=== PATIENT | male | born 1950 | race Caucasian/White ===

== ENCOUNTER 2024-06-08 10:36 | Outpatient (AMB) | payer MEDICARE, SELFPAY ==
[2024-06-08 10:38] VITALS: BP 116/83; PULSE 84; BMI 25.8
--- NOTE | 2024-06-08 10:38 | A.OFFVIS_ITS ---
Vital Signs 3 06/08/24 10:38 Height 5 ft 10 in Weight 179 lb 14.355 oz BMI 25.8 BP 116/83 Blood Pressure Location Rt brachial Position Sitting Pulse 84 Intake Visit Reasons: [place] screening, trouble swallowing Intake Note: New patient in office today for colonoscopy screening and trouble swllowing. . CC: Lexus c/o trouble swallowing for about two years. He reports that he feels like a bruise when he touches the left side of his throat/neck. Per patient sometimes he feels the food stays stuck and he has to stop eating to go and try take the food out. Environmental Services Coordinator Required: No Accompanied by: Self / Same As Patient Allergies No Known Allergies Allergy (Verified 06/08/24 10:50) HPI HPI [place] screening, trouble swallowing: Details: (with Carline) Patient is a 73-year-old male who comes in today for dysphasia. Referred by PCP. He reports onset couple years ago with recent exacerbation in symptoms States the sensations is at the throat area. Shares symptoms primarily occur with solids, rice is the main culprit. Endorses trouble with cold liquids but rare-can tolerate shakes/smoothies without difficulty. States symptoms occur with approximately 30% of his meals. When asked about appetite changes he a decreased appetite with an approximate 5lb weight loss in the past month. Associated symptoms: Left side of throat tenderness to touch X 8-10 months, decreased in appetite X one month, hoarseness but rare Aggravating factors: As above Alleviating attempts: hydration, induced evacuation of food, slow chewing Patient denies: systemic symptoms, n/v or melena/hematochezia Chronic GERD, relieved with occasional OTC TUMS. Previously on PPI, off for years Cochlea implant placement one week ago. Prescribed opioids for pain, now with constipation. Otherwise with normal stools without bleeding. Reports tolerating anesthesia well known hemorrhoids. Stable Recent sleep study indicating severe sleep apnea , follow up pending to review CPAP needs. Off rosuvastatin X 6 months, secondary to muscles weakness to legs. Reports recent labs with stable results, including TSH and lipids. Did have benign thyroid biopsy decade ago Last colonoscopy 2016 at [facility]. EGD at the same time. He does not recall any concerning findings. Prefers that Dr. Tavarez completes endoscopy/colonoscopy Social hx: 1 drink approx 6x/year denies recreational drug use Non-smoker Denies personal CA hx Denies family hx of CA Per patient presented labs via PCP portal collected 06/01/24: Normal CMP, CBC, iron studies and ferritin TSH last collected 10/2023 and in normal range [facility] Medical History (Updated 06/08/24 @ 15:47 by BIENVENIDO Merino) External hemorrhoids Insomnia Hypothyroid Hearing loss in right ear DMITRI (obstructive sleep apnea) Dysphagia Surgical History History of esophagogastroduodenoscopy (EGD) H/O colonoscopy S/P ureteral reimplantation H/O shoulder surgery S/P trigger finger release H/O lymph node excision History of lumbar surgery S/P endoscopic carpal tunnel release Previous back surgery Family History Brother Coronary artery disease Heart disease Mother Heart disease Father Stroke Social History Alcohol intake: current Alcohol intake frequency: holidays/special occasions only Patient Tobacco Use Status: Never used Tobacco Review of Systems Const All systems reviewed & are unremarkable except as noted in HPI and below Physical Exam Vital Signs: Last Vital Signs Pulse 84 06/08/24 10:38 BP 116/83 06/08/24 10:38 BMI result Body Mass Index 25.8 Const General: healthy appearing, no acute distress and well developed Nutritional Appearance: well nourished Orientation/consciousness: patient oriented x3 HEENT Head: Yes normal to inspection, Yes normocephalic and Yes atraumatic Ears: hearing grossly impaired on the right Face and sinus: Yes normal facial exam Face images: 2 1. Marked tenderness with palpation Mouth: Normal oral and palatal mucosa present Throat: Yes posterior oropharynx normal, Yes uvula midline and Yes tonsils absent Eyes General: appearance normal, both eyes and all related structures Neck Neck: Yes normal visual inspection Thyroid: Thyroid normal Resp Effort & Inspection: normal respiratory effort, able to speak in complete sentences, no tracheal deviation and symmetric chest movement Auscultation: clear to auscultation bilaterally Cardio Jugular venous distension: no JVD Rate: regular rate Rhythm: regular rhythm Heart sounds: S1 normal heart sound present, S2 normal heart sound present, no gallops and no murmurs GI Inspection: Yes normal to inspection and No distended Palpation (GI): Soft to palpation, not firm, nontender and No hepatosplenomegaly present Auscultation: normal bowel sounds Skin General skin exam: elasticity normal and turgor normal Neuro General: patient oriented x3 Gait exam (Neuro): Normal gait present Psych Appearance: grossly normal Mental Status: mental status grossly normal Speech and movement: Normal speech and movement present Affect: normal affect Attitude: cooperative Thought process: Normal thought process present Thought content: Normal thought content present Insight: Good insight present (Psych) Judgement: Good judgement present (Psych) Assessment & Plan Assessment & Plan (1) Pre-op examination: Code(s): Z01.818 - Encounter for other preprocedural examination Category: Medical (2) Dysphagia: Code(s): R13.10 - Dysphagia, unspecified Category: Medical Plan: EGD 2016 without abnormal findings. Although, indications unclear. DDX reviewed:Inflammatory process VS vocal cord dysfunction VS esophageal narrowing/obstruction VS thyroid involvement. Advised barium swallow for further evaluation. We will also scheduled for endoscopy. Avoid triggers. He is agreeable to plan. Follow-up 8 weeks or sooner as needed. (3) DMITRI (obstructive sleep apnea): Code(s): G47.33 - Obstructive sleep apnea (adult) (pediatric) Category: Medical Plan: Follow up with ordering provider pending. (4) Hearing loss in right ear: Code(s): H91.91 - Unspecified hearing loss, right ear Category: Medical Plan: S/P initial cochlear implant placement. Plan (with Carline) Patient is a 73-year-old male who comes in today for dysphasia. Referred by PCP. He reports onset couple years ago with recent exacerbation in symptoms States the sensations is at the throat area. Shares symptoms primarily occur with solids, rice is the main culprit. Endorses trouble with cold liquids but rare-can tolerate shakes/smoothies without difficulty. States symptoms occur with approximately 30% of his meals. When asked about appetite changes he a decreased appetite with an approximate 5lb weight loss in the past month. Associated symptoms: Left side of throat tenderness to touch X 8-10 months, decreased in appetite X one month, hoarseness but rare Aggravating factors: As above Alleviating attempts: hydration, induced evacuation of food, slow chewing Patient denies: systemic symptoms, n/v or melena/hematochezia Chronic GERD, relieved with occasional OTC TUMS. Previously on PPI, off for years Cochlea implant placement one week ago. Prescribed opioids for pain, now with constipation. Otherwise with normal stools without bleeding. Reports tolerating anesthesia well known hemorrhoids. Stable Recent sleep study indicating severe sleep apnea , follow up pending to review CPAP needs. Off rosuvastatin X 6 months, secondary to muscles weakness to legs. Reports recent labs with stable results, including TSH and lipids. Did have benign thyroid biopsy decade ago Last colonoscopy 2016 at [facility]. EGD at the same time. He does not recall any concerning findings. Prefers that Dr. Tavarez completes endoscopy/colonoscopy Social hx: 1 drink approx 6x/year denies recreational drug use Non-smoker Denies personal CA hx Denies family hx of CA Per patient presented labs via PCP portal collected 06/01/24: Normal CMP, CBC, iron studies and ferritin TSH last collected 10/2023 and in normal range Time: I spent a total of 30 minutes on the date of encounter which includes: Preparing to see the patient (reviewed previous documentation, test results and medical history) Performing a medically appropriate exam and/or evaluation Ordering medications, tests, and procedures Documenting clinical information in the health record Orders: Orders 2 FL barium swallow Today R13.10 - Dysphagia, unspecified EGD - GI Use Only Today TSH reflex Free T4 Today R13.10 - Dysphagia, unspecified Colonoscopy - GI Use Only Today Medications: New 2 bisacodyl pre colonoscopy prep 5 mg PO ONCE 4 tabs 0RF simethicone (Gas Relief (simethicone)) per colonoscopy prep instructions 125 mg PO ONCE 4 caps 0RF abdominal distention peg 3350-electrolytes 236-22.74-6.74 -5.86 gram until fecal effluent is clear 240 mL PO Q10M 4,000 mL 0RF Coding Level of Care Code New Pt New Pt Level 3 (59324) Patient Type New Diagnoses Pre-op examination Z01.818 Dysphagia R13.10 DMITRI (obstructive sleep apnea) G47.33 Hearing loss in right ear H91.91
--- OUTSIDE RECORDS SUMMARY | 2024-06-08 11:45 | XMS_ITS | Encounter Summary ---
Author Organization [facility] Address [address] [place] [address] Care Team Providers Care [employer]cel [employer] Delivery Name Role Phone Cruzito Cannon Primary Care Provider [phone] Reason for Visit * Reason Onset Date Comments PAC- Edgardo-telehealth appt 06/23/2022 Encounter Details Date Type Department Care Team (Late st Contact Info) Description 06/23/2022 Telephone [facility] [address] [place] [id number] Telephone Intake, Staff PAC- Edgardo-telehealth appt Social History Tobacco Use Types Packs/Day Years Used Date Smoking Tobacco: Never Smokeless Tobacco: Never Alcohol Use Standard Drinks/Week Comments Never 0 (1 standard drink = 0.6 oz pur e alcohol) Sex and Gender Information Value Date Recorded Sex Assigned at Not on file Legal Sex Male 5:04 AM EDT Gender Identity Not on file Sexual Orientation Not on file documented as of this encounter Miscellaneous Notes * Telephone Encounter - Carmencita Mike - 06/23/2022 4:41 PM EDT Pt has appt scheduled with Dr boudreaux for tomorrow 06/24 @ 345 for a MRI follow up and he would like to know if this can be changed to a telehealth appt if possible. Please reach out to patient [phone] documented in this encounter Plan of Treatment Not on file documented as of this encounter Visit Diagnoses Not on filedocumented in this encounter Care Teams [employer] Delivery Relationship Specialty Start Date End Date Cruzito Cannon [facility] [address] [place] [address] PCP - General Internal Medicine 04/06/22 documented as of this encounter
--- OUTSIDE RECORDS SUMMARY | 2024-06-08 11:45 | XMS_ITS | Data Portability ---
Author Organization [place] - [facility], Allergy Address [address] [address] Care Team Providers Care Career Services Director Name Role Phone CELESTE MORENO Primary Care Provider Assessment Encounter Date Assessment Date Assessment LastModified by Organization Details LastModified Time 01/31/2024 01/31/2024 Patient's recent history of left-sided ear blockage appears to be transient eustachian tube dysfunction brought on by airplane flight which has since resolved. Audiometric testing shows near normal hearing on the left, and continued profound sensorineural hearing loss on the right. No additional workup or treatment is required for the left ear. With regards to the single-sided deafness, the patient would be a good candidate to consider the Osia bone-conduction implant. We discussed how this device is a significant improvement on his old Baha Attract technology which he never really got good benefits from. I gave him an Osia brochure to read at home, and I will set him up an appointment with Sophie in audiology who can proceed with bone-conduction demo and show him the latest Osia technology. If the patient wants to proceed with surgery, we can consider a telehealth visit to discuss surgical details in more depth. Not available 01/31/2024 18:57:47 03/30/2024 03/30/2024 His symptoms are c/w neuropathic pain, no blisters to suggest shingles, will try a short course of steroids, follow up neurologist/ neurosurgeon. He will reschedule his CI evaluation. [email or web address] Not available 04/03/2024 10:46:05 Plan of Treatment Reminders Order Date Submit Date Provider Last Modified By Organization Details Last Modified Time Details Appointments Post Op 2024 01:15P M RENEE GARCIA PA-C Not available Not available Not available Lab None recorded. Referral None recorded. Procedures None recorded. Surgeries implantat ion of electroma gnetic bone conductio n hearing device in temporal bone (SURG) 2024 025 [email or web address] Not available 05/05/2024 15:01:18 Imaging None recorded. Medication Orders prednison e 20 mg tablet 2024 025 [id number], [address] [place], [address], 03/30/2024 11:49:40 Patient TargetsNo targets recorded. Patient InstructionsNo instructions recorded. Reason for Referral None Reported. Results Created Date Observation Date Name Description Value Unit Range Abnormal Flag Note LastModifiedBy Organization Detail LastModifiedTime 02/02/20 24 audio gram No observ ation record ed. BARCODE Not Available 2023 11:08:55 Result Notes None recorded. Problems Name Problem SNOMED Code Status Onset Date Resolution Date Notes Provider Name and Address Organization Details Recorded Time Active cochleove stibular M? ? ?ni? ? 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; Note: Date Diagnosed : 02/09/2018 3:38 PM (388.72) Not Available [facility] 4 02:18:00 Allergic rhinitis 42990002 Active 2014 Allergic rhinitis: Due to other allergen; Note: Date Diagnosed : 05/16/2014 12:01 PM (477.8) Not Available [facility] 4 02:17:30 Tinnitus of left ear 87563081247 06 Active 2016 Tinnitus, left ear; Note: Date Diagnosed : 04/30/2016 12:53 PM (H93.12) Not Available [facility] 4 02:17:46 Subjectiv e tinnitus 03725853 Active 2014 Subjectiv e tinnitus; Note: Date Diagnosed : 03/27/2014 8:42 AM (388.31) Not Available [facility] 4 02:17:03 Vertigo of central origin NOS Active 2015 Vertigo of central origin, unspecifi ed ear; Note: Changed from H81.41 to H81.49 ( 7 1:24 PM) , Date Diagnosed : 06/11/2015 9:19 AM (H81.41) [mapped from ICD9 code: 386.2] Not Available [facility] 4 02:17:30 Dizziness and giddiness 746196287 Active 2015 Dizziness ; Note: Date Diagnosed : 03/27/2014 8:42 AM (780.4) ; Start Date : 5 Dizzine ss and giddiness ; Note: Date Diagnosed : 06/11/2015 9:19 AM (R42) [mapped from ICD9 code: 780.4] Not Available [facility] 4 02:17:05 Neck pain 21537458 Active 2019 Cervicalg ia; Note: Date Diagnosed : 04/06/2019 11:43 AM (M54.2) Not Available [facility] 4 02:17:54 Sudden idiopathi c hearing loss 042873129 Active 2020 Sudden idiopathi c hearing loss, left ear; Note: Date Diagnosed : 10/22/2020 5:03 PM (H91.22) Not Available [facility] 4 02:16:55 M? ? ?ni? ? ?re's disease 26850627 Active 2016 Meniere's disease, right ear; Note: Date Diagnosed : 06/11/2015 9:19 AM (H81.01) [mapped from ICD9 code: 386.01] ; Start Date : 6 Meniere 's disease, bilateral ; Note: Date Diagnosed : 09/03/2016 1:23 PM (H81.03) Not Available [facility] 4 02:17:05 Seasonal allergic rhinitis 611603338 Active 2015 Other seasonal allergic rhinitis; Note: Date Diagnosed : 06/11/2015 9:19 AM (J30.2) [mapped from ICD9 code: 477.8] Not Available [facility] 4 02:17:26 Sensorine ural hearing loss 77391626 Active 2015 Sensorine ural hearing loss, unilatera l, right ear, with unrestric jesu hearing on the contralat eral side; Note: Date Diagnosed : 10/21/2015 1:13 PM (H90.41) Not Available [facility] 4 02:17:31 Otalgia of right ear 5380560239 Active 2017 Otalgia, right ear; Note: Date Diagnosed : 07/30/2017 9:16 AM (H92.01) Not Available [facility] 4 02:17:17 Otalgia of left ear 8927998343 Active 2017 Otalgia, left ear; Note: Date Diagnosed : 02/09/2018 3:58 PM (H92.02) Not Available [facility] 4 02:17:05 Bilateral tinnitus 61231715320 02 Active 2021 Tinnitus, bilateral ; Note: Date Diagnosed : 06/10/2021 2:28 PM (H93.13) Not Available [facility] 4 02:16:58 Migraine variants 916714980 Active 2014 Migraine variant; Note: Date Diagnosed : 03/27/2014 8:42 AM (346.20) Not Available [facility] 4 02:17:53 Sensorine ural hearing loss of bilateral ears 942147256 Active 2016 Sensorine ural hearing loss, bilateral ; Note: Date Diagnosed : 08/28/2016 12:20 PM (H90.3) Sensori neural hearing loss, bilateral ; Note: Date Diagnosed : 07/02/2015 1:52 PM (H90.3) ; Start Date : 6 Not Available [facility] 4 02:17:11 Tinnitus of right ear 94301544780 08 Active 2015 Tinnitus, right ear; Note: Date Diagnosed : 06/11/2015 9:19 AM (H93.11) [mapped from ICD9 code: 388.31] Not Available [facility] 4 02:17:00 Impacted cerumen in left ear 00522150976 88906 Active 2017 Impacted cerumen, left ear; Note: Date Diagnosed : 02/09/2018 3:38 PM (H61.22) Not Available [facility] 4 02:17:31 Abnormal auditory perceptio n 30459398 Active 2017 Other abnormal auditory perceptio ns, left ear; Note: Date Diagnosed : 02/09/2018 3:58 PM (H93.292) Not Available [facility] 4 02:17:42 Follow-up visit Active 2019 Encounter for follow-up examinati on after completed treatment for condition s other than malignant neoplasm; Note: Date Diagnosed : 05/12/2019 3:39 PM (Z09) Medical surveilla nce following completed treatment ; Note: Date Diagnosed : 12/13/2015 12:59 PM (Z09) ; Start Date : 6 Not Available [facility] 4 02:16:53 Vertigo of central origin 35134587 Active 2021 Vertigo of central origin; Note: Date Diagnosed : 03/27/2014 8:42 AM (386.2) ; Start Date : 5 Vertigo of central origin; Note: Date Diagnosed : 06/10/2021 2:24 PM (H81.4) Not Available [facility] 4 02:16:58 Migraine 24399052 Active 2015 Other migraine, not intractab le, without status migrainos us; Note: Date Diagnosed : 06/11/2015 9:19 AM (G43.809) [mapped from ICD9 code: 346.20] Not Available [facility] 4 02:17:35 Dysfuncti on of eustachia n tube 34326025 Active 2023 SHARLENE WEBSTER MD [address] [facility] [address], [place], [address] , [place] - [facility] 4 16:36:49 Atypical facial pain 03884142 Active 2024 MIAN CHRISTENSEN MD [address] [facility],[place] [address], [place], [address] , [place] - [facility] 5 11:48:35 Notes:Ulcer of nose (septum) (478.19) CMS Risk: low risk CMS Treatment: established problem (to examiner): stable or improved Note: Date Diagnosed: 12/26/2013 12:30 PM (478.19) CMS Risk: low risk CMS Treatment: established problem (to examiner): stable or improved CMS Risk: low risk CMS Treatment: established problem (to examiner): stable or improved CMS Risk: low risk CMS Treatment: established problem (to examiner): stable or improved Note: Date Diagnosed: 12/26/2013 12:30 PM (478.19) Problem Notes None recorded. Procedures Surgical History Date Name Laterality Status Provider Name and Address Organization Details Recorded Time 06/03/19 25 IMPLANTATION OF ELECTROMAGNETIC BONE CONDUCTION HEARING DEVICE IN TEMPORAL BONE (SURG) completed Emmett Samson [place] - [facility] 06/06/2024 15:25:26 05/05/19 25 Telehealth completed SHARLENE WEBSTER MD [address] [facility],[place] [address], [place], [address], [place] - [facility] 05/05/2024 14:53:58 01/31/20 24 Comp Audio with Tymps (71944 & 54722) completed JOVAN NIETO [address] [facility],[place] [address], [place], [address], [place] - [facility] 01/31/2024 15:46:41 Imaging Results Imaging Date Name Status LastModified by Organiz ation Details LastModified Time 02/02/2024 audiogram completed BARCODE Information no t available 02/02/2024 11:08:55 Procedure Notes None recorded. Medical Equipment Implant [employer] Issuing Agency Serial Number Lot Number Status Provider Name and Address Organization Details Recorded Time Osia implant [facility] [id number], [id number] Y SHARLENE WEBSTER MD [address] [place] [address], [phone], [place] - [facility] 06/02/2024 14:01:29 Allergies Allergen ID Allergen Name Allergen Category Reaction Reaction Severity Criticality Documentation Date Start Date Code Code System Note Provider Name and Address Organization Details Recorded Time 56163 Bactrim medicatio n other Not available Not available 07/20/2023 60202 9 RxNorm React ion: unkno wn, unspe cifie d;; Not Available [facility] 00:51:30 Medications Name Sig Start Date Stop Date Status Note LastModified by Organization Details LastModified Time prednison e 10 mg tablet by mouth 06/10 completed Medicati on ID: [id number] D uration Value: 14 Prescri bed By Name: Sharlene Webster M.D. Bra nd Name: predniso ne Send Method: E-Prescr ibed Sub s Allowed: subs OK Speci al Instruct ion: Take 6 tabs once a day for 9 days, then take 5 tabs on day 10, 4 tabs on day 11, 3 tabs on day 12, 2 tabs on day 13, and 1 tab on day 14 Medic ationGen ericName : predniso ne Not Available Not Available Not Available sulfameth oxazole 400 mg-trimet hoprim 80 mg tablet TAKE 1 TABLET BY MOUTH TWICE A DAY FOR 7 DAYS 01/30 completed Not Available Not Available Not Available prednison e 20 mg tablet Take 2 tablet by mouth every morning for 3 days, then 1 tab by mouth for 3 days active Not Available Not Available No t Available Levoxyl 75 mcg tablet TAKE 1 TABLET BY MOUTH EVERY MORNING active Not Available Not Available No t Available omeprazol e 40 mg capsule,d elayed release 01/30 completed Medicati on ID: [id number] B rand Name: omeprazo le Send Method: E-Prescr ibed Sub s Allowed: subs OK Medic ationGen ericName : omeprazo le Not Available Not Available Not Available Zofran 8 mg tablet 1 tablet by mouth 12/15 completed Medicati on ID: [id number] Pr escribed By Name: Lacho Monzon nd Name: Zofran (as hydrochl oride) S end Method: E-Prescr ibed Sub s Allowed: subs OK Medic ationGen ericName : Zofran (as hydrochl oride) Not Available Not Available Not Available lorazepam 0.5 mg tablet 06/10 completed Medicati on ID: [id number] Dur ation Value: 30 Brand Name: lorazepa m Send Method: E-Prescr ibed Sub s Allowed: subs OK Medic ationGen ericName : lorazepa m Not Available Not Available Not Available tamsulosi n 0.4 mg capsule 02/05 completed Medicati on ID: [id number] D uration Value: 30 Brand Name: tamsulos in Send Method: E-Prescr ibed Sub s Allowed: subs OK Medic ationGen ericName : tamsulos in Not Available Not Available Not Available meclizine 25 mg tablet 1 tablet by mouth 12/15 completed Medicati on ID: [id number] Pr escribed By Name: Lacho Monzon nd Name: meclizin e Send Method: E-Prescr ibed Sub s Allowed: subs OK Medic ationGen ericName : meclizin e Not Available Not Available Not Available nortripty line 10 mg capsule 1 capsule by mouth 07/30 completed Medicati on ID: [id number] P rescribe d By Name: Lacho Monzon nd Name: nortript yline Se nd Method: E-Prescr ibed Sub s Allowed: subs OK Medic ationGen ericName : nortript yline Not Available Not Available Not Available omeprazol e 20 mg capsule,d elayed release TAKE 1 CAPSULE BY MOUTH EVERY DAY 03/30 completed Not Available Not Available Not Available gabapenti n 100 mg capsule 06/10 completed Medicati on ID: [id number] D uration Value: 30 Brand Name: gabapent in Send Method: E-Prescr ibed Sub s Allowed: subs OK Medic ationGen ericName : gabapent in Not Available Not Available Not Available lorazepam 1 mg tablet TAKE 1/2 TO 1 TABLET BY MOUTH AT BEDTIME NEEDED active Not Available Not Available No t Available Dyazide 37.5 mg-25 mg capsule Take 1 capsule by mouth once a day as directed 12/15 completed Medicati on ID: [id number] R lissette: () Brand Name: Dyazide Send Method: E-Prescr ibed Sub s Allowed: subs OK Medic ationGen ericName : Dyazide Not Available Not Available Not Available albuterol sulfate HFA 90 mcg/actua tion aerosol inhaler 03/30 completed Medicati on ID: [id number] B rand Name: albutero l sulfate Send Method: E-Prescr ibed Sub s Allowed: subs OK Medic ationGen ericName : albutero l sulfate Not Available Not Available Not Available Clements 5 mg-325 mg tablet 1-2 tablet by mouth 01/30 completed Medicati on ID: [id number] D uration Value: 7 Prescri bed By Name: Lacho Monzon nd Name: Clements Se nd Method: E-Prescr ibed Sub s Allowed: subs OK Medic ationGen ericName : Clements Not Available Not Available Not Available fluticaso ne propionat e 50 mcg/actua tion nasal spray,aicha pension 03/30 completed Medicati on ID: [id number] B rand Name: fluticas one propiona te Send Method: E-Prescr ibed Sub s Allowed: subs OK Medic ationGen ericName : fluticas one propiona te Not Available Not Available Not Available oxycodone 5 mg tablet Take 1 tablet every 4-6 hours by oral route as needed for 3 days, for pain. 2024 active Not Available Not Available Not Avai lable rosuvasta tin 5 mg tablet TAKE 1 TABLET BY MOUTH ONCE DAILY active Not Available Not Available No t Available bupropion HCl XL 150 mg 24 hr tablet, extended release TAKE 1 TABLET BY MOUTH EVERY DAY 03/30 completed Not Available Not Available Not Available alfuzosin ER 10 mg tablet,ex tended release 24 hr 02/05 completed Medicati on ID: [id number] B rand Name: jose whitten Send Method: E-Prescr ibed Sub s Allowed: subs OK Medic sonalionGen ericName : jose n Not Available Not Available Not Available oxycodone 10 mg tablet PLEASE SEE ATTACHED FOR DETAILED DIRECTIO NS active Not Available Not Available No t Available Paxlovid 300 mg (150 mg x 2)-100 mg tablets in a dose pack 01/30 completed Medicati on ID: [id number] B rand Name: Paxlovid (EUA) Se nd Method: E-Prescr ibed Sub s Allowed: subs OK Medic ationGen ericName : Paxlovid (EUA) Not Available Not Available Not Available Vitals Date Recorded Body height Body mass index (BMI) Body weight Provider Name and Address Organization Details Last Updated DateTime 03/30/2024 177.8 cm 25.1 kg/m2 09058.66 g Ameena Woodson [place] - [facility] 03/30/2024 11:03:50 Social History None recorded. Functional Status None recorded. Mental Status None recorded. Family History Nothing Reported. Medical History Condition Response Headaches Y Thyroid Problems Y High Cholesterol Y GERD/Reflux Y Past Encounters Encounter ID Performer Location Encounter Start Date Encounter Closed Date Diagnosis/Indication Diagnosis SNOMED-CT Code Diagnosis ICD10 Code Diagnosis Note [id number] JOVAN NIETO [facility] on [address] [place] [id number] 01/31/2024 15:46:23 01/31/2024 17:32:38 Sensorineural hearing loss of bilateral ears 643103199 H90.3 Audiologic al evaluation results: 01/31/2024 Right ear:DNT known profound loss Left ear:{{Norm al* Normal through 2 kHz Mild M oderate Mo derately-s evere Shyanne re Profoun d}} {{hearing hearing. s loping to a mild slopi ng to a moderate s loping to moderately severe slo ping to severe* sl oping to profound f lat high frequency low frequency mid frequency cookie bite roca curve}} {{with sen sorineural hearing loss with* cond uctive hearing loss with mixed hearing loss with}} {{excellen t* good fa ir poor no measurable }} word recognitio n. Tympanomet ry: Left Ear:{{Type A* Type As Type Ad Type C Type C, shallow & rounded Ty pe B Type B with large volume Cou ld not maintain a hermetic seal}} [id number] SHARLENE WEBSTER MD [facility] on [address] [place] [phone] 01/31/2024 16:32:41 01/31/2024 16:42:50 Sensorineural hearing loss of bilateral ears 218846557 H90.3 Audiologic al evaluation results: 01/31/2024 Right ear:DNT known profound loss Left ear:{{Norm al* Normal through 2 kHz Mild M oderate Mo derately-s evere Shyanne re Profoun d}} {{hearing hearing. s loping to a mild slopi ng to a moderate s loping to moderately severe slo ping to severe* sl oping to profound f lat high frequency low frequency mid frequency cookie bite roca curve}} {{with sen sorineural hearing loss with* cond uctive hearing loss with mixed hearing loss with}} {{excellen t* good fa ir poor no measurable }} word recognitio n. Tympanomet ry: Left Ear:{{Type A* Type As Type Ad Type C Type C, shallow & rounded Ty pe B Type B with large volume Cou ld not maintain a hermetic seal}} Dysfunctio n of eustachian tube 13484964 H68.102 Migraine variants 635656 005 G43.809 I strongly recommend that the patient seek consultati on with a neurologis t who is well versed in treatment of migraine phenomena, particular ly in light of the fact that there are multiple new pharmacolo gic options for treatment of chronic migraine that have not been available in the past. He will speak with his primary care physician about this. [id number] MIAN CHRISTENSEN MD [facility] on [address] [place] [id number] 03/30/2024 10:59:12 03/30/2024 12:49:42 Atypical facial pain 03381574 G50.1 [id number] JOVAN WONG [facility] [address] [place] [address],[place] [address] [place] [phone] 04/25/2024 10:50:25 04/26/2024 07:54:13 Sensorineural hearing loss of bilateral ears 175496697 H90.3 [id number] SHARLENE WEBSTER MD [facility] [address] [facility] [id number] 05/05/2024 08:17:46 05/08/2024 07:31:58 Sensorineural hearing loss 59920507 H90.41 Patient with right single-mayte ed deafness with essentiall y normal hearing in the left ear. The patient has been found to meet the audiologic and anatomic candidacy criteria for placement of {{right* l eft}} Osia bone conduction implant. Risks and benefits of Osia implantati on discussed with patient, including but not limited to cosmetic deformity, bleeding, loss of hair, numbness of ear and scalp, wound infection, skin necrosis, Implant failure with or without the need for replacemen t, CSF leak, meningitis , and intracrani al injury. Appropriat e expectatio ns reviewed. Patient voiced understand ing and wishes to proceed with surgery. I have provided patient with the contact informatio n for my operations scheduler. We will begin the scheduling process and see the patient back at the time of surgery. Patient {{will carmen l not*}} require medical clearance from their primary care provider preoperati vely. Health Concerns Section Related Observation LastModified by Organization Detai ls LastModified Time None Recorded Concern Status LastModified by Organization Details LastModified Time None Recorded Advance Directives Directive None Recorded Payers Encounter Date Sequence Insurance Name Policy Number Policy Manrique Covered Member ID Manrique Member ID Guarantor Name 01/31/2024 2 BCBS-ID:[employer] [facility] [employer] F (MEDICARE SUPPLEMENT) [id number] Ron Klein [id number] Ron Klein 01/31/2024 1 [place] [employer] Ron Klein [id number] Ron Klein 01/31/2024 2 BCBS-ID:[employer] [facility] [employer] F (MEDICARE SUPPLEMENT) [id number] Ron Klein [id number] Ron Klein 01/31/2024 1 [place] NATIONAL [employer]ERNMENT SERVICES Ron Klein [id number] Ron Klein 03/30/2024 2 BCBS-ID:[facility] PLAN F (MEDICARE SUPPLEMENT) [id number] Ron Klein [id number] Ron Klein 03/30/2024 1 MEDICARE B-[place]: [facility] Ron Klein [id number] Ron Klein 04/25/2024 2 BCBS-ID:[facility] PLAN F (MEDICARE SUPPLEMENT) [id number] Ron Klein [id number] Ron Klein 04/25/2024 1 MEDICARE B-[place]: [facility] Ron Klein [id number] 2 Ron Klein 05/05/2024 2 BCBS-ID:[facility] PLAN F (MEDICARE SUPPLEMENT) [id number] Ron Klein [id number] Ron Klein 05/05/2024 1 MEDICARE B-[place]: [facility] Ron Klein [id number] 2 Ron Klein Notes Date Note Type Note Provider Name and Address Organization Details Recorded Time 01/31/2024 text/html 73-year-old male with history of progressive right sided sensorineural hearing loss resulting in profound sensorineural hearing loss on the right. He has had fluctuations of hearing loss and distortion in the left ear over the years which may be related to an underlying uncontrolled migraine phenomenon. He has history of chronic daily headaches. He has not had true vertigo, only low-grade imbalance. Patient not currently under the care of of a neurologist. Patient reports that 2 weeks ago he was on a flight and began noticing problems with the left ear. He noticed blockage sensation in the left ear as well as a sensation of fluid moving around in the ear. This sensation has improved significantly over the past 2 weeks. In addition, the patient wonders what else can be done about his right single-sided deafness. He had Baha Attract implant in the past which was not helpful for him so we removed the magnet so he could have MRI scanning for his brain that was unencumbered by magnetic artifact. SHARLENE WEBSTER MD [address] [place] [address], [phone], [facility] - [facility] 01/31/2024 18:58:38 03/30/2024 text/html 73 yo M presents for ear assessment. Getting pain extending to the left eye, radiating around the scalp. T to 100 for one night Taking ibuprofen, mostly helping but not yesterday No specific migraine history, has history of TMJ. MIAN CHRISTENSEN MD [address] [facility],[address], [address], [place] - [facility] 04/03/2024 10:46:24 04/25/2024 text/html Here today to di scuss Osia and get a demonstration of bone conduction technology. Hx: Meniere's of the right that led to a ear. Mild HF hearing loss in the left ear. No longer a CI candidate due to auditory deprivation. He previously had a BAHA attract system, but he did not wear it very often and he had the magnet removed due to needed an MRI of the head. He states that he does not need serial MRI's and the shadow of the Osia device is not a concern for him at this time. Went over the device, its accessories (minimic vs aqua+), and battery life. Bone conduction demo was completed in the medrano after fitting of BAHA6 with BCdirect on a softband. WRS through soundfield speaker with masking of good ear scores were as followed.plugged but unmasked 50dB: 100%plugged but unmasked 40dB: 73%Plugged and masked 50dB: 0%Plugged and masked 65dB: 40% Audio results:Plugged and unmasked: mild to moderateplugged and masked: moderate rising to mild sloping to profound. Discussed in detail the improvements of the Osia device and what we expect to see which includes better speech clarity and better retention of HF. Discussed in detail the difficulties he is still expected have. He is aware that this does not bring back hearing to the right ear, help with localization, or help with his tinnitus. It will help with situational awareness, the ability to have people talking on his right side, and improve his ability to hear in background noise. Decided to move forward with Osia device. He needs to schedule a telehealth visit with Dr Webster to discuess the surgery, Mary Lou will contact him. Surgical schedulers information was given along with instructions. JOVAN WONG [address], [id number], [facility] 04/25/2024 12:06:59 05/05/2024 text/html 73-year-old male with history of progressive right sided sensorineural hearing loss resulting in profound sensorineural hearing loss on the right. He had Baha Attract implant in the past which was not helpful for him so we removed the magnet so he could have MRI scanning for his brain that was unencumbered by magnetic artifact.Patient recently underwent audiologic demonstration visit with audiology for the Osia bone-conduction implant for treatment of single-sided deafness. Patient was very pleased with the auditory signal coming from this device and would like to proceed with placement of Osia implant SHARLENE WEBSTER MD [address], [id number], [facility] 05/05/2024 14:56:20
--- OUTSIDE RECORDS SUMMARY | 2024-06-08 11:45 | XMS_ITS | Referral Summary ---
Author Organization [facility] Address [address] [place] [address] Care Team Providers Care Laser Beam Machine Operator Name Role Phone [place] Primary Care Provider [phone] Allergies Active Allergy Reactions Criticality Noted Date Comments Alfuzosin Other (see comments) 01/07/2022 Nauseau, spacy and felt sick Atorvastatin Other (see comments) 05/20/2020 Stomach upset and headaches nauseau Constipated . Gabapentin Other (see comments) 12/24/2020 [place] spacey Hydrochlorothiazide Other (see comments) 2016 [place] space[place] Hydromorphone Other (see comments) 03/31/2021 Made headache worse Nortriptyline Other (see comments) 02/05/2017 [place] spacey Medications albuterol (PROAIR HFA,VENTOLIN HFA) 90 mcg inhaler 01/27/2022 Active alfuzosin (UROXATRAL) 10 mg 24 hr tablet 06/10/2021 Act kimberly amoxicillin-cla vulanate (AUGMENTIN) 875-125 mg tablet 01/27/2022 Active aspirin 81 mg EC tablet Take 81 mg by mouth daily. Active cyclobenzaprine (FLEXERIL) 10 mg tablet Take 10 mg by mouth. 07/28/2021 Active fluticasone propionate (FLONASE) 50 mcg/actuation nasal spray 06/10/2021 Active LevoxyL 75 mcg tablet 03/26/2022 Active LORazepam (ATIVAN) 1 mg tablet 03/29/2022 Active meloxicam (MOBIC) 7.5 mg tablet 03/10/2022 Active multivitamin capsule Take 1 capsule by mouth daily. Active nirmatrelvir-ri tonavir 300 mg (150 mg x 2)-100 mg tablet 02/05/2022 Active omeprazole (PriLOSEC) 40 mg capsule 02/05/2022 Active oxyCODONE IR (ROXICODONE) 5 mg tablet 04/22/2021 Active rosuvastatin (CRESTOR) 5 mg tablet 02/16/2022 Active tamsulosin (Flomax) 0.4 mg capsule Take 0.4 mg by mouth. 05/01/2021 Active Active Problems Problem Noted Date Diagnosed Date Rotator Cuff Sprain (Capsule) 02/14/2010 Social History Tobacco Use Types Packs/Day Years Used Date Smoking Tobacco: Never Smokeless Tobacco: Never Tobacco Cessation:Counseling Given: Not Answered Alcohol Use Standard Drinks/Week Comments Never 0 (1 standard drink = 0.6 oz pur e alcohol) Sex and Gender Information Value Date Recorded Sex Assigned at Not on file Legal Sex Male 5:04 AM EDT Gender Identity Not on file Sexual Orientation Not on file Last Filed Vital Signs Vital Sign Reading Time Taken Comments Blood Pressure - - Pulse - - Temperature - - Respiratory Rate - - Oxygen Saturation - - Inhaled Oxygen Concentration - - Weight 80.7 kg (178 lb) 04/08/2022 10:34 AM EST Height 179.1 cm (5' 10.5 ) 04/08/2022 10:[address] Body Mass Index 25.18 04/08/2022 10:34 AM EST Plan of Treatment Not on file Insurance [facility] MEDICARE Care Teams Laser Beam Machine Operator Relationship Specialty Start Date End Date Cruzito Cannon [facility] Internal Medicine [address] [place] [address] PCP - General Internal Medicine 04/06/22
--- OUTSIDE RECORDS SUMMARY | 2024-06-08 11:45 | XMS_ITS | Clinical Summary ---
Author Organization [facility] Address [address] [place] [address] Care Team Providers Care Data Support Specialist Name Role Phone [place] Primary Care Provider [phone] Allergies Active Allergy Reactions Criticality Noted Date Comments Alfuzosin Other (see comments) 01/07/2022 Nauseau, spacy and felt sick Atorvastatin Other (see comments) 05/20/2020 Stomach upset and headaches nauseau Constipated . Gabapentin Other (see comments) 12/24/2020 [place] spacey Hydrochlorothiazide Other (see comments) 2016 [place] spacey Hydromorphone Other (see comments) 03/31/2021 Made headache worse Nortriptyline Other (see comments) 02/05/2017 [place] spacey Medications albuterol (PROAIR HFA,VENTOLIN HFA) 90 [...] 04/08/2022 10:34 AM EST Plan of Treatment Health Maintenance Due Date Last Done Comments Cologuard 1952 Colon Cancer Screening 1950 Colonoscopy 1952 FOBT / Fit Test 1952 Hepatitis C Screening 1950 Sigmoidoscopy 1950 Medicare AWV 1953 Zoster Vaccines (1 of 2) 2002 COVID-19 Vaccine ( season) 2023 01/15/2021, 06/22/2020, 06/01/2020 Alcohol/Substance Use Screening 03/08/2024 Depression Screening and Follow-Up 03/08/2024 Health Care Proxy Review 03/08/2024 Social Drivers of Health Annual Screening 03/08/2024 Influenza Vaccine (Season Ended) 2024 12/24/2020, 12/07/2019, 03/11/2018, Additional history exists DTaP,Tdap,and Td Vaccines (2 - Td or Tdap) 12/01/2025 12/02/2015, 03/08/2002 RSV Vaccine (60+ years old and patients) (1 - 1-dose 75+ series) 06/21/2027 Pneumococcal Vaccine: 50+ Years Completed 02/20/2020, 03/11/2018 Hepatitis B Vaccines Aged Out No long er eligible based on patient's age to complete this topic Insurance [facility] MEDICARE Care Teams Data Support Specialist Relationship Specialty Start Date End Date Cruzito Cannon [facility] [place] Internal Medicine [address] [place] [address] PCP - General Internal Medicine 04/06/22
== END 2024-06-08 11:59 | disposition home or self-care (01) ==
LOC: HO.HGI 10:36
PROVIDERS: PCP Internal Medicine; Visit Provider Nurse Practitioner
DX: R13.10 Dysphagia, unspecified (principal); Z12.11 Encounter for screening for malignant neoplasm of colon; G47.33 Obstructive sleep apnea (adult) (pediatric); H91.91 Unspecified hearing loss, right ear
CPT/HCPCS: 99203

== ENCOUNTER 2024-06-08 10:36 | Outpatient (REF) | payer MEDICARE, SELFPAY ==
--- OUTSIDE RECORDS SUMMARY | 2024-06-08 13:21 | XMS_ITS | Clinical Summary ---
Author Organization [facility] Address [address] [place] [address] Care Team Providers Care Argon Tester Name Role Phone [place] Primary Care Provider [phone] Allergies Active Allergy Reactions Criticality Noted Date Comments Alfuzosin Other (see comments) 01/07/2022 Nauseau, spacy and felt sick Atorvastatin Other (see comments) 05/20/2020 Stomach upset and headaches nauseau Constipated . Gabapentin Other (see comments) 12/24/2020 [place] spacey Hydrochlorothiazide Other (see comments) 2016 [place] space[place] Hydromorphone Other (see comments) 03/31/2021 Made headache worse Nortriptyline Other (see comments) 02/05/2017 [place] spacey Medications albuterol (PROAIR HFA,VENTOLIN HFA) 90 [...] patient's age to complete this topic Insurance [facility] MEDICARE Care Teams Argon Tester Relationship Specialty Start Date End Date Cruzito Cannon Fabiola [facility] [place] Internal Medicine [address] [place] [address] PCP - General Internal Medicine 04/06/22
--- OUTSIDE RECORDS SUMMARY | 2024-06-08 13:21 | XMS_ITS | Referral Summary ---
Author Organization [facility] Address [address] [place] [address] Care Team Providers Care Wood Hacker Name Role Phone [place] Primary Care Provider [phone] Allergies Active Allergy Reactions Criticality Noted Date Comments Alfuzosin Other (see comments) 01/07/2022 Nauseau, spacy and felt sick Atorvastatin Other (see comments) 05/20/2020 Stomach upset and headaches nauseau Constipated . Gabapentin Other (see comments) 12/24/2020 [place] spacey Hydrochlorothiazide Other (see comments) 2016 [place] spacey Hydromorphone Other (see comments) 03/31/2021 Made headache worse Nortriptyline Other (see comments) 02/05/2017 [place] spacey Medications albuterol (PROAIR HFA,VENTOLIN HFA) 90 [...] Plan of Treatment Not on file Insurance [facility] MEDICARE Care Teams Wood Hacker Relationship Specialty Start Date End Date Cruzito Cannon [facility] Internal Medicine [address] [place] [address] PCP - General Internal Medicine 04/06/22
--- OUTSIDE RECORDS SUMMARY | 2024-06-08 13:21 | XMS_ITS | Encounter Summary ---
Author Organization [facility] Address [address] [place] [address] Care Team Providers Care Airframe And Power Plant Mechanic Name Role Phone Cruzito Cannon Primary Care Provider [phone] Reason for Visit * Reason Onset Date Comments PAC- Edgardo-telehealth appt 06/23/2022 Encounter Details Date Type Department Care Team (Late st Contact Info) Description 06/23/2022 Telephone [facility] [address] [place] [id number] Telephone Intake, Staff PAC- Edgardo-telehealth appt Social [...] if possible. Please reach out to patient [phone] documented in this encounter Plan of Treatment Not on file documented as of this encounter Visit Diagnoses Not on filedocumented in this encounter Care Teams Airframe And Power Plant Mechanic Relationship Specialty Start Date End Date Cruzito Cannon [facility] Internal Medicine [address] [place] [address] PCP - General Internal Medicine 04/06/22 documented as of this encounter
[2024-06-08 14:26] LABS: TSH reflex Free T4 2.14 uIU/mL (0.32-4.0)
== END 2024-06-08 10:37 | disposition home or self-care (01) ==
LOC: HO.LAB 10:36
PROVIDERS: Absent Provider Nurse Practitioner Family; PCP Internal Medicine; Visit Provider Nurse Practitioner
DX: R13.10 Dysphagia, unspecified (principal)
CPT/HCPCS: 36415; 84443; 99202

== ENCOUNTER 2024-08-24 06:45 | Day surgery (SDC) | payer MEDICARE, SELFPAY ==
[2024-08-22 15:03] VITALS: BMI 25.8
--- NOTE | 2024-08-23 10:09 | HO.ANESPROP2 ---
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) Post herpetic neuralgia (Acute) Insomnia (Acute) Generalized osteoarthritis (Acute) Restless legs syndrome (Acute) Fibrosis of urinary bladder (Acute) History of MRSA infection (Acute) Migraines (Acute) Menieres disease (Acute) Hypothyroid (Acute) High cholesterol (Acute) Hearing loss in right ear (Acute) DMITRI (obstructive sleep apnea) (Acute) Past Medical History Medical History (Updated 06/08/24 @ 15:47 by BIENVENIDO Merino) External hemorrhoids Insomnia Hypothyroid Hearing loss in right ear DMITRI (obstructive sleep apnea) Dysphagia Family History Family History Brother Coronary artery disease Heart disease Mother Heart disease Father Stroke Surgical History Surgical History History of esophagogastroduodenoscopy (EGD) H/O colonoscopy S/P ureteral reimplantation H/O shoulder surgery S/P trigger finger release H/O lymph node excision History of lumbar surgery S/P endoscopic carpal tunnel release Previous back surgery Social History Social History Alcohol intake: current Alcohol intake frequency: does not drink Patient Tobacco Use Status: Never used Tobacco Second Hand Smoke Exposure: No Use of substances other than those prescribed or required for medical reasons: No Have you been hit, kicked, punched, or otherwise hurt by someone within the past year? If so, by whom?: No Are you DNR?: No Advance Directives: No Advance Directives Information Provided: Yes Advance Directives on File: No Poor oral hygiene: No Meds Allergies Allergy/AdvReac Type Severity Reaction Status Date / Time No Known Allergies Allergy Verified 06/08/24 10:50 Home Medications ?Medication ?Instructions ?Recorded ?Confirmed ?Last Taken ?Type ibuprofen 400 mg tablet 800 mg PO .two times week 05/25/24 08/24/24 Unknown History levothyroxine 75 mcg tablet 75 mcg PO DAILY 05/25/24 08/24/24 Unknown History (Levoxyl) lorazepam 1 mg tablet 0.5 mg PO BEDTIME PRN Sleep 05/25/24 08/24/24 Unknown History multivitamin 1 tab PO DAILY 05/25/24 08/24/24 Unknown History rosuvastatin 5 mg tablet 5 mg PO DAILY 05/25/24 08/24/24 Unknown History Exam Height,Weight and Vital Signs: Height 5 ft 10 in Weight 81.647 kg Assessment and Plan Assessment Anesthesia Assessment: Chart Reviewed Documented by User: Willie Carrasquillo MD 08/24/24 07:52 [facility] Past Medical History Medical History (Updated 06/08/24 @ 15:47 by BIENVENIDO Merino) External hemorrhoids Insomnia Hypothyroid Hearing loss in right ear DMITRI (obstructive sleep apnea) Dysphagia Family History Family History Brother Coronary artery disease Heart disease Mother Heart disease Father Stroke Family history of problems with anesthesia: No Surgical History Surgical History History of esophagogastroduodenoscopy (EGD) H/O colonoscopy S/P ureteral reimplantation H/O shoulder surgery S/P trigger finger release H/O lymph node excision History of lumbar surgery S/P endoscopic carpal tunnel release Previous back surgery History of Problems with Anesthesia: No Social History Social History Alcohol intake: current Alcohol intake frequency: does not drink Patient Tobacco Use Status: Never used Tobacco Second Hand Smoke Exposure: No Use of substances other than those prescribed or required for medical reasons: No Have you been hit, kicked, punched, or otherwise hurt by someone within the past year? If so, by whom?: No Are you DNR?: No Advance Directives: No Advance Directives Information Provided: Yes Advance Directives on File: No Poor oral hygiene: No Meds Allergies Allergy/AdvReac Type Severity Reaction Status Date / Time No Known Allergies Allergy Verified 06/08/24 10:50 Home Medications ?Medication ?Instructions ?Recorded ?Confirmed ?Last Taken ?Type ibuprofen 400 mg tablet 800 mg PO .two times week 05/25/24 08/24/24 Unknown History levothyroxine 75 mcg tablet 75 mcg PO DAILY 05/25/24 08/24/24 Unknown History (Levoxyl) lorazepam 1 mg tablet 0.5 mg PO BEDTIME PRN Sleep 05/25/24 08/24/24 Unknown History multivitamin 1 tab PO DAILY 05/25/24 08/24/24 Unknown History rosuvastatin 5 mg tablet 5 mg PO DAILY 05/25/24 08/24/24 Unknown History Exam Airway Mallampati Class: II TM Dist: >3cm Neck ROM: Full Assessment and Plan Assessment Anesthesia Assessment: Anesthesia Plan Discussed Final Anesthetic Review Family History of Problems with Anesthesia: No History of Problems with Anesthesia: No NPO: Yes ASA Class: II Final Preanesthetic Review: No Changes in Pt Med Stat, Meds/Allgs Chart Reviewed, Consent Obtained/Reviewed and Anes Risks/Benef Reviewed Patient Risk: Low Procedure Risk: Low Anesthetic Plan Anesthetic Plan: TIVA Disposition: Standard PACU
[2024-08-24 07:19] VITALS: BMI 25.3
[2024-08-24 07:33] VITALS: BP 109/82; PULSE 81; RESP 16; TEMP 36.4; O2SAT 93
--- NOTE | 2024-08-24 07:41 | MHC.SHP ---
Pre-Procedural Eval Section A - 24 Hr Update-Section A only Date of Service: 08/24/24 Section B - Complete if H&P > 30 days Chief Complaint: Encounter for other preprocedural,dysphagia Relevant Family History (Specify if Yes): No Relevant Social History: None Present Medications: see Short Stay Collaborative assessment Medical History: Significant History (External hemorrhoids Insomnia Hypothyroid Hearing loss in right ear DMITRI (obstructive sleep apnea) Dysphagia) History of Previous Operations: Relevant previous surgery/procedure and date(s) (History of esophagogastroduodenoscopy (EGD) H/O colonoscopy S/P ureteral reimplantation H/O shoulder surgery S/P trigger finger release H/O lymph node excision History of lumbar surgery S/P endoscopic carpal tunnel release Previous back surgery) Allergies: Allergies Allergy/AdvReac Type Severity Reaction Status Date / Time No Known Allergies Allergy Verified 06/08/24 10:50 Review of Systems Sugical H&P ROS: Negative: Constitution, Cardiovascular, Respiratory, Neurological, Psychiatric, Hem-Onc, Allergic/Immunologic, Gastrointestinal, Genitourinary, Musculoskeletal, Integumentary, Endocrine and Eyes/Ears/Nose/Throat Exam Surgical H&P Exam: Normal: HEENT, Normal: Heart, Normal: Lungs, Normal: Extremities, Normal: Abdomen, Normal: Skin and Normal: Neurological Plan Diagnosis/Plan: Unchanged I have reviewed the history and physical and performed a pertinent physical examination on my patient. No changes have occurred unless specified. Time Spent With Patient Time: Total time managing care of this patient today ____ minutes.
[2024-08-24] MEDS: Lactated Ringers 1,000 ML 100 ML IVCONT (07:47)
--- NOTE | 2024-08-24 08:21 | P.OPN-COLO_ITS ---
Colonoscopy Operative Note Operative Note Date of Service: 08/24/24 Narrative: Operative Information Procedure Description: EGD, Colonoscopy Indication: dysphagia and screening Anesthesia: MAC FLEXIBLE TRANSORAL UPPER GASTROINTESTINAL ENDOSCOPY AND COLONOSCOPY PROCEDURE NOTE UPPER ENDOSCOPY Consent: Indications for the procedure and potential complications of bleeding, perforation, reaction to medications and missed diagnosis were discussed with the patient and informed consent was obtained. Instrument: Olympus GIF H 190 J mid size upper endoscope Monitoring: Vital signs and clinical assessment, continuous EKG monitoring, Pulse oximetry, Carbon Dioxide monitoring and blood pressure monitoring were done throughout the procedure. Procedure: The patient was placed in the left lateral decubitis position and pre-procedure medications were administered and a bite block was placed. The endoscope was inserted into the mouth and advanced under direct vision to the third part of duodenum. A careful inspection was made as the upper endoscope was withdrawn including a retroflexed examination of the proximal stomach; Findings and interventions are described below. Findings: Larynx:normal Esophagus: GE junction at 40 cm, diaphragm hiatus at 43 cm, consistent with 3 cm sliding hiatal hernia with schatzki ring noted, balloon dilation done to 20 mm at LES and UES with tear noted in LES, bx taken from distal and proximal areas Stomach: mild erythema with few erosions. Biopsies were obtained. Grade 2 flap valve on retroflexed examination of the cardia. Duodenum: mild duodenitis, bx taken Intervention: Biopsies as noted above, balloon dilation COLONOSCOPY Instrument: Olympus variable stiffness pediatric scope 190L Colonoscopy Monitoring: Vital signs and clinical assessment, continuous EKG monitoring, Pulse oximetry, Carbon Dioxide monitoring and blood pressure monitoring were done throughout the procedure. Colon withdrawal time was 8 minutes. Procedure: The patient was placed in the left lateral decubitis position and pre-procedure medications were administered. After a digital rectal examination of the ano-rectum, the video colonoscope was inserted into the rectum and advanced through the colon to the cecum/TI. The colonoscope was slowly withdrawn in a retrograde panoramic fashion and the colon mucosa was carefully examined including a retroflexed view of the rectum. Findings and interventions are described below. Procedure Difficulty:moderate Findings: Terminal Ileum-normal Cecum:normal Ascending Colon: mild diverticulosis Transverse Colon -normal Descending Colon: x 1 sessile polyp 4-6 mm removed with cold forceps Sigmoid Colon: mild diverticulosis Rectum: Retroflexion with small internal hemorrhoids, grade I Anorectum - normal Colon preparation: [place] Bowel Preparation Scale Right colon; 2 Transverse colon: 2 Left colon; 2 (0 = Unprepared colon segment with mucosa not seen due to solid stool that cannot be cleared. 1 = Portion of mucosa of the colon segment seen, but other areas of the colon segment not well seen due to staining, residual stool and/or opaque liquid. 2 = Minor amount of residual staining, small fragments of stool and/or opaque liquid, but mucosa of colon segment seen well. 3 = Entire mucosa of colon segment seen well with no residual staining, small fragments of stool or opaque liquid) Impression and Post Procedure Diagnosis: Endoscopy Findings: schatzki ring hiatal hernia erosive gastritis duodenitis Colonoscopy Findings: diverticulosis colon polyp x 1 internal hemorrhoids Plan: Await Pathology results Repeat Colonoscopy in 5 years if adenoma, 10 yrs if hyperplastic and health allows or earlier if clinically indicated High fiber diet leaflet avoid straining at stool, epsom salts and sitz bath, anusol supps or cream low dose PPI Above findings were reviewed with the patient and relevant handouts were provided if indicated.
[2024-08-24 08:45] VITALS: BP 89/65; PULSE 84; RESP 16; TEMP 36.1
[2024-08-24 09:00] VITALS: BP 113/70; PULSE 71; RESP 18; TEMP 36.1; O2SAT 95
== END 2024-08-24 09:55 | disposition home or self-care (01) ==
PROVIDERS: PCP Internal Medicine; Visit Provider Internal Medicine Gastroenterology
PROC: (CPT 45380; principal; 2024-08-24 08:20)
DX: Z12.11 Encounter for screening for malignant neoplasm of colon (principal); D12.4 Benign neoplasm of descending colon; K57.30 Diverticulosis of large intestine without perforation or abscess without bleeding; K64.0 First degree hemorrhoids; K22.2 Esophageal obstruction; K44.9 Diaphragmatic hernia without obstruction or gangrene; K29.60 Other gastritis without bleeding; K29.80 Duodenitis without bleeding; R13.10 Dysphagia, unspecified; E78.00 Pure hypercholesterolemia, unspecified; E03.9 Hypothyroidism, unspecified; G47.33 Obstructive sleep apnea (adult) (pediatric); Z86.14 Personal history of Methicillin resistant Staphylococcus aureus infection; Z79.02 Long term (current) use of antithrombotics/antiplatelets; Z79.899 Other long term (current) drug therapy
CPT/HCPCS: 45380; 43249; 43239; 88305; 88313; 88342; C1726; J2003; J2704

== ENCOUNTER → 2024-08-24 06:45 | Outpatient (BNV) | payer MEDICARE, SELFPAY | PROVIDERS: PCP Internal Medicine; Visit Provider Internal Medicine Gastroenterology | DX: K22.2 Esophageal obstruction (principal); R13.10 Dysphagia, unspecified; K44.9 Diaphragmatic hernia without obstruction or gangrene; K29.90 Gastroduodenitis, unspecified, without bleeding; Z12.11 Encounter for screening for malignant neoplasm of colon; K63.5 Polyp of colon; K57.90 Diverticulosis of intestine, part unspecified, without perforation or abscess without bleeding; K64.8 Other hemorrhoids | CPT/HCPCS: 43239; 43249; 45380 ==

== ENCOUNTER 2024-10-26 13:38 | Outpatient (AMB) | payer MEDICARE, SELFPAY ==
--- NOTE | 2024-10-26 13:46 | A.OFFVIS_ITS ---
Vital Signs 10/26/24 13:51 Height 5 ft 10 in Weight 178 lb BMI 25.5 BP 108/78 Blood Pressure Location Rt brachial Position Sitting Pulse 78 Pulse Source Pulse Oximeter Pulse Oximetry (%) 97 Oxygen Delivery Method Room Air Intake Visit Reasons: Post op f/u Intake Note: Est pt for mgmt s/p colo. CC; C.O. AM sx persistence despite current therapy. Pt states his sx present in the nature of abd discomfort and mild nausea. Pt does report that the dysphagia has improved since prior to his procedure. [employer] Supervisor Required: No Accompanied by: Self / Same As Patient Allergies No Known Allergies Allergy (Verified 06/08/24 10:50) HPI HPI Post op f/u: Details: Assessment & Plan (1) Pre-op examination: Code(s): Z01.818 - Encounter for other preprocedural examination Category: Medical (2) Dysphagia: Code(s): R13.10 - Dysphagia, unspecified Category: Medical Plan: EGD 2016 without abnormal findings. Although, indications unclear. DDX reviewed:Inflammatory process VS vocal cord dysfunction VS esophageal narrowing/obstruction VS thyroid involvement. Advised barium swallow for further evaluation. We will also scheduled for endoscopy. Avoid triggers. He is agreeable to plan. Follow-up 8 weeks or sooner as needed. (3) DMITRI (obstructive sleep apnea): Code(s): G47.33 - Obstructive sleep apnea (adult) (pediatric) Category: Medical Plan: Follow up with ordering provider pending. (4) Hearing loss in right ear: Code(s): H91.91 - Unspecified hearing loss, right ear Category: Medical Plan: S/P initial cochlear implant placement. Plan (with Carline) Patient is a 73-year-old male who comes in today for dysphasia. Referred by PCP. He reports onset couple years ago with recent exacerbation in symptoms States the sensations is at the throat area. Shares symptoms primarily occur with solids, rice is the main culprit. Endorses trouble with cold liquids but rare-can tolerate shakes/smoothies without difficulty. States symptoms occur with approximately 30% of his meals. When asked about appetite changes he a decreased appetite with an approximate 5lb weight loss in the past month. Associated symptoms: Left side of throat tenderness to touch X 8-10 months, decreased in appetite X one month, hoarseness but rare Aggravating factors: As above Alleviating attempts: hydration, induced evacuation of food, slow chewing Patient denies: systemic symptoms, n/v or melena/hematochezia Chronic GERD, relieved with occasional OTC TUMS. Previously on PPI, off for years Cochlea implant placement one week ago. Prescribed opioids for pain, now with constipation. Otherwise with normal stools without bleeding. Reports tolerating anesthesia well known hemorrhoids. Stable Recent sleep study indicating severe sleep apnea , follow up pending to review CPAP needs. Off rosuvastatin X 6 months, secondary to muscles weakness to legs. Reports recent labs with stable results, including TSH and lipids. Did have benign thyroid biopsy decade ago Last colonoscopy 2016 at [facility]. EGD at the same time. He does not recall any concerning findings. Prefers that Dr. Tavarez completes endoscopy/colonoscopy Social hx: 1 drink approx 6x/year denies recreational drug use Non-smoker Denies personal CA hx Denies family hx of CA Per patient presented labs via PCP portal collected 06/01/24: Normal CMP, CBC, iron studies and ferritin TSH last collected 10/2023 and in normal range Time: I spent a total of 30 minutes on the date of encounter which includes: Preparing to see the patient (reviewed previous documentation, test results and medical history) Performing a medically appropriate exam and/or evaluation Ordering medications, tests, and procedures Documenting clinical information in the health record Orders: Orders FL barium swallow Today R13.10 - Dysphagia, unspecified EGD - GI Use Only Today TSH reflex Free T4 Today R13.10 - Dysphagia, unspecified Colonoscopy - GI Use Only Today Medications: New bisacodyl pre colonoscopy prep 5 mg PO ONCE 4 tabs 0RF simethicone (Gas Relief (simethicone)) per colonoscopy prep instructions 125 mg PO ONCE 4 caps 0RF abdominal distention peg 3350-electrolytes 236-22.74-6.74 -5.86 gram until fecal effluent is clear 240 mL PO Q10M 4,000 mL 0RF EGD/COLONOSCOPY 08/24/24 Findings: Larynx:normal Esophagus: GE junction at 40 cm, diaphragm hiatus at 43 cm, consistent with 3 cm sliding hiatal hernia with schatzki ring noted, balloon dilation done to 20 mm at LES and UES with tear noted in LES, bx taken from distal and proximal areas Stomach: mild erythema with few erosions. Biopsies were obtained. Grade 2 flap valve on retroflexed examination of the cardia. Duodenum: mild duodenitis, bx taken Findings: Terminal Ileum-normal Cecum:normal Ascending Colon: mild diverticulosis Transverse Colon -normal Descending Colon: x 1 sessile polyp 4-6 mm removed with cold forceps Sigmoid Colon: mild diverticulosis Rectum: Retroflexion with small internal hemorrhoids, grade I Anorectum - normal Impression and Post Procedure Diagnosis: Endoscopy Findings: schatzki ring hiatal hernia erosive gastritis duodenitis Colonoscopy Findings: diverticulosis colon polyp x 1 internal hemorrhoids Plan: Await Pathology results Repeat Colonoscopy in 5 years if adenoma, 10 yrs if hyperplastic and health allows or earlier if clinically indicated High fiber diet leaflet avoid straining at stool, epsom salts and sitz bath, anusol supps or cream low dose PPI eceived: 08/24/24 Diagnosis A. Duodenum, biopsy: Duodenal mucosa with predominantly preserved villi and mild changes of chronic/non-specific duodenitis. B. Stomach, biopsy: Gastric body and antral mucosa with minimal chronic inactive gastritis; negative for H.pylori, intestinal metaplasia and dysplasia. C. Esophagus, distal, biopsy: Squamous mucosa with no specific change; no columnar mucosa present. D. Esophagus, proximal, biopsy: Squamous mucosa with no specific change; no columnar mucosa present. E. Colon, descending, polyp: Tubular adenoma, completely excised; negative for high-grade dysplasia and carcinoma [facility] Medical History (Updated 10/26/24 @ 13:58 by BIENVENIDO Merino) External hemorrhoids Insomnia Hypothyroid Hearing loss in right ear DMITRI (obstructive sleep apnea) Dysphagia Surgical History History of esophagogastroduodenoscopy (EGD) H/O colonoscopy S/P ureteral reimplantation H/O shoulder surgery S/P trigger finger release H/O lymph node excision History of lumbar surgery S/P endoscopic carpal tunnel release Previous back surgery Family History Brother Coronary artery disease Heart disease Mother Heart disease Father Stroke Social History Alcohol intake: current Alcohol intake frequency: does not drink Patient Tobacco Use Status: Never used Tobacco Second Hand Smoke Exposure: No Review of Systems Const Denies fatigue, Denies fever(s), Denies night sweats, Denies poor appetite and Denies weight loss Eyes Details: glasses Reports requires corrective lenses ENT Reports Normal hearing present, Denies dental pain, Denies dysphagia, Denies hearing loss, Denies mouth pain, Denies odynophagia, Denies throat swelling, Denies tongue swelling and Reports other (Dentition adequate) Card Reports no additional complaints Resp Reports no additional complaints GI Details: A.m. queasiness Denies abdominal pain, Denies melena, Denies bloating, Denies hematochezia, Denies constipation, Denies GI cramping, Denies dysphagia, Denies excessive flatus, Denies early satiety, Denies heartburn, Denies diarrhea, Denies nausea, Denies odynophagia, Denies vomiting and Denies hematemesis Skin/Breast Denies pruritus, Denies lesions, Denies rash and Denies jaundice Neuro Reports Normal hearing present and Denies Abnormal speech present Endo Denies fatigue Aller/Immun Denies throat swelling and Denies tongue swelling Physical Exam Vital Signs: Last Vital Signs Pulse 78 10/26/24 13:51 BP 108/78 10/26/24 13:51 Pulse Ox 97 10/26/24 13:51 Oxygen Delivery Method Room Air 10/26/24 13:51 BMI result Body Mass Index 25.5 Const General: cooperative, no acute distress, well developed and well groomed Nutritional Appearance: average body habitus and well nourished Orientation/consciousness: oriented to person, oriented to place and oriented to time Limitations: No language barrier HEENT Head: Yes normocephalic and Yes atraumatic Eyes General: appearance normal, both eyes and all related structures Pupils: Equal, round and reactive pupils present Neck Neck: Yes normal visual inspection and Yes no lymphadenopathy Thyroid: Thyroid normal Resp Effort & Inspection: normal respiratory effort and able to speak in complete sentences Auscultation: clear to auscultation bilaterally Cardio Rate: regular rate Rhythm: regular rhythm Heart sounds: Normal, physiologic split S2 sound present Peripheral pulses: radial pulses present and posterior tibial pulses present GI Inspection: No distended and No Abdominal panniculus present Palpation (GI): Soft to palpation, nontender, no guarding, not rigid and No hepatosplenomegaly present Percussion: Yes normal to percussion Auscultation: normal bowel sounds Rectal Exam - Male: Yes deferred Skin General skin exam: no rashes or lesions noted, turgor normal, skin not dry, no jaundice, No spider nevi and no striae Rashes: no rashes Nails: normal Neuro General: oriented to person, oriented to place and oriented to time Cranial nerves: Yes Equal, round and reactive pupils present and Yes Normal hearing present Speech: No Abnormal speech present Extrem General: Yes normal to inspection, No clubbing, No cyanosis and No edema Psych Appearance: grossly normal and well kempt Mental Status: mental status grossly normal Speech and movement: Normal speech and movement present Affect: normal affect Attitude: cooperative Thought process: Normal thought process present and not confabulating Thought content: Normal thought content present Insight: Good insight present (Psych) Judgement: Good judgement present (Psych) Results Reviewed Results Reviewed: EGD/COLONOSCOPY 08/24/24 Findings: Larynx:normal Esophagus: GE junction at 40 cm, diaphragm hiatus at 43 cm, consistent with 3 cm sliding hiatal hernia with schatzki ring noted, balloon dilation done to 20 mm at LES and UES with tear noted in LES, bx taken from distal and proximal areas Stomach: mild erythema with few erosions. Biopsies were obtained. Grade 2 flap valve on retroflexed examination of the cardia. Duodenum: mild duodenitis, bx taken Findings: Terminal Ileum-normal Cecum:normal Ascending Colon: mild diverticulosis Transverse Colon -normal Descending Colon: x 1 sessile polyp 4-6 mm removed with cold forceps Sigmoid Colon: mild diverticulosis Rectum: Retroflexion with small internal hemorrhoids, grade I Anorectum - normal Impression and Post Procedure Diagnosis: Endoscopy Findings: schatzki ring hiatal hernia erosive gastritis duodenitis Colonoscopy Findings: diverticulosis colon polyp x 1 internal hemorrhoids Plan: Await Pathology results Repeat Colonoscopy in 5 years if adenoma, 10 yrs if hyperplastic and health allows or earlier if clinically indicated High fiber diet leaflet avoid straining at stool, epsom salts and sitz bath, anusol supps or cream low dose PPI eceived: 08/24/24 Diagnosis A. Duodenum, biopsy: Duodenal mucosa with predominantly preserved villi and mild changes of chronic/non-specific duodenitis. B. Stomach, biopsy: Gastric body and antral mucosa with minimal chronic inactive gastritis; negative for H.pylori, intestinal metaplasia and dysplasia. C. Esophagus, distal, biopsy: Squamous mucosa with no specific change; no columnar mucosa present. D. Esophagus, proximal, biopsy: Squamous mucosa with no specific change; no columnar mucosa present. E. Colon, descending, polyp: Tubular adenoma, completely excised; negative for high-grade dysplasia and carcinoma Assessment & Plan Assessment & Plan (1) Dysphagia: Comment: improved 80% s/p dilation Code(s): R13.10 - Dysphagia, unspecified Category: Medical (2) Peptic ulcer disease: Comment: erosions in stomach on EGD 09/2024 Code(s): K27.9 - Peptic ulcer, site unspecified, unspecified as acute or chronic, without hemorrhage or perforation Category: Medical Plan - The patient is a 74-year-old male presenting with difficulty swallowing and gastric discomfort. - Post-endoscopy, his dysphagia has improved after esophageal dilation addressing the detected Schatzki's ring. - He previously experienced food impaction episodes, which have ceased following the procedure. He has a different problem with liquids causing near aspiration but notes that it tends to happen when he is trying to drink quickly. - Despite taking pantoprazole, he continues to have morning gastric queasiness, which does not improve significantly post-medication. - The queasiness abates after urination and eases roughly an hour later. - He recalls his stomach sensations similar to past peptic ulcer pain. - Following an assessment, its results indicated the presence of a sliding hiatal hernia and mild gastric erosions. - Additionally, a colonoscopy revealed a real polyp and mild diverticulosis, and internal hemorrhoids, requiring surveillant colonoscopy in five years pending health status. - Though the presence of a hiatal hernia is acknowledged, he reports no severe associated pains. - Gastric discomfort symptoms persist with a queasy feeling not significantly alleviated by pantoprazole. - Continue pantoprazole 40 mg each morning. - Add famotidine at night to alleviate morning acid discomfort. - Lifelong acid reduction therapy advised due to sliding hiatal hernia to manage symptoms and mitigate further complications. - Possible future dilation if dysphagia re-emerges. - Follow-up in 6-8 weeks to assess response to current treatments. - Plan surveillance colonoscopy in five years to monitor and prevent colon issues. The procedure was well tolerated. The results were explained and the patient is agreeable to the follow-up interval as stated. The bowel pattern has returned to normal. Education was provided to tell any 1st degree relatives about their findings to be sure that they are screened by age 45. Educated that they will be put on a recall list when it is time for their repeat scope but should they move out of state or away from the hospital they will need to remember along with their primary to repeat the procedure in a timely fashion to avoid any adverse complications. A great deal of time of was spent explaining to him the pathophysiology of losing our ability to make the mucosal layer to protect the stomach over time with age and how this can lead to ulcer disease. He also likely needs lifelong PPI therapy so as not to develop another stricture that we will need read dilation or to do develop Barretts esophagus which could lead to esophageal cancer. We episode of mild aspiration when drinking too quickly is likely related to a slow down of the neurological coordination with aging and no other severe pathology. He agrees that this only tends to happen when he is rushing and only with thin liquids. Patient was informed and verbally consented to the use of an ambient scribe for clinic note documentation during this visit. Return office visit in 8 weeks Medications: New famotidine (Pepcid) 40 mg PO BEDTIME 30 tabs 6RF Coding Level of Care Code Est Pt Level 4 (56015) Diagnoses Dysphagia R13.10 Peptic ulcer disease K27.9 Time Spent (min) 40
--- OUTSIDE RECORDS SUMMARY | 2024-10-26 13:48 | XMS_ITS | Encounter Summary ---
Author Organization [facility] Address [address] [place] [address] Care Team Providers Care Blade Grader Operator Name Role Phone GretnaCruzito Primary Care Provider [phone] Reason for Visit * Reason Onset Date Comments PAC- Edgardo-telehealth appt 06/23/2022 Encounter Details Date Type Department Care Team (Late st Contact Info) Description 06/23/2022 Telephone [facility] [address] [place] [id number] Telephone Intake, Staff PAC- Edgardo-telehealth appt Social History Tobacco Use Types Packs/Day Years Used Date Smoking Tobacco: Never Smokeless Tobacco: Never Alcohol Use Standard Drinks/Week Comments Never 0 (1 standard drink = 0.6 oz pur e alcohol) Comments Unknown Sex and Gender Information Value Date Recorded Sex Assigned at I choose not to answer 08/2024 11:35 AM EDT Legal Sex Male 5:04 AM EDT Gender Identity Not on file Sexual Orientation Not on file documented as of this encounter Miscellaneous Notes * Telephone Encounter - Carmencita Mike - 06/23/2022 4:41 PM EDT Pt has appt scheduled with Dr reynoso for tomorrow 06/24 @ 345 for a MRI follow up and he would like to know if this can be changed to a telehealth appt if possible. Please reach out to patient [phone] documented in this encounter Plan of Treatment Upcoming Encounters Date Type Department Care Team (Late st Contact Info) Description 11/20/2024 1:45 PM EDT Follow-Up [facility] [address] [place] [address] Danny Reynoso MD [address] [place] [address] documented as of this encounter Visit Diagnoses Not on filedocumented in this encounter Care Teams Blade Grader Operator Relationship Specialty Start Date End Date Cruzito Cannon [facility] Internal Medicine [address] [place] [id number] PCP - General Internal Medicine 04/06/22 documented as of this encounter
--- OUTSIDE RECORDS SUMMARY | 2024-10-26 13:49 | XMS_ITS | Encounter Summary ---
Author Organization [facility] Address [address] [place] [phone] Phone Care Team Providers Care Substation Inspector Name Role Phone Cruzito Cannon MD Primary Care Provider [phone] Juan Pablo Andres MD Unavailable Enrique Kerr MD Unavailable [phone] Albert Headley MD Unavailable Encounter Details Date Type Department Care Team (Late Contact Info) Description 12/16/2018 Procedure Pass [facility] [address] [place] [id number] Social History Tobacco Use Types Packs/Day Years Used Date Smoking Tobacco: Never Smokeless Tobacco: Never Alcohol Use Standard Drinks/Week Comments Yes 0 (1 standard drink = 0.6 oz pur e alcohol) 3 drinks a year maybe Sex and Gender Information Value Date Recorded Sex Assigned at Not on file Legal Sex Male 5:32 PM EST Gender Identity Not on file Sexual Orientation Not on file documented as of this encounter Plan of Treatment Upcoming Encounters Date Type Department Care Team (Late Contact Info) Description 11/08/2024 10:30 AM EDT Office Visit [facility] Internal Medicine [address] [place], [place] [phone] Cruzito Cannon MD [address] [place], [place] [phone] [email or web address] documented as of this encounter Visit Diagnoses Not on filedocumented in this encounter Additional Health Concerns Infection Onset Date Last Indicated Resolved Time CoV-Risk 02/15/2020 02/16/2020 02/29/2020 1:26 AM EST CoV-Risk 11/14/2020 11/14/2020 11/24/2020 1:22 AM EDT CoV-Risk Comment:Per Ambulatory Triage Form 06/16/2021 06/20/202107/01 1:22 AM EDT CoV-Presumed 01/07/2022 01/07/2022 01/28/2022 8:50 AM EST CoV-Risk 01/27/2022 01/27/2022 02/07/2022 1:21 AM EST 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 07/01/2022 06/30/2024 1:21 AM EDT Assessment Noted Time PHQ-2 Depression Total Score: 0 05/10/19 19 10:11 AM EST documented as of this encounter Care Teams Substation Inspector Relationship Specialty Start Date End Date Cruzito Cannon MD [address] [place] [phone] [email or web address] PCP - General Internal Medicine 02/05/17 Juan Pablo Andres MD [address] [place] [phone] Physical Medicine and Rehabilitation 02/06/20 Enrique Kerr MD [address] [place] [phone] Otolaryngology 02/21/20 Albert Headley MD [address] [place], [place] [address] [address] Cardiology 03/22/20 documented as of this encounter Additional Source Comments The information contained in this document represents components of the legal health record. It is not the complete legal health record.[facility]
--- OUTSIDE RECORDS SUMMARY | 2024-10-26 13:49 | XMS_ITS | Patient Health Record ---
Author Organization [facility] Address [address] [place] [phone] Care Team Providers Care Event Representative Name Role Phone Ever Mark Jr Reason For Referral No Information Plan Of Treatment No Information
[2024-10-26 13:51] VITALS: BP 108/78; PULSE 78; O2SAT 97; BMI 25.5
== END 2024-10-26 14:18 | disposition home or self-care (01) ==
LOC: HO.HGI 13:38
PROVIDERS: PCP Nurse Practitioner Family; Visit Provider Nurse Practitioner
DX: R13.10 Dysphagia, unspecified (principal); K27.9 Peptic ulcer, site unspecified, unspecified as acute or chronic, without hemorrhage or perforation
CPT/HCPCS: 99214

== ENCOUNTER → 2024-10-26 13:38 | Outpatient (BNVA) | payer MEDICARE, SELFPAY | PROVIDERS: PCP Nurse Practitioner Family; Visit Provider Nurse Practitioner | DX: R13.10 Dysphagia, unspecified (principal); Q39.4 Esophageal web; K44.9 Diaphragmatic hernia without obstruction or gangrene; K27.9 Peptic ulcer, site unspecified, unspecified as acute or chronic, without hemorrhage or perforation; K21.9 Gastro-esophageal reflux disease without esophagitis; Z79.899 Other long term (current) drug therapy; Z98.890 Other specified postprocedural states | CPT/HCPCS: 99212 ==

== ENCOUNTER 2024-11-14 08:15 | Outpatient (REF) | payer MEDICARE, SELFPAY ==
--- NOTE | ~2024-11-14 | FL_ITS ---
EXAMINATION: XR BARIUM SWALLOW CLINICAL INFORMATION: Trouble swallowing solids. Previous history of endoscopy with esophageal dilation. COMPARISON: None available. TECHNIQUE: Upright barium swallow was performed with thick barium and saltine crackers with barium paste. Thin barium was administered in prone lying position. FINDINGS: On oral administration of thick barium there is normal perfusion bolus from the oral cavity through the pharynx, esophagus into stomach without obstruction, narrowing or stricture. No laryngeal penetration and aspiration seen. No retention of barium in the valleculae or piriform sinuses. On oral administration of ran crackers with barium paste there is normal oral mastication and propagation of bolus from the oral cavity through the pharynx, esophagus into stomach without obstruction or narrowing. On oral administration of thin barium in prone lying position there is good distention of esophagus without any intraluminal filling defect, narrowing or stricture. A small sliding hiatal hernia is suspected. No reflux seen. FLUOROSCOPY TIME: 2 minutes 14 seconds DOSE AREA PRODUCT: 1056 uGy-m2 (microgray-meter squared) FL/FL barium swallow IMPRESSION: There is no esophageal narrowing or stricture seen at this time. There is a small sliding hiatal hernia without reflux. Electronically signed by: Daquan Singh MD 11/14/2024 10:03 AM EDT
--- OUTSIDE RECORDS SUMMARY | 2024-11-14 09:07 | XMS_ITS | Patient Health Record ---
Author Organization [facility] Address [address] [place] [phone] Care Team Providers Care Oracle Applications Developer Name Role Phone Ever Mark Jr Reason For Referral No Information Plan Of Treatment No Information
--- OUTSIDE RECORDS SUMMARY | 2024-11-14 09:07 | XMS_ITS | Encounter Summary ---
Author Organization [facility] Address [address] [place] [phone] Phone Care Team Providers Care Manager Statistics Name Role Phone Cruzito Cannon MD Primary Care Provider Juan Pablo Andres MD Unavailable Enrique Kerr MD Unavailable Albert Headley MD Unavailable Encounter Details Date Type Department Care Team (Latest Contact Info) Description 09/29/2024 Ancillary Orders [facility] [address] [place], [place] [phone] Lynsey Alanis, MANAGER [employer] [address] [place], [place] [phone] [email or web address] Jaw pain (Primary Dx) Social History Tobacco Use Types Packs/Day Years Used Date Smoking Tobacco: Never Smokeless Tobacco: Never Alcohol Use Standard Drinks/Week Comments Not Currently 0 (1 standard drink = 0.6 oz pur e alcohol) Education Answer Date Recorded Are you interested in more education? Not on linh e 07/02/2022 Are you concerned about learning? Not on file 07/02/2022 No 07/02/2022 No 07/02/2022 Digital Access Answer Date Recorded No 08/02/2022 No 08/02/2022 Reliable internet access at home? Not on file 08/02/2022 Device with a working camera? Not on file Intimate Partner Violence Answer Date R ecorded Denied Basic Needs Not on file 07/14/2024 In the past 12 months have y ou been in a relationship with a person who hurts, threatens, or tries to control you? No 07/14/2024 Worried food would run out Not on file 07/14 In the past 12 months have y ou been in a relationship with a person who hurts, threatens, or tries to control you? No 07/14/2024 Sex and Gender Information Value Date Recorded Sex Assigned at Not on file Legal Sex Male 5:32 PM EST Gender Identity Not on file Sexual Orientation Not on file documented as of this encounter Plan of Treatment Upcoming Encounters Date Type Department Care Team (Late st Contact Info) Description 02/16/2025 10:30 AM EST Office Visit [facility] Internal Medicine [address] [place] [address] Cruzito Cannon MD [address] [place] [address] 07/18/2025 10:00 AM EDT Office Visit [facility] Internal Medicine [address] [place] [address] Cruzito Cannon MD [address] [place] [phone] documented as of this encounter Results * XR Temporomandibular Joint (Bilateral) (09/29/2024 10:57 AM EDT) Anatomical Region Laterality Modality Face Computed Radiogr aphy 09/29/2024 1:55 PM EDT Impressions 09/29/2024 6:05 PM EDT No definite temporomandibular dislocation. Consider CT or MRI for further evaluation of TMJ pathology. Narrative 09/29/2024 6:05 PM EDT XR TEMPOROMANDIBULAR JOINT (BILATERAL) Referring clinician's provided indication for this examination in [facility]: TMJ pain or limited movement; right TMJ pain COMPARISON: None FINDINGS: No definite temporomandibular dislocation. No displaced fracture. Metallic dental hardware. Right-sided cochlear implant. Procedure Note Priscilla Gilman MD - 09/29/2024 XR TEMPOROMANDIBULAR JOINT (BILATERAL) Referring clinician's provided indication for this examination in Epic:TMJ pain or limited movement; right TMJ pain COMPARISON: None FINDINGS: No definite temporomandibular dislocation. No displaced fracture.Metallic dental hardware. Right-sided cochlear implant. IMPRESSION: No definite temporomandibular dislocation. Consider CT or MRI for furtherevaluation of TMJ pathology. Lynsey Alanis MANAGER [employer] IMG XR HEAD AND SHUNT SERIES Final Result documented in this encounter Visit Diagnoses Diagnosis Jaw pain Jaw pain- Primary documented in this encounter Additional Health Concerns Assessment Noted Time PHQ-2 Depression Total Score: 0 07/15/19 25 9:47 AM EDT documented as of this encounter Care Teams Manager Statistics Relationship Specialty Start Date End Date Cruzito Cannon MD [address] [place] [address] [email or web address] PCP - General Internal Medicine 02/05/17 Juan Pablo Andres MD [address] [place] [address] Physical Medicine and Rehabilitation 02/06/20 Enrique Kerr MD [address] [place] [address] [email or web address] 02/21/20 Albert Headley MD [address] [facility] [address] [place] [address] Cardiology 03/22/20 documented as of this encounter Additional Source Comments The information contained in this document represents components of the legal health record. It is not the complete legal health record.[facility]
--- OUTSIDE RECORDS SUMMARY | 2024-11-14 09:07 | XMS_ITS | Encounter Summary ---
Author Organization [facility] Address [address] [place] [address] Phone Care Team Providers Care Terrazzo Grinder Name Role Phone Cruzito Cannon MD Primary Care Provider Juan Pablo Andres MD Unavailable Enrique Kerr MD Unavailable Albert Headley MD Unavailable Encounter Details Date Type Department Care Team (Late st Contact Info) Description 02/05/2021 Procedure Pass [facility], Ct Scan - [address] [phone] Social History Tobacco Use Types Packs/Day Years [...] Description 02/16/2025 10:30 AM EST Office Visit [facility] Internal Medicine [address] [place], [place] [phone] Cruzito Cannon MD [address] [place], [place] [phone] [email or web address] 07/18/2025 10:00 AM EDT Office Visit [facility] Internal Medicine [address] [place], [place] [phone] Cruzito Cannon MD [address] [place], [place] [phone] [email or web address] documented as of this encounter Visit Diagnoses Not on filedocumented in this encounter Additional Health Concerns Infection Onset Date Last Indicated Resolved Time CoV-Risk Comment:Per Ambulatory Triage Form 06/16/2021 06/20/202107/01 1:22 AM EDT CoV-Presumed 01/07/2022 01/07/2022 01/28/2022 8:50 AM EST CoV-Risk 01/27/2022 01/27/2022 02/07/2022 1:21 AM EST 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 07/01/2022 06/30/2024 1:21 AM EDT Assessment Noted Time PHQ-2 Depression Total Score: 0 12/25/19 21 2:31 PM EDT documented as of this encounter Care Teams Terrazzo Grinder Relationship Specialty Start Date End Date Cruzito Cannon MD [address] [place] [address] [email or web address] PCP - General Internal Medicine 02/05/17 Juan Pablo Andres MD [address] [place] [phone] Physical Medicine and Rehabilitation 02/06/20 Enrique Kerr MD [facility] [address] [address] [email or web address] Otolaryngology 02/21/20 Albert Headley MD [address] [facility] [address] [place] [address] Cardiology 03/22/20 documented as of this encounter Additional Source Comments The information contained in this document represents components of the legal health record. It is not the complete legal health record.[facility]
--- OUTSIDE RECORDS SUMMARY | 2024-11-14 09:07 | XMS_ITS | Clinical Summary ---
Author Organization [facility] Address [address] [place] [address] Care Team Providers Care Records Management Assistant Name Role Phone [email or web address] Primary Care Provider [phone] Allergies Active Allergy Reactions Criticality Noted Date Comments Alfuzosin Other (see comments) 01/07/2022 Nauseau, spacy and felt sick Atorvastatin Other (see comments) 05/20/2020 Stomach upset and headaches nauseau Constipated . Gabapentin Other (see comments) 12/24/2020 [facility] Hydrochlorothiazide Other (see comments) 2016 [facility] Hydromorphone Other (see comments) 03/31/2021 Made headache worse Nortriptyline Other (see comments) 02/05/2017 [facility] Medications albuterol (PROAIR HFA,VENTOLIN HFA) 90 [...] 04/08/2022 10:34 AM EST Plan of Treatment Upcoming Encounters Date Type Department Care Team (Late st Contact Info) Description 11/20/2024 1:45 PM EDT Follow-Up [facility] [address] [place] [address] Danny Reynoso MD [address] [place] [address] Health Maintenance Due Date Last Done Comments Cologuard 1950 Colon Cancer Screening 1950 Colonoscopy 1950 FOBT / Fit Test 1952 Hepatitis C Screening 1950 Sigmoidoscopy 1950 Medicare AWV 1951 Zoster Vaccines (1 of 2) 2002 Alcohol/Substance Use Screening 03/08/2024 Depression Screening and Follow-Up 03/08/2024 Health Care Proxy Review 03/08/2024 Social Drivers of Health Annual Screening 03/08/2024 COVID-19 Vaccine ( season) 2024 01/15/2021, 06/22/2020, 06/01/2020 Influenza Vaccine (#1) 2024 , 12/07/2019, 03/11/2018, Additional history exists DTaP,Tdap,and Td Vaccines (2 - Td or Tdap) 12/01/2025 12/02/2015, 03/08/2002 RSV Vaccine (60+ years old and patients) (1 - 1-dose 75+ series) 06/21/2027 Pneumococcal Vaccine: 50+ Years Completed 02/20/2020, 03/11/2018 Hepatitis B Vaccines Aged Out No long er eligible based on patient's age to complete this topic Insurance [facility] MEDICARE Care Teams Records Management Assistant Relationship Specialty Start Date End Date Cruzito Cannon [facility] Internal Medicine [address] [place] [address] PCP - General Internal Medicine 04/06/22
--- OUTSIDE RECORDS SUMMARY | 2024-11-14 09:07 | XMS_ITS | Encounter Summary ---
Author Organization [facility] Address [address] [place] [address] Phone Care Team Providers Care Rolled Glass Crosscutter Name Role Phone Cruzito Cannon MD Primary Care Provider Juan Pablo Andres MD Unavailable [phone] Enrique Kerr MD Unavailable Albert Headley MD Unavailable Encounter Details Date Type Department Care Team (Late Contact Info) Description 12/16/2018 Procedure Pass [facility] [address] [place] [phone] Social History Tobacco Use Types Packs/Day Years [...] Department Care Team (Late Contact Info) Description 02/16/2025 10:30 AM EST Office Visit [facility] Internal Medicine [address] [place], [place] [phone] Cruzito Cannon MD [address] [place], [place] [phone] 07/18/2025 10:00 AM EDT Office Visit [facility] Internal Medicine [address] [place] [address] Cruzito Cannon MD [address] [place] [address] documented as of this encounter Visit Diagnoses [...] documented as of this encounter Care Teams Rolled Glass Crosscutter Relationship Specialty Start Date End Date Cruzito Cannon MD [address] [place] [address] PCP - General Internal Medicine 02/05/17 Juan Pablo Andres MD [address] [place] [address] Physical Medicine and Rehabilitation 02/06/20 Enrique Kerr MD [address] [place] [address] [email or web address] Otolaryngology 02/21/20 Albert Headley MD 100 [facility] 100 [place] [address] Cardiology 03/22/20 documented as of this encounter Additional Source Comments The information contained in this document represents components of the legal health record. It is not the complete legal health record.[facility]
--- OUTSIDE RECORDS SUMMARY | 2024-11-14 09:07 | XMS_ITS | Clinical Summary ---
Author Organization [facility] Address [address] [place] [address] Phone Care Team Providers Care Relocation Counselor Name Role Phone Cruzito Cannon MD Primary Care Provider [phone] Juan Pablo Andres MD Unavailable Enrique Kerr MD Unavailable Albert Headley MD Unavailable Allergies Active Allergy Reactions Criticality Noted Date Comments Atorvastatin Other (See Comments) 05/20/2020 Stomach upset and headaches nauseau Constipated . Codeine Nausea And Vomiting 03/21/2020 Hydromorphone Other (See Comments) 03/31/2021 Made headache worse Doxycycline 03/21/2020 Other Reaction(s): OTHER Flu-like symptoms Gabapentin Other (See Comments) 08/06/2022 [place] Hydrochlorothiazide Other (See Comments) 02/05/2017 [place] Meloxicam Diarrhea Medium 02/09/2023 And upset stomach Nortriptyline Other (See Comments) 02/05/2017 [place] Omeprazole Headaches,Pain Low 03/14/2024 Pain in abdomen Other Nausea and/or Vomiting 02/05/2017 Narcotic-felt flushed also Other Reaction(s): Seasonal allergic rhinitis Sulfamethoxazole-Trimethopr im Other (See Comments) 06/27/2024 Other Reaction(s): Hot flushes, other Bactrim Alfuzosin Other (See Comments) 01/07/2022 Nauseau, spacy and felt sick Medications Medication-Free Text Take 1 capsule by mouth daily. K2 recommended by bag loader Active multivitamins capsule Take 1 capsule by mouth as needed. Pure O.N.E brand With CoQ10 Active LORazepam (ATIVAN) 1 MG tablet Take 0.5 tablets by mouth nightly at bedtime as needed (for restless legs). 01/15/20 23 Active ibuprofen (ADVIL,MOTRIN) 200 MG tablet Take 800 mg by mouth 2 (two) times a week. Up to three times weekly Active oxyCODONE HCl 10 mg TabIndications:Inc reased frequency of headaches,Cervical una,Neck pain Take 1 tablet (10 mg total) by mouth every 6 (six) hours as needed. Partial fill ok 30 tablet 04/06/19 25 Active Additional Information Patient not taking.Reported on 11/08/2024 albuterol 90 mcg/actuation inhalerIndications :Acute non-recurrent maxillary sinusitis,Acute bronchospasm Inhale 2 puffs into the lungs every 6 (six) hours as needed for wheezing. 8 g 1 06/28/19 25 Active fluticasone propionate (FLONASE) 50 mcg/actuation nasal sprayIndications:A llergic rhinitis, unspecified seasonality, unspecified trigger 2 sprays by Nasal route daily. 16 g 12 06/28/19 25 Active LEVOXYL 75 mcg tabletIndications: Acquired hypothyroidism TAKE ONE TABLET BY MOUTH EVERY MORNING 90 tablet 1 09/26/19 25 Active pantoprazole (PROTONIX) 20 MG tablet Take 20 mg by mouth every morning. 08/25/19 25 Active famotidine (PEPCID) 40 MG tablet Take 40 mg by mouth every evening. 10/27/19 25 Active oxyCODONE HCl 10 mg TabIndications:Cer vicalgia Take 1 tablet (10 mg total) by mouth every 6 (six) hours as needed (neck pain). 28 tablet 11/09/19 25 Active rosuvastatin (CRESTOR) 5 MG tabletIndications: ASCVD (arteriosclerotic cardiovascular disease) Take 1 tablet (5 mg total) by mouth daily. 90 tablet 3 11/09/19 25 Active oxyCODONE HCl 10 mg TabIndications:Cer vicalgia TAKE ONE TABLET BY MOUTH EVERY 6 HOURS NEEDED 28 tablet 09/08/19 25 025 Discontin ued(Reord er) rosuvastatin (CRESTOR) 5 MG tablet Take 5 mg by mouth daily. 05/26/19 25 025 Discontin ued(Reord er) Active Problems Problem Noted Date Diagnosed Date Jaw pain 09/28/2024 Assessment & Plan (09/28/2024 9:58 PM EDT): Xray tomorrow, per patient's schedule Try heat or ice this evening. Continue soft foods No exercises/massage/stretch until xrays back. Plan treatment/referral thereafter Try to make dentist follow up appt. Weakness 07/14/2023 Assessment & Plan (07/14/2023 1:14 PM EDT): Weakness of the quadriceps bilateral thought to be due to statin reaction over time. CPK is elevated. Agree with PCP to hold Crestor for 4 weeks and then follow-up with PCP, at that point consider repeating CPK and inflammatory markers. If symptoms dissipate the patient might be considered for cardiology consultation to be evaluated for Praluent. Inflammation of hand joint 07/14/2023 Assessment & Plan (07/14/2023 1:12 PM EDT): Inflammation within the hand that the patient is experiencing prompted the CRP, CBC and sed rate to be obtained. If it is however elevated that still does not factor in what is causing the inflammation. Patient did have previous positive IMTIAZ however it was just mildly positive with no corroborating markers. Progression of inflammation however would prompt a rheumatology consult. Herpes zoster without complication 03/09/2023 Assessment & Plan (03/09/2023 4:21 PM EST): Zoster C4 dermatome left-sided, even though it might be too late trial of Valtrex to minimize extent of damage, for postherpetic neuralgia that seems to be developing treat with lidocaine 5% patch alternative would be IcyHot lidocaine if insurance does not cover. Patient should pursue in the pharmacy [facility] in September. Looking through his history I could not find contraindication for the vaccine. Post herpetic neuralgia 03/09/2023 Primary osteoarthritis of both hands 10/26/2019 Positive IMTIAZ (antinuclear antibody) 10/26/2019 Trigger ring finger of right hand 10/19/2019 Trigger middle finger of right hand 10/17/2019 Degenerative disc disease, cervical 10/17/2019 Degenerative disc disease, lumbar 10/17/2019 Pain in both hands 10/17/2019 Acute upper respiratory infection 01/27/2019 Assessment & Plan (01/27/2019 10:43 AM EST): Persisting cold symptoms most likely viral with a little bit of redness at the back of the throat, obtain beta strep culture and if positive treat with Augmentin otherwise supportive care with Cold-Eeze lozenges, increase vitamin C, increase fluids, guaifenesi advisement Meniere's disease 03/11/2018 Acute right-sided low back pain with right-sided sciatica 02/07/2017 Weakness of right lower extremity 02/07/2017 Upper back pain 02/07/2017 Acquired hypothyroidism 02/05/2017 Chronic tension-type headache, not intractable 1 04/08/2016 External hemorrhoids 02/05/2017 Right foot drop 02/05/2017 Gastritis without bleeding 02/05/2017 Hesitancy 02/05/2017 Obstructive sleep apnea syndrome 02/05/2017 Pure hypercholesterolemia 02/05/2017 Tinnitus 02/05/2017 Vertigo 02/05/2017 Encounters Date Type Department Care Team Description 11/08/2024 10:30 AM EDT Office Visit [facility] Internal Medicine [address] [place] [address] Cruzito Cannon MD ASCVD (arteriosclerotic cardiovascular disease) (Primary Dx); Cervicalgia; Increased frequency of headaches; Neck pain; Pure hypercholesterolemia; Hypothyroidism, unspecified type; Impaired fasting blood sugar 09/29/2024 10:18 AM EDT - 09/29/2024 11:59 PM EDT Hospital Encounter [facility], X-Ray - [address] [place] [address] Lynsey Alanis, LISA Discharge Disposition: Home or Self Care 09/29/2024 Ancillary Orders [facility] Internal Medicine [address] [place] [address] Lynsey Alanis, LISA Jaw pain (Primary Dx) 09/28/2024 1:00 PM EDT Office Visit [facility] Internal Medicine [address] [place] [address] Lynsey Alanis, HOME CARE PHYSICAL THERAPIST Jaw pain (Primary Dx) 09/25/2024 Telephone [facility] Internal Medicine [address] [place] [address] Cruzito Cannon MD Jaw Pain 09/24/2024 Refill [facility] Internal Medicine [address] [facility] [address] Cruzito Cannon MD Medication Refill 09/06/2024 Refill [facility] Internal Medicine [address] [place] [address] Cruzito Cannon MD Medication Refill from Last 3 Months Immunizations Immunization Administration Dates Next Due COVID-19 (Pre-12/28) Moderna Vaccine, mRNA, PF 1 03/17/2020 COVID-19 (Pre-12/28) Pfizer Vaccine, mRNA, PF ,06/01/2020 Influenza High-Dose Quadrivalent Preservative Fr ee IM 12/24/2020 Influenza High-Dose Trivalent Preservative Free IM 03/11/2018 Influenza Quadrivalent Preservative Free IM 11/05/2014 Influenza Recombinant Jimmie valent Preservative Free IM 12/07/2019 Pneumococcal conjugate PCV13 03/11/2018 Pneumococcal polysaccharide PPSV23 02/20/2020 Td (adult) 5 Lf Tetanus Toxoid, PF, Adsorbed 03/2002 Tdap 12/02/2015 Family History Medical History Relation Comments Coronary artery disease Brother 1 Coronary artery disease Brother 2 Stroke Father Anemia Mother Heart disease Mother Heart failure Mother Hypertension Sister Relation Status Comments Brother 1 Alive cardiovascular d iseaseh/o bypass Brother 2 Alive cardiovascular d iseasestents placed Father Mother Sister Alive Social History Tobacco Use Types Packs/Day Years Used Date Smoking Tobacco: Never Smokeless Tobacco: Never Tobacco Cessation:Counseling Given: Not Answered Alcohol Use Standard Drinks/Week Comments Not Currently [...] Sign Reading Time Taken Comments Blood Pressure 110/77 11/08/2024 11:01 AM EDT Pulse 59 11/08/2024 11:01 AM EDT Temperature 35.7 C (96.2 F) 11/08/2024 11:01 AM EDT Respiratory Rate 16 09/28/2024 1:14 PM EDT Oxygen Saturation 98% 11/08/2024 11:01 AM EDT Inhaled Oxygen Concentration - - Weight 82.7 kg (182 lb 6.4 oz) 11/08/2024 11:01 AM EDT Height 179 cm (5' 10.47 ) 11/08/2024 11:01 AM ED T Body Mass Index 25.82 11/08/2024 11:01 AM EDT Plan of Treatment Upcoming Encounters Date Type Department Care Team (Late st Contact Info) Description 02/16/2025 10:30 AM EST Office Visit [facility] Internal Medicine [address] [facility] [place] [address] Cruzito Cannon MD [address] [place] [address] [email or web address] 07/18/2025 10:00 AM EDT Office Visit [facility] [address] [place] [address] Cruzito Cannon MD [address] [place] [address] [email or web address] Health Maintenance Due Date Last Done Comments COLOGUARD 1997 FIT TEST 1997 FOBT 1997 SIGMOIDOSCOPY 1997 VIRTUAL COLONOSCOPY 1997 ZOSTER VACCINES (1 of 2) 2002 INFLUENZA VACCINE (#1) 2024 , 12/07/2019, 03/11/2018, Additional history exists COVID-19 VACCINE ( season) 2024 01/15/2021, 06/22/2020, 06/01/2020 COLONOSCOPY 03/14/2025 03/14/2015 COLORECTAL CANCER SCREENING 03/14/2025 TSH LEVEL 06/08/2025 06/08/2024, 08/0 11/2023, 05/21/2023, Additional history exists DEPRESSION SCREENING 07/14/2025 07/14/2024 Adult Td,Tdap Booster 12/01/2025 12/02/2015, 003 RSV VACCINE (1 - 1-dose 75+ series) 06/21/2027 LIPID PANEL 06/01/2029 06/01/2024, 12/06, 10/15/2023, Additional history exists HEPATITIS C SCREENING Completed 07/21/2019 PNEUMOCOCCAL VACCINES (50+ years) Completed 02/20/2020, 03/11/2018 SMOKING STATUS SCREENING (Once After 26 Yrs) Completed 11/08/2024 HEPATITIS A VACCINES Aged Out No long er eligible based on patient's age to complete this topic HIB VACCINES Aged Out No longer eligi ble based on patient's age to complete this topic MENINGOCOCCAL VACCINES (ACWY) Aged Out No longer eligible based on patient's age to complete this topic MENINGOCOCCAL VACCINES (B) Aged Out N o longer eligible based on patient's age to complete this topic Medical Devices Implanted Type Area Speech Communication Instructor Device Identifier Shelf Expiration Date Model / Serial / Lot Cochlear Implant Procedures Procedure Name Priority Date/Time Associated Diagnosis Comments XR TEMPOROMANDIBULAR JOINT (BILATERAL) Routine 09/29/2024 10:57 AM EDT Jaw pain OUTSIDE TSH LEVEL Routine 06/08/2024 LIPID PANEL Routine 06/01/2024 10:16 AM EDT Pure hypercholesterolemia OUTSIDE HEPATITIS C VIRUS SCREENING Routine 07/21/2019 HM COLONOSCOPY FOR RESULT ENTRY ONLY Routine 03/14/2015 from Last 3 Months or Most Recently Relevant to Health Maintenance Results * XR Temporomandibular Joint (Bilateral) (09/29/2024 10:57 AM EDT) Anatomical Region Laterality Modality Face Computed Radiogr aphy 09/29/2024 1:55 PM EDT Impressions 09/29/2024 6:05 PM EDT No definite temporomandibular dislocation. Consider CT or MRI for further evaluation of TMJ pathology. Narrative 09/29/2024 6:05 PM EDT XR TEMPOROMANDIBULAR JOINT (BILATERAL) Referring clinician's provided indication for this examination in [facility]: TMJ pain or limited movement; right TMJ pain COMPARISON: None FINDINGS: No definite temporomandibular dislocation. No displaced fracture. Metallic dental hardware. Right-sided cochlear implant. Procedure Note Priscilla Gilman MD - 09/29/2024 XR TEMPOROMANDIBULAR JOINT (BILATERAL) Referring clinician's provided indication for this examination in [facility]:TMJ pain or limited movement; right TMJ pain COMPARISON: None FINDINGS: No definite temporomandibular dislocation. No displaced fracture.Metallic dental hardware. Right-sided cochlear implant. IMPRESSION: No definite temporomandibular dislocation. Consider CT or MRI for furtherevaluation of TMJ pathology. Lynsey Gunter Jesicajosiah HOME CARE PHYSICAL THERAPIST IMG XR HEAD AND SHUNT SERIES Final Result * Outside TSH Level (06/08/2024) Pathologist [facility] TSH - External 2.14 0.5 - 5 uIU/L EXTERNAL NON-INTERFACED REF LAB Historical Provider LAB BLOOD ORDERABLES Gisela l Result Performing Organization Address City/[facility]/ZIP Co de Phone Number EXTERNAL NON-INTERFACED REF LAB * (ABNORMAL) Lipid panel (06/01/2024 10:16 AM EDT) Pathologist [facility] HDL 71 mg/dL [facility] Comment: Interpretation <40 mg/dL: Low HDL cholesterol (major risk factor for CHD) Greater than or equal to 60 mg/dL: High HDL cholesterol ( negative risk factor for CHD) HDL - cholesterol is affected by a number of factors, e.g. smoking, excerise, hormones, sex and age. CHOLESTEROL 223 0 - 240 mg/dL [facility] TRIGLYCERIDES 147 30 - 160 mg/dL [facility] LDL 123 50 - 129 mg/dL [facility] Comment: LDL levels in terms of risk for coronary heart disease: <100 mg/dL: Optimal 100-129 mg/dL: Near or above optimal 130-159 mg/dL: Borderline high 160-189 mg/dL: High >190 mg/dL: Very High CARDIAC RISK RATIO 3.1(L) 3.4 - 5.0 [facility] Blood 06/01/2024 10:1 6 AM EDT 06/01/2024 10:20 AM EDT Cruzito Cannon MD LAB BLOOD ORDERABLES Final Re sult [facility] [address] [place] [address] * Outside Hepatitis C Virus Screening (07/21/2019) Pathologist [facility] Hepatitis C Screening - External Neg Historical Provider LAB BLOOD ORDERABLES Gisela l Result * COLONOSCOPY FOR RESULT ENTRY ONLY (03/14/2015) Pathologist Pending sale to [facility] Colonoscopy 10 year repeat Historical Provider HEALTH MAINTENANCE Final Result from Last 3 Months or Most Recently Relevant to Health Maintenance Insurance [employer] MEDEX SUPPLEMENT MEDICARE PART A & B [employer] MEDEX SUPPLEMENT MEDICARE PART A & B [employer] MEDEX SUPPLEMENT MEDICARE PART A & B [employer] MEDEX SUPPLEMENT MEDICARE PART A & B [employer] MEDEX SUPPLEMENT MEDICARE PART A & B [employer] MEDEX SUPPLEMENT MEDICARE PART A & B Advance Directives For more information, please contact: [phone] (9AM - 5PM Celia/[place], Wednesday-Wednesday) * Full Code (Latest Code Status on File) Date Activated Date Inactivated Comments 07/21/2022 12:29 PM Question Answer Comments Code Status Confirmed With: Patient Care Teams Relocation Counselor Relationship Specialty Start Date End Date Cruzito Cannon MD [address] [place] [address] [email or web address] PCP - General Internal Medicine 02/05/17 Juan Pablo Andres MD [address] [place] [address] Physical Medicine and Rehabilitation 02/06/20 Enrique Kerr MD [address] [facility] [address] [address] [email or web address] 02/21/20 Albert Headley MD [address] [address] Cardiology 03/22/20 Additional Source Comments The information contained in this document represents components of the legal health record. It is not the complete legal health record.[facility]
--- OUTSIDE RECORDS SUMMARY | 2024-11-14 09:07 | XMS_ITS | Encounter Summary ---
Author Organization [facility] Address [address] [place] [address] Phone Care Team Providers Care Meteorology Instructor Name Role Phone Cruzito Cannon MD Primary Care Provider Juan Pablo Andres MD Unavailable Enrique Kerr MD Unavailable [phone] Albert Headley MD Unavailable Encounter Details Date Type Department Care Team (Late Contact Info) Description 07/21/2022 Procedure Pass OR Admitting Dept - [facility] Department [address] [place] [address] Social History Tobacco Use Types Packs/Day Years Used Date Smoking Tobacco: Never Smokeless Tobacco: Never Alcohol Use Standard Drinks/Week Comments Never 0 (1 standard drink = 0.6 oz pur e alcohol) Education Answer Date Recorded Are you interested in more education? Not on linh e 07/02/2022 Are you concerned about learning? Not on file 07/02/2022 No 07/02/2022 No 07/02/2022 Sex and Gender Information Value Date Recorded Sex Assigned at Not on file Legal Sex Male 5:32 PM EST Gender Identity Not on file Sexual Orientation Not on file documented as of this encounter Plan of Treatment Upcoming Encounters Date Type Department Care Team (Late Contact Info) Description 02/16/2025 10:30 AM EST Office Visit [facility] Internal Medicine [address] [place] [address] Cruzito Cannon MD [address] [place], [place] [email or web address] 07/18/2025 10:00 AM EDT Office Visit [facility] Internal Medicine [address] [place], [place] [phone] Cruzito Cannon MD [address] [place], [place] [email or web address] documented as of this encounter Visit Diagnoses Not on filedocumented in this encounter Additional Health Concerns Infection Onset Date Last Indicated Resolved Time 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 07/01/2022 06/30/2024 1:21 AM EDT Assessment Noted Time PHQ-2 Depression Total Score: 0 05/01/19 10:54 AM EST documented as of this encounter Care Teams Meteorology Instructor Relationship Specialty Start Date End Date Cruzito Cannon MD [address] [place] [address] [email or web address] PCP - General Internal Medicine 02/05/17 Juan Pablo Andres MD [address] [place] [address] Physical Medicine and Rehabilitation 02/06/20 Enrique Kerr MD [address] [place], [place] [address] [address] [address] [email or web address] Otolaryngology 02/21/20 Albert Headley MD [address] [place], [place] [address] [address] [address] Cardiology 03/22/20 documented as of this encounter Additional Source Comments The information contained in this document represents components of the legal health record. It is not the complete legal health record.[facility]
--- OUTSIDE RECORDS SUMMARY | 2024-11-14 09:07 | XMS_ITS | Encounter Summary ---
Author Organization [facility] Address [address] [place] [address] Phone Care Team Providers Care Custom Applicator Name Role Phone Cruzito Cannon MD Primary Care Provider [phone] Juan Pablo Andres MD Unavailable Enrique Kerr MD Unavailable Albert Headley MD Unavailable [phone] Encounter Details Date Type Department Care Team (Late Contact Info) Description 03/08/2021 Procedure Pass [facility] [address] [place] [phone] Social History Tobacco Use Types Packs/Day Years [...] Description 02/16/2025 10:30 AM EST Office Visit [facility] Internal Medicine [address] [place], [place] [phone] Cruzito Cannon MD [address] [place], [place] [phone] 07/18/2025 10:00 AM EDT Office Visit [facility] Internal Medicine [address] [place] [address] Cruzito Cannon MD [address] [place] [address] [email or web address] documented as of this encounter Visit Diagnoses [...] documented as of this encounter Care Teams Custom Applicator Relationship Specialty Start Date End Date Cruzito Cannon MD [address] [place] [address] [email or web address] PCP - General Internal Medicine 02/05/17 Juan Pablo Andres MD [address] [place] [address] Physical Medicine and Rehabilitation 02/06/20 Enrique Kerr MD [address] [place] [address] [place] [address] [email or web address] Otolaryngology 02/21/20 Albert Headley MD [address] [place] [address] [place] [address] Cardiology 03/22/20 documented as of this encounter Additional Source Comments The information contained in this document represents components of the legal health record. It is not the complete legal health record.[facility]
--- OUTSIDE RECORDS SUMMARY | 2024-11-14 09:07 | XMS_ITS | Encounter Summary ---
Author Organization [facility] Address [address] [place] [address] Care Team Providers Care Adjunct Professor Of [employer].[place]. History Name Role Phone DavisCruzito Primary Care Provider [phone] Reason for Visit * Reason Onset Date Comments PAC- Edgardo-telehealth appt 06/23/2022 Encounter Details Date Type Department Care Team (Late st Contact Info) Description 06/23/2022 Telephone [facility] Patient Access Center [address] [place] [address] Telephone Intake, Staff PAC- Edgardo-telehealth appt Social [...] if possible. Please reach out to patient [phone] documented in this encounter Plan of Treatment Upcoming Encounters Date Type Department Care Team (Late st Contact Info) Description 11/20/2024 1:45 PM EDT Follow-Up [facility] [address] [place] [address] Danny Reynoso MD [address] [place] [address] documented as of this encounter Visit Diagnoses Not on filedocumented in this encounter Care Teams Adjunct Professor Of U.[employer]. History Relationship Specialty Start Date End Date Cruzito Cannon Fabiola [facility] Internal Medicine [address] [place] [address] PCP - General Internal Medicine 04/06/22 documented as of this encounter
--- OUTSIDE RECORDS SUMMARY | 2024-11-14 09:08 | XMS_ITS | Encounter Summary ---
Author Organization [facility] Address [address] [place] [address] Phone Care Team Providers Care Carbide Tool Die Maker Name Role Phone Cruzito Cannon MD Primary Care Provider Juan Pablo Andres MD Unavailable [phone] Enrique Kerr MD Unavailable [phone] Albert Headley MD Unavailable Encounter Details Date Type Department Care Team (Late st Contact Info) Description 05/07/2021 Ancillary Orders [facility],Outside Imaging [address] [place] [address] System, Provider Not In, [place] [address] Social History Tobacco Use Types Packs/Day Years Used Date Smoking Tobacco: Never Smokeless Tobacco: Never Alcohol Use Standard Drinks/Week Comments Not Currently 0 (1 standard drink = 0.6 oz pur e alcohol) Quit 03/2020 Sex and Gender Information Value Date Recorded Sex Assigned at Not on file Legal Sex Male 5:32 PM EST Gender Identity Not on file Sexual Orientation Not on file documented as of this encounter Plan of Treatment Upcoming Encounters Date Type Department Care Team (Late Contact Info) Description 02/16/2025 10:30 AM EST Office Visit [facility] Internal Medicine [address] [place] [address] Cruzito Cannon MD [address] [place], [place] [phone] 07/18/2025 10:00 AM EDT Office Visit [facility] Internal Medicine [address] [place], [place] [phone] Cruzito Cannon MD [address] [place], [place] [phone] documented as of this encounter Results * CT Abdomen/Pelvis Outside (No Interpretation) (04/22/2021 12:00 AM EST) Narrative SYSTEMGENERATED, DOCUMENTATION - 05/07/2021 5:52 PM EST This study is for PACS storage only and not for interpretation. us Provider Not In System PhD IMG OUTSIDE IMAGING W /OUT INTERPRETATION Final Result documented in this encounter Visit Diagnoses Not on filedocumented [...] documented as of this encounter Care Teams Carbide Tool Die Maker Relationship Specialty Start Date End Date Cruzito Cannon MD [address] [place], [place] [phone] PCP - General Internal Medicine 02/05/17 Juan Pablo Andres MD [address] [place] [phone] Physical Medicine and Rehabilitation 02/06/20 Enrique Kerr MD [address] [place] [address] [address] [email or web address] Otolaryngology 02/21/20 Albert Headley MD [address] [address] Cardiology 03/22/20 documented as of this encounter Additional Source Comments The information contained in this document represents components of the legal health record. It is not the complete legal health record.[facility]
--- OUTSIDE RECORDS SUMMARY | 2024-11-14 09:08 | XMS_ITS | Encounter Summary ---
Author Organization [facility] Address [address] [place] [phone] Phone Care Team Providers Care Director Heart Name Role Phone Cruzito Cannon MD Primary Care Provider Juan Pablo Andres MD Unavailable Enrique Kerr MD Unavailable [phone] Albert Headley MD Unavailable Encounter Details Date Type Department Care Team (Late Contact Info) Description 07/21/2022 Procedure Pass OR Admitting Dept - [facility] Department [address] [place] [phone] Social History Tobacco Use Types Packs/Day Years [...] Description 02/16/2025 10:30 AM EST Office Visit [facility] Internal Medicine [address] [place] [address] Cruzito Cannon MD [address] [place], [place] [email or web address] 07/18/2025 10:00 AM EDT Office Visit [facility] Internal Medicine [address] [place], [place] [phone] Cruzito Cannon MD [address] [place], [place] [email or web address] documented as of this encounter Visit Diagnoses Not on filedocumented in this encounter Additional Health Concerns Infection Onset Date Last Indicated Resolved Time 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 07/01/2022 06/30/2024 1:21 AM EDT Assessment Noted Time PHQ-2 Depression Total Score: 0 05/01/19 10:54 AM EST documented as of this encounter Care Teams Director Heart Relationship Specialty Start Date End Date Cruzito Cannon MD [address] [place] [address] [email or web address] PCP - General Internal Medicine 02/05/17 Juan Pablo Andres MD [address] [place] [phone] Physical Medicine and Rehabilitation 02/06/20 Enrique Kerr MD [address] [place], [place] [address] [address] [address] [email or web address] Otolaryngology 02/21/20 Albert Headley MD [address] [place], [place] [address] [address] [address] Cardiology 03/22/20 documented as of this encounter Additional Source Comments The information contained in this document represents components of the legal health record. It is not the complete legal health record.[facility]
== END 2024-11-14 08:16 | disposition home or self-care (01) ==
LOC: HO.XRAY 08:15
PROVIDERS: PCP Nurse Practitioner Family; Visit Provider Nurse Practitioner Family
DX: R13.10 Dysphagia, unspecified (principal)
CPT/HCPCS: 74220

== ENCOUNTER → 2024-11-14 08:16 | Outpatient (BNV) | payer MEDICARE, SELFPAY | PROVIDERS: PCP Nurse Practitioner Family; Visit Provider Radiology Diagnostic Radiology | DX: R13.10 Dysphagia, unspecified (principal) | CPT/HCPCS: 74246 ==

== ENCOUNTER 2024-12-14 11:14 | Outpatient (AMB) | payer MEDICARE, SELFPAY ==
--- NOTE | 2024-12-14 11:15 | MHC.OFFVIS ---
Vital Signs 12/14/24 11:16 Height 5 ft 10 in Weight 178 lb BMI 25.5 BP 128/82 Blood Pressure Location Rt brachial Position Sitting Pulse 74 Pulse Source Pulse Oximeter Pulse Oximetry (%) 100 Oxygen Delivery Method Room Air Intake Visit Reasons: PUD, am quesiness Intake Note: Est pt for mgmt of GERD. CC: C.O. intermittent chronic sx despite current therapies. Pt states that the PPI is helping to mitigate their sx but not to resolve them. Pt is no longer taking famotidine as it was not having any effect on him. Vat Skimmer Required: No Accompanied by: Self / Same As Patient Allergies No Known Allergies Allergy (Verified 12/14/24 11:16) HPI HPI PUD, am quesiness: Details: Assessment & Plan (1) Dysphagia: Comment: improved 80% s/p dilation Code(s): R13.10 - Dysphagia, unspecified Category: Medical (2) Peptic ulcer disease: Comment: erosions in stomach on EGD 09/2024 Code(s): K27.9 - Peptic ulcer, site unspecified, unspecified as acute or chronic, without hemorrhage or perforation Category: Medical Plan - The patient is a 74-year-old male presenting with difficulty swallowing and gastric discomfort. - Post-endoscopy, his dysphagia has improved after esophageal dilation addressing the detected Schatzki's ring. - He previously experienced food impaction episodes, which have ceased following the procedure. He has a different problem with liquids causing near aspiration but notes that it tends to happen when he is trying to drink quickly. - Despite taking pantoprazole, he continues to have morning gastric queasiness, which does not improve significantly post-medication. - The queasiness abates after urination and eases roughly an hour later. - He recalls his stomach sensations similar to past peptic ulcer pain. - Following an assessment, its results indicated the presence of a sliding hiatal hernia and mild gastric erosions. - Additionally, a colonoscopy revealed a real polyp and mild diverticulosis, and internal hemorrhoids, requiring surveillant colonoscopy in five years pending health status. - Though the presence of a hiatal hernia is acknowledged, he reports no severe associated pains. - Gastric discomfort symptoms persist with a queasy feeling not significantly alleviated by pantoprazole. - Continue pantoprazole 40 mg each morning. - Add famotidine at night to alleviate morning acid discomfort. - Lifelong acid reduction therapy advised due to sliding hiatal hernia to manage symptoms and mitigate further complications. - Possible future dilation if dysphagia re-emerges. - Follow-up in 6-8 weeks to assess response to current treatments. - Plan surveillance colonoscopy in five years to monitor and prevent colon issues. The procedure was well tolerated. The results were explained and the patient is agreeable to the follow-up interval as stated. The bowel pattern has returned to normal. Education was provided to tell any 1st degree relatives about their findings to be sure that they are screened by age 45. Educated that they will be put on a recall list when it is time for their repeat scope but should they move out of state or away from the hospital they will need to remember along with their primary to repeat the procedure in a timely fashion to avoid any adverse complications. A great deal of time of was spent explaining to him the pathophysiology of losing our ability to make the mucosal layer to protect the stomach over time with age and how this can lead to ulcer disease. He also likely needs lifelong PPI therapy so as not to develop another stricture that we will need read dilation or to do develop Barretts esophagus which could lead to esophageal cancer. We episode of mild aspiration when drinking too quickly is likely related to a slow down of the neurological coordination with aging and no other severe pathology. He agrees that this only tends to happen when he is rushing and only with thin liquids. Patient was informed and verbally consented to the use of an ambient scribe for clinic note documentation during this visit. Return office visit in 8 weeks Medications: New famotidine (Pepcid) 40 mg PO BEDTIME 30 tabs 6RF TODAYS VISIT [facility] Medical History External hemorrhoids Insomnia Hypothyroid Hearing loss in right ear DMITRI (obstructive sleep apnea) Dysphagia Surgical History History of esophagogastroduodenoscopy (EGD) H/O colonoscopy S/P ureteral reimplantation H/O shoulder surgery S/P trigger finger release H/O lymph node excision History of lumbar surgery S/P endoscopic carpal tunnel release Previous back surgery Family History Brother Coronary artery disease Heart disease Mother Heart disease Father Stroke Social History Alcohol intake: current Alcohol intake frequency: does not drink Patient Tobacco Use Status: Never used Tobacco Second Hand Smoke Exposure: No Review of Systems Const Denies fatigue, Denies fever(s), Denies night sweats, Reports poor appetite and Denies weight loss ENT Reports Normal hearing present, Denies dental pain, Denies dysphagia, Denies hearing loss, Denies mouth pain, Denies odynophagia, Denies throat swelling, Denies tongue swelling and Reports other (Dentition adequate) Card Reports no additional complaints Resp Reports no additional complaints GI Details: Denies abdominal pain, Denies melena, Denies bloating, Denies hematochezia, Denies constipation, Denies GI cramping, Denies dysphagia, Denies excessive flatus, Denies early satiety, Reports dyspepsia, Reports heartburn, Denies diarrhea, Denies nausea, Denies odynophagia, Denies vomiting and Denies hematemesis Skin/Breast Denies pruritus, Denies lesions, Denies rash and Denies jaundice Neuro Reports Normal hearing present and Denies Abnormal speech present Endo Denies fatigue Aller/Immun Denies throat swelling and Denies tongue swelling Physical Exam Vital Signs: Last Vital Signs Pulse 74 12/14/24 11:16 BP 128/82 12/14/24 11:16 Pulse Ox 100 12/14/24 11:16 Oxygen Delivery Method Room Air 12/14/24 11:16 BMI result Body Mass Index 25.5 Const General: cooperative, no acute distress, well developed and well groomed Nutritional Appearance: average body habitus and well nourished Orientation/consciousness: oriented to person, oriented to place and oriented to time Limitations: No language barrier HEENT Head: Yes normocephalic and Yes atraumatic Eyes General: appearance normal, both eyes and all related structures Pupils: Equal, round and reactive pupils present Neck Neck: Yes normal visual inspection and Yes no lymphadenopathy Thyroid: Thyroid normal Resp Effort & Inspection: normal respiratory effort and able to speak in complete sentences Auscultation: clear to auscultation bilaterally Cardio Rate: regular rate Rhythm: regular rhythm Heart sounds: Normal, physiologic split S2 sound present Peripheral pulses: radial pulses present and posterior tibial pulses present GI Inspection: No distended and No Abdominal panniculus present Palpation (GI): Soft to palpation, nontender, no guarding, not rigid and No hepatosplenomegaly present Percussion: Yes normal to percussion Auscultation: normal bowel sounds Rectal Exam - Male: Yes deferred Skin General skin exam: no rashes or lesions noted, turgor normal, skin not dry, no jaundice, No spider nevi and no striae Rashes: no rashes Nails: normal Neuro General: oriented to person, oriented to place and oriented to time Cranial nerves: Yes Equal, round and reactive pupils present and Yes Normal hearing present Speech: No Abnormal speech present Extrem General: Yes normal to inspection, No clubbing, No cyanosis and No edema Psych Appearance: grossly normal and well kempt Mental Status: mental status grossly normal Speech and movement: Normal speech and movement present Affect: normal affect Attitude: cooperative Thought process: Normal thought process present and not confabulating Thought content: Normal thought content present Insight: Good insight present (Psych) Judgement: Good judgement present (Psych) Assessment & Plan Assessment & Plan (1) Peptic ulcer disease: Comment: erosions in stomach on EGD 09/2024 Code(s): K27.9 - Peptic ulcer, site unspecified, unspecified as acute or chronic, without hemorrhage or perforation Category: Medical (2) Dysphagia: Comment: improved 80% s/p dilation Code(s): R13.10 - Dysphagia, unspecified Category: Medical Plan - The patient is a 74-year-old male presenting with concerns about dyspepsia. - Reports persistent sour stomach in the morning, resembling ulcerative discomfort. - Pantoprazole 20 mg offered partial improvement but not complete relief. - Famotidine trial was ineffective, discontinued after two weeks. - An endoscopy revealed gastric irritation and erosions, interpreted by the patient as pre-ulcers. - Noted difficulty swallowing since the procedure, especially with solid foods, post-procedure esophageal dilation no affect. He experiences mild aspiration when drinking too quickly is likely related to a slow down of the neurological coordination with aging and no other severe pathology. He agrees that this only tends to happen when he is rushing and only with thin liquids. - Describes morning discomfort as a sour stomach subsiding shortly after arising. - Begin taking Sucralfate before meals, ensuring at least two hours of separation from other medications. - Increase pantoprazole to 40 mg in the morning. - Schedule a modified barium swallow test. - Monitor for and manage potential constipation if needed while on Sucralfate. - Report any new symptoms or side effects promptly. - Follow up in six weeks to assess progress and response to treatment. Orders: Orders FL Modified Barium Swallow 12/14/24 R13.10 - Dysphagia, unspecified Medications: New sucralfate (Carafate) 1 g PO QPM 30 tabs 6RF K27.9 - Peptic ulcer, site unspecified, unspecified as acute or chronic, without hemorrhage or perforation Changed From pantoprazole 20 mg PO DAILY 90 tabs 2RF To pantoprazole 40 mg (2 x 20 mg) PO DAILY 90 tabs 2RF Coding Level of Care Code Est Pt Level 3 (71526) Diagnoses Peptic ulcer disease K27.9 Dysphagia R13.10
[2024-12-14 11:16] VITALS: BP 128/82; PULSE 74; O2SAT 100; BMI 25.5
== END 2024-12-14 11:52 | disposition home or self-care (01) ==
LOC: HO.HGI 11:15
PROVIDERS: PCP Internal Medicine; Visit Provider Nurse Practitioner
DX: K27.9 Peptic ulcer, site unspecified, unspecified as acute or chronic, without hemorrhage or perforation (principal); R13.10 Dysphagia, unspecified
CPT/HCPCS: 99213

== ENCOUNTER → 2024-12-14 11:14 | Outpatient (BNVA) | payer MEDICARE, SELFPAY | PROVIDERS: PCP Internal Medicine; Visit Provider Nurse Practitioner | DX: K25.9 Gastric ulcer, unspecified as acute or chronic, without hemorrhage or perforation (principal); R13.10 Dysphagia, unspecified | CPT/HCPCS: 99212 ==

== ENCOUNTER 2025-01-16 14:18 | Outpatient (REF) | payer MEDICARE, SELFPAY ==
--- NOTE | ~2025-01-16 | FL_ITS ---
EXAMINATION: XR BARIUM SWALLOW CLINICAL INFORMATION: Dysphagia COMPARISON: None available. TECHNIQUE: Barium swallow performed by the speech pathologist FINDINGS: Patient swallowed liquids and solids of varying consistency. There was 1 episode of possible laryngeal penetration. See speech pathology report for details. FLUOROSCOPY TIME: 54 seconds DOSE AREA PRODUCT: 509 uGy-m2 (microgray-meter squared) FL/FL Modified Barium Swallow IMPRESSION: Modified barium swallow performed by speech pathologist.] See speech pathology report for details.. Electronically signed by: Henrik Williamson MD 01/16/2025 04:24 PM DEVEN NAQVI
--- NOTE | 2025-01-16 15:55 | MHC.SL.IMP ---
Date of Plan of Treatment: 01/16/25 Onset of Symptoms/Illness: 12/15/24 Date Treatment Started: 01/16/25 Admitting Diagnosis: Hx DMITRI, diverdiculosis, small sliding hiatal hernia, Schatzki's ring Primary Speech & Language Diagnosis: R13.10 Dysphagia Reason for Today's Visit: 35535 Modified Barium Swallow Study Pre-evaluation Dietary Consistencies: Regular Pre-evaluation Liquid Consistency: Thin Pre-evaluation Medication Administration: Whole with Liquid Medical History: Modified Barium Swallow Study Fluoroscopic Evaluation of Swallowing Function CPT Code 99871 Evaluation Year: 2024 Reason for Study: Patient reporting difficulty swallowing. Referring Physician: Rosio WALTONC Evaluating Clinician: Autumn Navarrete MA, CCC-PAINTER HAND Study Number: 1 Patient Name: Ron Klein Status: Outpatient, Ambulatory Age: 74 Sex: Male Medical History Medical History External hemorrhoids Insomnia Hypothyroid Hearing loss in right ear DMITRI (obstructive sleep apnea) Dysphagia Surgical History History of esophagogastroduodenoscopy (EGD) H/O colonoscopy S/P ureteral reimplantation H/O shoulder surgery S/P trigger finger release H/O lymph node excision History of lumbar surgery S/P endoscopic carpal tunnel release Previous back surgery Current (pre-evaluation) Intake/Diet: Route: PO Diet Grade: Regular Liquid Consistencies: Thin Pre-Study Functional Oral Intake Scale (FOIS): 7- Total oral intake with no restrictions Pain: None reported at time of study SUBJECTIVE: Patient is a 74 year old male sent for a modified barium swallow study (MBSS) by the link knitting machine operator. Patient has been followed by GI for difficulty swallowing and gastric discomfort. He has history of Schatzki?s ring s/p esophageal dilation, colonoscopy w/ mild diverticulosis, and food impaction episodes which reportedly ceased after dilation. Patient also reports having reflux, for which he takes pantoprazole. He now reports problems drinking liquids, having episodes of ?near aspiration,? which he believes occurs more often from drinking too quickly, but can happen with saliva as well. Patient reports he is not in any distress when this happens and feels that he can breathe without issue, but has persistent coughing and discomfort for several minutes before it subsides. Patient also reports having difficulty with certain solids, such as steak, and feeling like it get stuck in his larynx. He feels that he must swallow effortfully in order to clear it. Patient did have a barium swallow on 11/14/24 which showed a small sliding hiatal hernia without reflux, no esophageal narrowing or stricture. Food and Liquid Trials: Oral Impairment: Lip Closure: Did not test Oral Impairment: Tongue Control During Bolus Hold: 1=Escape to lateral buccal cavity/floor of mouth (FOM) Oral Impairment: Bolus Preparation/Mastication: 0=Timely and efficient chewing and mashing Oral Impairment: Bolus Transport/Lingual Motion: 0=Brisk tongue motion Oral Impairment: Oral Residue: 1=Trace residue lining oral structures Oral Impairment:Initiation of Pharyngeal Swallow: 1=Bolus head in valleculae Pharyngeal Impairment: Soft Palate Elevation: 0=No bolus between soft palate (SP)/pharyngeal wall (PW) Pharyngeal Impairment: Laryngeal Elevation: 0=Complete superior movement of thyroid cartilage (see description) Pharyngeal Impairment: Anterior Hyoid Excursion: 1=Partial anterior movement Pharyngeal Impairment: Epiglottic Movement: 0=Complete inversion Pharyngeal Impairment: Laryngeal Vestibular Closure:: 1=Incomplete: narrow column air/contrast in laryngeal vestibule Pharyngeal Impairment: Pharyngeal Stripping Wave: 0=Present: complete Pharyngeal Impairment: Pharyngeal Contraction: Did not test Pharyngeal Impairment: Pharyngoesophageal Segment Openin=Partial distention/partial duration: partial obstruction of flow Pharyngeal Impairment: Tongue Base (TB) Retraction: 1=Trace column of contrast/air between TB and posterior PW Pharyngeal Impairment: Pharyngeal Residue: 1=Trace residue within or on pharyngeal structures Pharyngeal Impairment: Esophageal Clearance Upright Position: Did not test Impressions and Recommendations OBJECTIVE: Time-out: performed at 14:45 Evaluation Start: 14:30; Stop: 14:35 Patient Positioning: Standing Viewing Planes: LATERAL ONLY Contrast: MBSImP? Standardized Protocol using commercially prepared, standardized Barium viscosities, including: Varibar? THIN LIQUID (40% w/v, <15 cps) , Varibar? PUDDING (40% w/v, <9861-4577 cps) , 1/2 Shortbread Cookie (1 x1 x.25 ) MBSImP ID: [id number] MBSImP Results: Lip closure for intraoral bolus containment could not be assessed due to logistical reasons not related to physiologic impairment. Tongue control during bolus hold allowed bolus escape to the lateral buccal cavity/floor of mouth. Bolus preparation and mastication resulted in timely and efficient chewing and mashing. Bolus transport/lingual motion was with brisk tongue motion. Oral residue was a trace, lining oral structures. Initiation of the pharyngeal swallow occurred when the bolus head was in the valleculae. Soft palate elevation resulted in no bolus between the soft palate and the pharyngeal wall. Laryngeal elevation demonstrated complete superior movement of the thyroid cartilage with complete approximation of the arytenoids to the epiglottic petiole. Anterior hyoid excursion demonstrated partial anterior movement. Epiglottic movement resulted in complete inversion. Laryngeal vestibular closure was incomplete, with a narrow column of air/contrast noted within the laryngeal vestibule at the height of the swallow. Pharyngeal stripping wave was present and complete. Pharyngeal contraction could not be determined due to logistical reasons not related to physiologic impairment. Pharyngoesophageal segment opening demonstrated partial distension/partial duration, with partial obstruction of bolus flow. Tongue base retraction allowed a trace column of contrast or air between the retracted tongue base and the posterior pharyngeal wall. Pharyngeal residue was a trace within or on pharyngeal structures. Esophageal clearance in the upright position could not be assessed due to logistical reasons not related to physiologic impairment. Oral Impairment Score: 2 (absence of score, component 1) Pharyngeal Impairment Score: 3 (absence of score, component 13) Esophageal Impairment Score: --- (absence of score, component 17) Laryngeal Penetration and Aspiration: Neither penetration nor aspiration was observed in today's study with Cookie, Pudding-thick. Penetration was observed in today's study. Thin Contrast entered the airway, remained above the vocal folds, and was ejected from the airway. ASSESSMENT: This exam was performed by the radiologist and the speech pathologist. Patient was standing for lateral view. He fed himself independently and trialed the following consistencies: -Thin liquid (via individual cup sips and rapid cup sips) -Puree (mixture applesauce w/ barium pudding) -Regular (shortbread cookies coated w/ barium pudding) Good oral containment with no anterior loss of bolus. Intact rotary chew with timely mastication of solids. There was trace spillage from the oral cavity intermittently, with contrast collecting in the valleculae and pyriforms prior to the pharyngeal swallow trigger. Posterior lingual motion for bolus transport was timely with brisk tongue movement. Pharyngeal swallow trigger initiated as the bolus head reached the valleculae. Post swallow, there was trace residue lining the blade of tongue, which cleared on secondary swallows. No evidence of nasopharyngeal reflux. Complete laryngeal elevation with complete epiglottic inversion and incomplete laryngeal vestibular closure. There was a singular episode of trace penetration on thin liquid above the vocal folds, which spontaneously cleared. This was not repeated on subsequent trials of thin liquid. No evidence of aspiration during this exam. There was trace residue in the valleculae and pyrifroms, which completely cleared with secondary swallows. Liquid Intake Recommendation: Thin Liquid Intake Strategies: Dietary Recommendations: Regular Medication Administration: Whole with Liquid Please contact the pharmacy regarding appropriate crushable or liquid drug formulations that are available whenever modified delivery is recommended. Recommendation for Speech Therapy: NA:Typical Evaluation Text Comment: Intake Recommendations: Route: PO Diet Grade: Regular Liquid Consistencies: Thin Post-Study Functional Oral Intake Scale (FOIS): 7- Total oral intake with no restrictions Overall unremarkable exam. There was some premature posterior spillage from the oral cavity. Otherwise, oral phase was timely and efficient, with intact rotary chew and timely AP transport. There was single episode of flash penetration when patient took rapid sequential sips of thin liquid. This was not seen on single sips of thin liquid. No evidence of aspiration during this exam. Trace residue cleared on secondary swallows. Patient did report some throat discomfort and globus sensation after the exam. Imaging at this point showed complete oral and pharyngeal clearance. Suggested Referrals to Discuss w/ Referring Provider: The patient might benefit from a referral to: Otolaryngology Patient says he sees Dr. Cheung of [facility] Follow-up w/ ENT: Question for irritable larynx/hypersensitivity, patient reports reflux and throat pain and discomfort, says he has had a videostroboscopy before Therapy Recommendations: Speech therapy is not warranted at this point, as swallow in the oral and pharyngeal phase is deemed functional based on observations made during this exam. Patient is to follow-up with referring GI provider as indicated. Clinician - Supplemental, Miscellaneous Communication: It is important to note MBSS objective studies are snapshots in time and Patient function might vary with factors such as time of day or concomitant medical conditions. For this reason, the final treatment plan for this patient should rest with their medical care team. Additional recommendations should be considered with the totality of the Patient in mind. Thank for the opportunity to participate in the care of this patient. If you have any questions about the content of this report, please contact the [facility]. Education: Education regarding findings from today's study and plans for therapy were provided to Patient only through Verbal Instruction. Understanding was expressed by the Patient only. Sealing And Canceling Machine Operator Clinician/Clinical Fellow: No Supervisory Statement: N/A Speech Language Pathologist: Autumn Navarrete M.A., CCC-PAINTER HAND
--- OUTSIDE RECORDS SUMMARY | 2025-01-16 15:57 | XMS_ITS | Encounter Summary ---
Author Organization [facility] Address [address] [place] [phone] Phone Care Team Providers Care Logistical Engineer Name Role Phone Cruzito Cannon MD Primary Care Provider Juan Pablo Andres MD Unavailable Enrique Kerr MD Unavailable [phone] Albert Headley MD Unavailable [phone] Encounter Details Date Type Department Care Team (Latest Contact Info) Description 09/29/2024 Ancillary Orders [facility] [address], [place] [phone] Lynsey Alanis, CREPING MACHINE OPERATOR [address], [place] [phone] [email or web address] Jaw pain (Primary Dx) Social History [...] Description 02/16/2025 10:30 AM EST Office Visit [facility] [address] [place] [address] Cruzito Cannon MD [address] [place] [address] 07/18/2025 10:00 AM EDT Office Visit [facility] Internal [facility] [address] [place] [address] Cruzito Cannon MD [address] [place] [phone] documented as of this encounter Results * XR Temporomandibular Joint (Bilateral) (09/29/2024 10:57 AM EDT) Anatomical Region Laterality Modality Face Computed Radiogr aphy 09/29/2024 1:55 PM EDT Impressions 09/29/2024 6:05 PM EDT No definite temporomandibular dislocation. Consider CT or MRI for further evaluation of TMJ pathology. Narrative 09/29/2024 6:05 PM EDT XR TEMPOROMANDIBULAR JOINT (BILATERAL) Referring clinician's provided indication for this examination in [facility]: TMJ pain or limited movement; right TMJ [...] for furtherevaluation of TMJ pathology. Lynsey Alanis CREPING MACHINE OPERATOR IMG XR HEAD AND SHUNT SERIES Final Result documented in this encounter Visit Diagnoses Diagnosis Jaw pain Jaw pain- Primary documented in this encounter Additional Health Concerns Assessment Noted Time PHQ-2 Depression Total Score: 0 07/15/19 25 9:47 AM EDT documented as of this encounter Care Teams Logistical Engineer Relationship Specialty Start Date End Date Cruzito Cannon MD [address] [place] [phone] [email or web address] PCP - General Internal Medicine 02/05/17 Juan Pablo Andres MD [address] [place] [phone] Physical Medicine and Rehabilitation 02/06/20 Enrique Kerr MD [address] [place] [phone] [email or web address] 02/21/20 Albert Headley MD [address] [facility] [address] [place] [address] Cardiology 03/22/20 documented as of this encounter Additional Source Comments The information contained in this document represents components of the legal health record. It is not the complete legal health record.[facility]
--- OUTSIDE RECORDS SUMMARY | 2025-01-16 15:57 | XMS_ITS | Clinical Summary ---
Author Organization [facility] Address [address] [place] [address] Care Team Providers Care High Man Name Role Phone CatoosaCruzito Primary Care Provider Allergies Active Allergy Reactions Criticality Noted Date Comments Alfuzosin Other (see comments) 01/07/2022 Nauseau, spacy and felt sick Atorvastatin Other (see comments) 05/20/2020 Stomach upset and headaches nauseau Constipated . Gabapentin Other (see comments) 12/24/2020 [place] Hydrochlorothiazide Other (see comments) 2016 [place] Hydromorphone Other (see comments) 03/31/2021 Made headache worse Nortriptyline Other (see comments) 02/05/2017 [place] Medications albuterol (PROAIR HFA,VENTOLIN HFA) 90 [...] Take 0.4 mg by mouth. 05/01/2021 Active Hospital, Clinic, or Other Facility Administered Medication Ordered Dose Route Frequency Start Date End Date Status lidocaine PF (XYLOCAINE) 1% (10 mg/mL) injection 7 mLIndications:Environmental Permitting Specialist vernon left shoulder pain,Osteoarthriti s of glenohumeral joint, left 7 mL injection One-time injection 01/04/2025 01/04/2025 Ended triamcinolone acetonide (KENALOG-40) injection 40 mgIndications:Environmental Permitting Specialist vernon left shoulder pain,Osteoarthriti s of glenohumeral joint, left 40 mg intraartic One-time injection 01/04/2025 01/04/2025 Ended Active Problems Problem Noted Date Diagnosed Date Rotator Cuff Sprain (Capsule) 02/14/2010 Encounters Date Type Department Care Team Description 01/04/2025 1:45 PM EDT Procedure visit [facility] Sports Medicine [address] [place] [address] Camilo Kaur MD Chronic left shoulder pain (Primary Dx); Osteoarthritis of glenohumeral joint, left 11/20/2024 1:45 PM EDT - 11/20/2024 11:59 PM EDT Hospital Encounter [facility] Xray [address] [place] [address] Left shoulder pain, unspecified chronicity Discharge Disposition: Home or Self Care () 11/20/2024 1:45 PM EDT Follow-Up [facility] [address] [place] [address] Danny Reynoso MD Chronic left shoulder pain (Primary Dx) from Last 3 Months Social History Tobacco Use Types Packs/Day Years [...] Care Team (Late st Contact Info) Description 01/29/2025 1:00 PM EST Follow-Up [facility] [address] [phone] Danny Reynoso MD [address] [place] [address] Health Maintenance Due Date Last Done Comments [...] 2024 , 12/07/2019, 03/11/2018, Additional history exists Fall Risk Screening 11/20/2025 11/20/2024 DTaP,Tdap,and Td Vaccines (2 - Td or Tdap) 12/01/2025 12/02/2015, 03/08/2002 RSV Vaccine (60+ years old and patients) (1 - 1-dose 75+ series) 06/21/2027 Pneumococcal Vaccine: 50+ Years Completed 02/20/2020, 03/11/2018 Hepatitis B Vaccines Aged Out No long er eligible based on patient's age to complete this topic Procedures * Due to [place] law, this organization might not be sharing negative HIV tests. Procedure Name Priority Date/Time Associated Diagnosis Comments SD ARTHROCENTESIS ASPIR&/INJ MAJOR JT/BURSA W/US Routine 01/04/2025 1:45 PM EDT Chronic left shoulder pain Osteoarthritis of glenohumeral joint, left MRI SHOULDER LEFT WO CONTRAST Routine 12/04/2024 8:10 PM EDT Chronic left shoulder pain XR SHOULDER 2+ VW LEFT Routine 2:32 PM EDT Left shoulder pain, unspecified chronicity from Last 3 Months Results * Due to [place] law, this organization might not be sharing negative HIV tests. * SD ARTHROCENTESIS ASPIR&/INJ MAJOR JT/BURSA W/US (01/04/2025 1:45 PM EDT) Camilo Nicole MD - 01/04/2025 1:45 PM EDT Camilo Kaur MD 01/04/2025 4:52 PM Large Joint Inj/Asp: L glenohumeral Indication(s): Left shoulder pain Date/Time: 01/04/2025 1:45 PM Performed by: Camilo Kaur MD Authorized by: Camilo Kaur MD Consent: Patient identity confirmed: Name and with patient and Verbally Verbal consent obtained: Yes Written consent obtained: Yes Risk and benefits discussed: Yes Written informed consent was obtained from the patient. Patient states understanding of procedure being performed: Yes Patient's understanding of procedure matches consent: Yes [place] Protocol: Procedure consent matches procedure scheduled: Yes All relevant documents/tests are correctly identified, labeled, and matched to patient: Yes Relevant tests/ Imaging studies available/reviewed: Yes Correct site marked: Yes Required blood products, implants, devices and special equipment available: N/A Immediately prior to the procedure a time out was called: Yes An attending physician was present for the procedure OR the procedure was performed by an Advanced Practice Provider: Yes Procedure Details: Location: shoulder - L glenohumeral Site Prep: Chloraprep Guidance: ultrasound Left Syringe Size:10 mL Needle size: 22 G Approach: posterior Medications administered: 40 mg triamcinolone acetonide 40 mg/mL; 7 mL lidocaine PF 1% (10 mg/mL) Dressing: Band-Aid Post-procedure Details: Patient tolerance: patient tolerated the procedure well with no immediate complications Instructions: post-procedure instructions were reviewed Discharge: patient discharged from clinic in stable condition Comments: PROCEDURE: LEFT Glenohumeral Joint Injection with Ultrasound Guidance Indication: Please refer to my detailed note from today. This patient has shoulder pain necessitating injection at the site of pathology (glenohumeral joint). Glenohumeral joint localization is optimized with use of ultrasound guidance to ensure targeted delivery of medication. The use of direct ultrasound visualization of the needle (rather than a non-guided injection) was required to increase patient safety by excluding inadvertent intramuscular or intratendinous placement and minimizing bleeding by avoiding osteochondral or vascular injury from the needle. Additionally, the increased accuracy of placement may increase clinical effectiveness and will allow higher diagnostic specificity when evaluating effectiveness of this injection. Informed Consent: The procedure, benefits, risks including but not limited to bleeding, infection, nerve damage, non-resolution of symptoms, allergic reaction, postinjection flare, local tissue breakdown (including but not limited to potential for skin depigmentation and/or subcutaneous fat atrophy), systemic effects of corticosteroids (elevation of blood glucose levels, blood pressure, anxiety/insomnia, flushing, adrenal suppression) and alternatives were explained to the patient. The patient verbalized understanding and agreed to the procedure. A time out was done to verify patient identity, procedure to be performed, side and site of procedure, and equipment needed. Physician: Camilo Kaur MD Ultrasound Guided Injection Description: Patient Position: Lateral decubitus with arm in neutral position and supported. Approach: A posterior, lateral to medial, approach was used. Local Anesthesia: 3 mL of 1% lidocaine Injection: The area was prepped and draped in a sterile fashion with Chlorhexidine. The spine of the scapula was palpated. Using a sterile technique with a sterile transducer cover and gel, the glenohumeral joint was visualized under ultrasound with a curvilinear transducer. Using sterile technique, the needle was advanced slowly until its tip was visualized under ultrasound to be in the glenohumeral joint space. 4mL of 1% Lidocaine and 1 mL (40 mg) of Kenalog were injected into the joint and the joint capsule was noted to distend with the fluid. After the needle was withdrawn, the site was covered with a sterile bandage. A permanent ultrasound image has been stored on the US equipment drive. --- Camilo Kaur MD Grave Digger, Sports Medicine/PM&R Department of Orthopedics and Physical Rehabilitation us Camilo Kaur MD IN CLINIC/BEDSIDE ORDER JAREK Final Result * MRI Shoulder Left WO Contrast (12/04/2024 8:10 PM EDT) Anatomical Region Laterality Modality Upper Extremities, Shoulder Left Magn etic Resonance 12/04/2024 7:45 PM EDT Narrative 12/04/2024 9:20 PM EDT [facility] Accession Number: [id number] Patient Name: Ron Klein Date of : 1950 Date of Exam: 12-04-2024 Referring Physician: Danny Reynoso [address] [address] Exam: MR Shoulder (C-) CPT 79841 - Left Room Description: [facility] 1.5 EXAM: MRI LEFT SHOULDER WITHOUT CONTRAST CLINICAL INDICATION: Left shoulder pain. TECHNIQUE: MRI of the left shoulder was performed without intravenous contrast. COMPARISON: Left shoulder MRI 06/13/2022. FINDINGS: CORACOACROMIAL ARCH: ACROMION: Curved undersurface. ACROMIOCLAVICULAR JOINT: Moderate degenerative changes are present, with subchondral marrow edema and cystic changes within the distal clavicle. Attenuation is likely noted at the subchondral surfaces of both clavicle and acromion with capsular edema. CORACOCLAVICULAR LIGAMENTS: Intact. SUBACROMIAL/SUBDELTOID BURSA: Trace fluid. ROTATOR CUFF: SUPRASPINATUS: Moderate tendinosis. No muscle atrophy. INFRASPINATUS: Mild tendinosis. No muscle atrophy. The previously identified foci of calcific tendinitis are no longer present. SUBSCAPULARIS: Mild tendinosis. No muscle atrophy TERES MINOR: Intact tendon. No muscle atrophy LONG BICEPS TENDON: Moderate tendinosis of the intra-articular portion of the tendon. LABRUM: There is no discrete superior labrum tear, with the sublabral recess identified. A sublabral foramen is identified anteriorly-superiorly. GLENOHUMERAL JOINT: There is no acute fracture dislocation. There are small osteophytes of the inferomedial humeral head, with development of a 5 mm transverse focus of high-grade cartilage loss in the superomedial aspect of the head. Traction changes are present in the humeral head at the infraspinatus tendon insertion site. A small amount of joint fluid is present. ROTATOR INTERVAL: The rotator interval fat is partially effaced. DELTOID MUSCLES: Intact. QUADRILATERAL SPACE: No space occupying lesions. IMPRESSION: 1. Rotator cuff tendinosis, moderate in degree involving the supraspinatus tendon, which is slightly more pronounced compared to the prior examination. The previously seen foci of calcific tendinitis are no longer present. 2. Moderate tendinosis of the intra-articular long biceps tendon, which is new compared to the prior examination. 3. Effacement of the rotator interval fat, which can be seen with the clinical diagnosis of adhesive capsulitis. This is relatively unchanged. 4. Moderate acromioclavicular osteoarthrosis, as detailed, which is without significant interval change. 5. Interval development of a 5 mm focus of high-grade cartilage loss of the superomedial humeral head (series 13, image #8). WSN: [id number] Ordering Physician: Danny Reynoso Electronically Signed By: Aleksandar Arrieta MD Procedure Note Provider, Ramona - 12/04/2024 [facility] Accession Number: [id number] Patient Name: Ron Klein Date of : 1950 Date of Exam: 12-04-2024 Referring Physician: Danny Reynoso [address] [address] Exam: MR Shoulder (C-) CPT 37638 - Left Room Description: [facility] 1.5 EXAM: MRI LEFT SHOULDER WITHOUT CONTRAST CLINICAL INDICATION: Left shoulder pain. TECHNIQUE: MRI of the left shoulder was performed without intravenouscontrast. COMPARISON: Left shoulder MRI 06/13/2022. FINDINGS: CORACOACROMIAL ARCH: ACROMION: Curved undersurface. ACROMIOCLAVICULAR JOINT: Moderate degenerative changes are present, with subchondral marrow edema and cystic changes within the distal clavicle. Attenuation is likely noted at the subchondral surfaces of both clavicleand acromion with capsular edema. CORACOCLAVICULAR LIGAMENTS: Intact. SUBACROMIAL/SUBDELTOID BURSA: Trace fluid. ROTATOR CUFF: SUPRASPINATUS: Moderate tendinosis. No muscle atrophy. INFRASPINATUS: Mild tendinosis. No muscle atrophy. The previouslyidentified foci of calcific tendinitis are no longer present. SUBSCAPULARIS: Mild tendinosis. No muscle atrophy TERES MINOR: Intact tendon. No muscle atrophy LONG BICEPS TENDON: Moderate tendinosis of the intra-articular portion ofthe tendon. LABRUM: There is no discrete superior labrum tear, with the sublabralrecess identified. A sublabral foramen is identified anteriorly-superiorly. GLENOHUMERAL JOINT: There is no acute fracture dislocation. There aresmall osteophytes of the inferomedial humeral head, with development of a 5 mm transverse focus of high-grade cartilage loss in the superomedial aspectof the head. Traction changes are present in the humeral head at theinfraspinatus tendon insertion site. A small amount of joint fluid is present. ROTATOR INTERVAL: The rotator interval fat is partially effaced. DELTOID MUSCLES: Intact. QUADRILATERAL SPACE: No space occupying lesions. IMPRESSION: 1. Rotator cuff tendinosis, moderate in degree involving the supraspinatus tendon, which is slightly more pronounced compared to the priorexamination. The previously seen foci of calcific tendinitis are no longer present. 2. Moderate tendinosis of the intra-articular long biceps tendon, which isnew compared to the prior examination. 3. Effacement of the rotator interval fat, which can be seen with theclinical diagnosis of adhesive capsulitis. This is relatively unchanged. 4. Moderate acromioclavicular osteoarthrosis, as detailed, which iswithout significant interval change. 5. Interval development of a 5 mm focus of high-grade cartilage loss ofthe superomedial humeral head (series 13, image #8). WSN: [id number] Ordering Physician: Danny Reynoso Electronically Signed By: Aleksandar Arrieta MD us Danny Reynoso MD IMG MRI PROCEDURES Final Resu lt * XR Shoulder 2+ vw Left (11/20/2024 2:32 PM EDT) Anatomical Region Laterality Modality Upper Extremities, Shoulder Left Comp uted Radiography 11/20/2024 6:04 PM EDT Impressions 11/20/2024 7:07 PM EDT FINDINGS/IMPRESSION: No radiographic findings of acute fracture or dislocation. Previously seen calcification adjacent to greater tuberosity appears to be decreased since prior exam. Mild glenohumeral and acromioclavicular osteoarthritis. Soft tissues unremarkable. If this radiology report contains a blank impression section, it is an incomplete radiology report. Please contact the interpreting radiologist or applicable radiology division as soon as possible to obtain the completed interpretation. Workstation ID: [id number] Narrative 11/20/2024 7:07 PM EDT COMPARISON: 04/08/22 Resulting Agency Comment [id number] Procedure Note Artemio Blackburn MD - 11/20/2024 COMPARISON: 04/08/22 IMPRESSION: FINDINGS/IMPRESSION: No radiographic findings of acute fracture or dislocation. Previously seencalcification adjacent to greater tuberosity appears to be decreased sinceprior exam. Mild glenohumeral and acromioclavicular osteoarthritis. Softtissues unremarkable. If this radiology report contains a blank impression section, it is anincomplete radiology report. Please contact the interpreting radiologistor applicable radiology division as soon as possible to obtain thecompleted interpretation. Workstation ID: [id number] us Danny Reynoso MD IMG XR PROCEDURES Final Resul t from Last 3 Months Insurance [facility] MEDIC[facility] Care Teams High Man Relationship Specialty Start Date End Date Cruzito Cannon [facility] [address] [place] [address] PCP - General Internal Medicine 04/06/22
--- OUTSIDE RECORDS SUMMARY | 2025-01-16 15:57 | XMS_ITS | Encounter Summary ---
Author Organization [facility] Address [address] [place] [address] Phone Care Team Providers Care Digester Capper Name Role Phone Cruzito Cannon MD Primary Care Provider Juan Pablo Andres MD Unavailable Enrique Kerr MD Unavailable Albert Headley MD Unavailable Encounter Details Date Type Department Care Team (Late st Contact Info) Description 10/05/2022 Procedure Pass [facility], [address] [address] Social History Tobacco Use Types Packs/Day Years [...] with a working camera? Not on file Sex and Gender Information Value Date Recorded Sex Assigned at Not on file Legal Sex Male 5:32 PM EST Gender Identity Not on file Sexual Orientation Not on file documented as of this encounter Last Filed Vital Signs Vital Sign Reading Time Taken Comments Blood Pressure - - Pulse - - Temperature - - Respiratory Rate - - Oxygen Saturation - - Inhaled Oxygen Concentration - - Weight 79.4 kg (175 lb) 10/08/2022 12:49 PM EDT Height 177.8 cm (5' 10 ) 10/08/2022 12:49 PM EDT Body Mass Index 25.11 10/08/2022 12:49 PM EDT documented in this encounter Plan of Treatment Upcoming Encounters Date Type Department Care Team (Late st Contact Info) Description 02/16/2025 10:30 AM EST Office Visit [facility] Internal Medicine [address] [place], [place] [phone] Cruzito Cannon MD [address] [place] [address] 07/18/2025 10:00 AM EDT Office Visit [facility] Internal Medicine [address] [place] [address] Cruzito Cannon MD [address] [place], [place] [phone] documented as of this encounter Visit Diagnoses Not on filedocumented in this encounter Additional Health Concerns Infection Onset Date Last Indicated Resolved Time 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 07/01/2022 06/30/2024 1:21 AM EDT Assessment Noted Time PHQ-2 Depression Total Score: 0 05/01/19 10:54 AM EST documented as of this encounter Care Teams Digester Capper Relationship Specialty Start Date End Date Cruzito Cannon MD [address] [place] [address] PCP - General Internal Medicine 02/05/17 Juan Pablo Andres MD [address] [place] [phone] Physical Medicine and Rehabilitation 02/06/20 Enrique Kerr MD [address] [address] [email or web address] Otolaryngology 02/21/20 Albert Headley MD [address] [facility] [address] [address] Cardiology 03/22/20 documented as of this encounter Additional Source Comments The information contained in this document represents components of the legal health record. It is not the complete legal health record.[facility]
--- OUTSIDE RECORDS SUMMARY | 2025-01-16 15:57 | XMS_ITS | Encounter Summary ---
Author Organization [facility] Address [address] [place] [address] Care Team Providers Care Shoes Salesperson Name Role Phone DavisCruzito Primary Care Provider [phone] Reason for Visit * Reason Onset Date Comments PAC- Edgardo-telehealth appt 06/23/2022 Encounter Details Date Type Department Care Team (Late st Contact Info) Description 06/23/2022 Telephone [facility] [address] [place] [phone] Telephone Intake, Staff PAC- Edgardo-telehealth appt Social [...] if possible. Please reach out to patient [phone] documented in this encounter Plan of Treatment Upcoming Encounters Date Type Department Care Team (Late st Contact Info) Description 01/29/2025 1:00 PM EST Follow-Up [facility] [address] [place] [address] Danny Reynoso MD [address] [place] [address] documented as of this encounter Visit Diagnoses Not on filedocumented in this encounter Care Teams Shoes Salesperson Relationship Specialty Start Date End Date Cruzito Cannon [facility] Internal Medicine [address] [place] [phone] PCP - General Internal Medicine 04/06/22 documented as of this encounter
--- OUTSIDE RECORDS SUMMARY | 2025-01-16 15:57 | XMS_ITS | Patient Health Record ---
Author Organization [facility] Address [address] [place] [phone] Care Team Providers Care Scrap Yard Worker Name Role Phone Ever Mark Jr [phone] Reason For Referral No Information Plan Of Treatment No Information
--- OUTSIDE RECORDS SUMMARY | 2025-01-16 15:57 | XMS_ITS | Encounter Summary ---
Author Organization [facility] Address [address] [place] [address] Phone Care Team Providers Care Machine Clothing Man Name Role Phone Cruzito Cannon MD Primary Care Provider Juan Pablo Andres MD Unavailable [phone] Enrique Kerr MD Unavailable Albert Headley MD Unavailable [phone] Encounter Details Date Type Department Care Team (Late Contact Info) Description 07/21/2022 Procedure Pass OR Admitting Dept - [facility] Department [address] [place] [id number] Social History Tobacco Use Types Packs/Day Years [...] Description 02/16/2025 10:30 AM EST Office Visit [facility] Internal Medicine [address] [place] [address] Cruzito Cannon MD [address] [place], [place] [email or web address] 07/18/2025 10:00 AM EDT Office Visit [facility] Internal Medicine [address] [place], [place] [phone] Cruzito Cannon MD [address] [place], [place] [email or web address] documented as of this encounter Visit Diagnoses Not on filedocumented in this encounter Additional Health Concerns Infection Onset Date Last Indicated Resolved Time 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 07/01/2022 06/30/2024 1:21 AM EDT Assessment Noted Time PHQ-2 Depression Total Score: 0 05/01/19 10:54 AM EST documented as of this encounter Care Teams Machine Clothing Man Relationship Specialty Start Date End Date Cruzito Cannon MD [address] [place] [address] [email or web address] PCP - General Internal Medicine 02/05/17 Juan Pablo Andres MD [address] [place] [address] Physical Medicine and Rehabilitation 02/06/20 Enrique Kerr MD [address] [place], [place] [address] [address] [address] [email or web address] Otolaryngology 02/21/20 Albert Headley MD [address] [place], [place] [address] [address] [address] Cardiology 03/22/20 documented as of this encounter Additional Source Comments The information contained in this document represents components of the legal health record. It is not the complete legal health record.[facility]
--- OUTSIDE RECORDS SUMMARY | 2025-01-16 15:57 | XMS_ITS | Continuity of Care Document ---
Author Organization [place] - [facility], [facility] Address [address] [place] [address] Care Team Providers Care Wool Shearer Name Role Phone CELESTE MORENO Primary Care Provider Assessment Encounter Date Assessment Date Assessment LastModified by Organization Details LastModified Time 01/09/2025 01/09/2025 Ron's Osia implant site appears to be well-tolerated and well-healed. There is no signs of acute or chronic inflammation. Patient continues to have chronic uncontrolled migraine with headaches 5 days a week. Furthermore he has chronic neck pain which serves as an origin for his chronic headaches as well. I suspect that this uncontrolled migraine phenomenon is contributing significantly to his sensitivity to the device on the right in the absence of any direct inflammation or irritation around the device. Today we went over the migraine brochure in detail. I recommended that he reacquainted himself with the Heal Your Headache book, where he can learn specifically to identify and eliminate migraine triggers in his diet and lifestyle in an attempt to improve his overall symptomatology and may settle down this sensitivity around the device. We did discuss the possibility of removing the device but we agreed that this would be a premature decision at this point seeing as he has other options available to reduce his sensitivity. Recommended supplementation with vitamin B2, magnesium, and co-Q10 as well. I have sent him another invitation to the portal so he can keep me updated on his progress. I hope that the neck injection this will help to reduce the neck pain as a major trigger for his headache symptoms. [email or web address] Not available 01/09/2025 11:14:34 Plan of Treatment Reminders Order Date Submit Date Provider Last Modified By Organization Details Last Modified Time Details Appointments None record ed. Lab None record ed. Referral None record ed. Procedures None record ed. Surgeries None record ed. Imaging None record ed. Medication Orders None record ed. Patient TargetsNo targets recorded. Patient InstructionsNo instructions recorded. Reason for Referral None Reported. Problems Name Problem SNOMED Code Status Onset Date Resolution Date Notes Provider Name and Address Organization Details Recorded Time Active cochleove stibular M ni re's disease 323274880 Active 2014 Active Meniere's disease, cochleove stibular; Note: Date Diagnosed : 03/27/2014 8:44 AM (386.01) Not Available [facility] 4 02:17:07 Subjectiv e tinnitus 40924272 Active 2014 Subjectiv e tinnitus; Note: Date Diagnosed : 03/27/2014 8:42 AM (388.31) Not Available [facility] 4 02:17:03 Migraine variants 805950623 Active 2014 Migraine variant; Note: Date Diagnosed : 03/27/2014 8:42 AM (346.20) Not Available [facility] 4 02:17:53 Allergic rhinitis 74416173 Active 2014 Allergic rhinitis: Due to other allergen; Note: Date Diagnosed : 05/16/2014 12:01 PM (477.8) Not Available [facility] 4 02:17:30 Vertigo of central origin NOS Active 2015 Vertigo of central origin, unspecifi ed ear; Note: Changed from H81.41 to H81.49 ( 7 1:24 PM) , Date Diagnosed : 06/11/2015 9:19 AM (H81.41) [mapped from ICD9 code: 386.2] Not Available [facility] 4 02:17:30 Dizziness and giddiness 900103509 Active 2015 Dizziness ; Note: Date Diagnosed : 03/27/2014 8:42 AM (780.4) ; Start Date : 5 Dizzine ss and giddiness ; Note: Date Diagnosed : 06/11/2015 9:19 AM (R42) [mapped from ICD9 code: 780.4] Not Available [facility] 4 02:17:05 Seasonal allergic rhinitis 717798168 Active 2015 Other seasonal allergic rhinitis; Note: Date Diagnosed : 06/11/2015 9:19 AM (J30.2) [mapped from ICD9 code: 477.8] Not Available [facility] 4 02:17:26 Tinnitus of right ear 94642247784 08 Active 2015 Tinnitus, right ear; Note: Date Diagnosed : 06/11/2015 9:19 AM (H93.11) [mapped from ICD9 code: 388.31] Not Available [facility] 4 02:17:00 Migraine 68870724 Active 2015 Other migraine, not intractab le, without status migrainos us; Note: Date Diagnosed : 06/11/2015 9:19 AM (G43.809) [mapped from ICD9 code: 346.20] Not Available [facility] 4 02:17:35 Sensorine ural hearing loss 42967502 Active 2015 Sensorine ural hearing loss, unilatera l, right ear, with unrestric jesu hearing on the contralat eral side; Note: Date Diagnosed : 10/21/2015 1:13 PM (H90.41) Not Available [facility] 4 02:17:31 Tinnitus of left ear 11518990631 06 Active 2016 Tinnitus, left ear; Note: Date Diagnosed : 04/30/2016 12:53 PM (H93.12) Not Available [facility] 4 02:17:46 Sensorine ural hearing loss of bilateral ears 316957893 Active 2016 Sensorine ural hearing loss, bilateral ; Note: Date Diagnosed : 08/28/2016 12:20 PM (H90.3) Sensori neural hearing loss, bilateral ; Note: Date Diagnosed : 07/02/2015 1:52 PM (H90.3) ; Start Date : 6 Not Available [facility] 4 02:17:11 M ni re's disease 50179344 Active 2016 Meniere's disease, right ear; Note: Date Diagnosed : 06/11/2015 9:19 AM (H81.01) [mapped from ICD9 code: 386.01] ; Start Date : 6 Meniere 's disease, bilateral ; Note: Date Diagnosed : 09/03/2016 1:23 PM (H81.03) Not Available [facility] 4 02:17:05 Bilateral temporoma ndibular joint pain 87255109514 368828 Active 2017 Arthralgi a of bilateral temporoma ndibular joint; Note: Date Diagnosed : 07/30/2017 9:16 AM (M26.623) Not Available [facility] 4 02:17:25 Otalgia of right ear 3778734239 Active 2017 Otalgia, right ear; Note: Date Diagnosed : 07/30/2017 9:16 AM (H92.01) Not Available [facility] 4 02:17:17 Referred otalgia 76946954 Active 2017 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; Note: Date Diagnosed : 02/09/2018 3:38 PM (388.72) Not Available [facility] 4 02:18:00 Otalgia of left ear 2286427134 Active 2017 Otalgia, left ear; Note: Date Diagnosed : 02/09/2018 3:58 PM (H92.02) Not Available [facility] 4 02:17:05 Impacted cerumen in left ear 47760626535 30228 Active 2017 Impacted cerumen, left ear; Note: Date Diagnosed : 02/09/2018 3:38 PM (H61.22) Not Available [facility] 4 02:17:31 Abnormal auditory perceptio n 92347458 Active 2017 Other abnormal auditory perceptio ns, left ear; Note: Date Diagnosed : 02/09/2018 3:58 PM (H93.292) Not Available [facility] 4 02:17:42 Neck pain 46188338 Active 2019 Cervicalg ia; Note: Date Diagnosed : 04/06/2019 11:43 AM (M54.2) SHARLENE WEBSTER MD [address] [place] [address], [facility] [place], [phone] , [facility] - [facility] 5 11:11:24 Follow-up visit Active 2019 Encounter for follow-up examinati on after completed treatment for condition s other than malignant neoplasm; Note: Date Diagnosed : 05/12/2019 3:39 PM (Z09) Medical surveilla nce following completed treatment ; Note: Date Diagnosed : 12/13/2015 12:59 PM (Z09) ; Start Date : 6 Not Available [facility] 4 02:16:53 Sudden idiopathi c hearing loss 233686570 Active 2020 Sudden idiopathi c hearing loss, left ear; Note: Date Diagnosed : 10/22/2020 5:03 PM (H91.22) Not Available [facility] 4 02:16:55 Bilateral tinnitus 79554245588 02 Active 2021 Tinnitus, bilateral ; Note: Date Diagnosed : 06/10/2021 2:28 PM (H93.13) Not Available [facility] 4 02:16:58 Vertigo of central origin 40433126 Active 2021 Vertigo of central origin; Note: Date Diagnosed : 03/27/2014 8:42 AM (386.2) ; Start Date : 5 Vertigo of central origin; Note: Date Diagnosed : 06/10/2021 2:24 PM (H81.4) Not Available [facility] 4 02:16:58 Dysfuncti on of eustachia n tube 91048118 Active 2023 SHARLENE WEBSTER MD [address] [place] [address],[place] [address], [place], [address] , [place] - [facility] 4 16:36:49 Atypical facial pain 24131204 Active 2024 MIAN CHRISTENSEN MD [address] [place] [address],[place] [address], [place], [address] , [place] - [facility] 5 11:48:35 Dysphagia 25623821 Active 2024 SHARLENE WEBSTER MD [address] [place] [address],[place] [address] [place], [address] , [place] [facility] 5 13:10:34 Gastric reflux 209535792 Active 2024 MIAN CHRISTENSEN MD [address] [facility],[place] [address], [facility] [place], [address] , [place] - [facility] 5 14:19:14 Oropharyn geal dysphagia 79379624 Active 2024 MIAN CHRISTENSEN MD [address] [facility],[place] [address], [facility] [place], [phone] , [place] - [facility] 5 14:19:25 Notes:Ulcer of nose (septum) (478.19) CMS Risk: [...] Name and Address Organization Details Recorded Time 08/15/19 25 Fiberoptic Laryngoscopy (Comprehensive) completed MIAN CHRISTENSEN MD [address] [facility],[address], [address], [facility] - [facility] 08/16/2024 07:07:22 06/03/19 25 IMPLANTATION OF ELECTROMAGNETIC BONE CONDUCTION HEARING DEVICE IN TEMPORAL BONE (SURG) completed SHARLENE WEBSTER MD [address] [place] [address],[address], [address], [facility] - [facility] 01/08/2025 14:04:54 05/05/19 25 Telehealth completed SHARLENE WEBSTER MD [address] [place] [address],[address], [address], [facility] - [facility] 05/05/2024 14:53:58 01/31/20 24 Comp Audio with Tymps - 95057 & 13568 completed JOVAN NIETO [address] [facility],[address], [address], [place] - [facility] 01/31/2024 15:46:41 Imaging Results None recorded. Procedure Notes None recorded. Medical Equipment Implant [employer] Issuing Agency Serial Number Lot Number Status Provider Name and Address Organization Details Recorded Time Osia implant FDA [id number], [id number] Y SHARLENE WEBSTER MD [address] [place] [address], [place], [address], [place] - [facility] 06/02/2024 14:01:29 Allergies Allergen ID Allergen Name Allergen Category Reaction Reaction Severity Criticality Documentation Date Start Date Code Code System Note Provider Name and Address Organization Details Recorded Time 32453 Bactrim medicatio n other Not available Not available 07/20/2023 96819 9 RxNorm React ion: unkno wn, unspe cifie d;; Not Available [facility] 00:51:30 Medications Name Sig Start Date Stop Date Status Note LastModified by Organization Details LastModified Time prednison e 10 mg tablet by mouth 06/10 completed Medicati on ID: [id number] D uration Value: 14 Prescri bed By [...] 1 tab by mouth for 3 days 07/13 completed Not Available Not Available Not Available Levoxyl 75 mcg tablet TAKE 1 TABLET BY MOUTH EVERY MORNING active Not Available Not Available No t Available omeprazol e 40 mg capsule,d elayed release 01/30 completed Medicati on ID: [id number] B rand Name: omeprazo le Send Method: E-Prescr ibed Sub s Allowed: subs OK Medic ationGen ericName : omeprazo le Not Available Not Available Not Available Zofran 8 mg tablet 1 tablet by mouth 12/15 [place]: [id number] Pr escribed By Name: Lacho Monzon nd [...] mg capsule 02/05 completed Medicati on ID: [id number] D uration Value: 30 Brand Name: tamsulos in Send Method: E-Prescr ibed Sub s Allowed: subs OK Medic ationGen ericName : tamsulos in Not Available Not Available Not Available meclizine 25 mg tablet 1 tablet by mouth 12/15 completed Medicati on ID: [id number] Pr escribed By Name: Lacho Monzon nd Name: meclizin e Send Method: E-Prescr ibed Sub s Allowed: subs OK Medic ationGen ericName : meclizin e Not Available Not Available Not Available nortripty line 10 mg capsule 1 capsule by mouth 07/30 completed Medicati on ID: [id number] P rescribe d By Name: Lacho Monzon [...] mg capsule 06/10 completed Medicati on ID: [id number] D uration Value: 30 Brand Name: gabapent [...] as directed 12/15 completed Medicati on ID: [id number] R lissette: () Brand Name: Dyazide Send Method: E-Prescr ibed Sub s Allowed: subs OK Medic ationGen ericName : Dyazide Not Available Not Available Not Available albuterol sulfate HFA 90 mcg/actua tion aerosol inhaler 03/30 completed Medicati on ID: [id number] B rand Name: albutero l sulfate Send Method: E-Prescr ibed Sub s Allowed: subs OK Medic ationGen ericName : albutero l sulfate Not Available Not Available Not Available [place] 5 mg-325 mg tablet 1-2 tablet by mouth 01/30 completed Medicati on ID: [id number] D uration Value: 7 Prescri bed By Name: Lacho Monzon nd Name: [place] Se nd Method: E-Prescr ibed Sub s Allowed: subs OK Medic ationGen ericName : [place] Not Available Not Available Not Available fluticaso ne propionat e 50 mcg/actua tion nasal spray,aicha pension 03/30 completed Medicati on ID: [id number] B rand Name: fluticas one propiona te Send Method: E-Prescr ibed Sub s Allowed: subs OK Medic ationGen ericName : fluticas one propiona te Not Available Not Available Not Available oxycodone 5 mg tablet Take 1 tablet every 4-6 hours by oral route as needed for 3 days, for pain. 07/13 completed Not Available Not Available Not Available rosuvasta tin 5 mg tablet TAKE 1 TABLET BY MOUTH ONCE DAILY 08/14 completed Not Available Not Available Not Available bupropion HCl XL 150 mg 24 hr tablet, extended release TAKE 1 TABLET BY MOUTH EVERY DAY 03/30 completed Not Available Not Available Not Available alfuzosin ER 10 mg tablet,ex tended release 24 hr 02/05 completed Medicati on ID: [id number] B rand Name: jose n Send Method: E-Prescr ibed Sub s Allowed: subs OK Medic ationGen ericName : alfuzosi n Not Available Not Available Not Available oxycodone 10 mg tablet PLEASE SEE ATTACHED FOR DETAILED DIRECTIO NS 07/13 completed Not Available Not Available Not Available Paxlovid 300 mg (150 mg x 2)-100 mg tablets in a dose pack 01/30 completed Medicati on ID: [id number] B rand Name: Paxlovid (EUA) Se nd Method: E-Prescr ibed Sub s Allowed: subs OK Medic ationGen ericName : Paxlovid (EUA) Not Available Not Available Not Available Vitals Date Recorded Body height Body weight Provider Name and Address Organization Details Last Updated DateTime 01/09/2025 179.07 cm 75020.63 g Mary Lou Hendricks [place] - [facility] 01/09/2025 10:33:07 Social History None recorded. Functional Status None recorded. Mental Status None recorded. Family History Nothing Reported. Medical History Condition Response Headaches Y Thyroid Problems Y High Cholesterol Y GERD/Reflux Y Past Encounters Encounter ID Performer Location Encounter Start Date Encounter Closed Date Diagnosis/Indication Diagnosis SNOMED-CT Code Diagnosis ICD10 Code Diagnosis IMO Codes Diagnosis Note [id number] SHARLENE WEBSTER MD [facility] [address] [address] 01/09/2025 10:27:42 01/09/2025 11:13:34 Migraine 55704262 G43.809 History of tissue/organ recipient 113539740 Z96.29 5164117 Otalgia of right ear 310 8113392 H92.01 Neck pain 27644656 M54.2 04487 Health Concerns Section Related Observation LastModified by Organization Detai ls LastModified Time None Recorded Concern Status LastModified by Organization Details LastModified Time None Recorded Payers Encounter Date Sequence Insurance Name Policy Number Policy Manrique Covered Member ID Manrique Member ID Guarantor Name 01/09/2025 1 [place] [employer] Ron Klein [id number] Ron Jarquin Ernie 01/09/2025 2 [place] [id number] Ron Klein [id number] Ron Milka Ernie Notes Date Note Type Note Provider Name and Address Organization Details Recorded Time 01/09/2025 text/html 74-year-old male with underlying chronic migraine phenomenon and right single-sided deafness. He had a right [place] Attract implant in the past which was removed in April 2019. He underwent placement of a right Osia bone-conduction implant on 06/02/2024. Patient has been experiencing significant persistent postoperative pain at the operative site regardless of whether or not he is using the external processor. Patient contacted the office to discuss implant removal.Patient has known history of migraine that we have discussed in the past. He is currently getting headaches 5 days a week. He has been dealing with some chronic neck pain recently. There is no specific nerve that is being pinched so he is not an operative candidate. He is going to see pain management tomorrow for some injections. Patient does notice chronic sensitivity to various stimulus including light, sound, motion etc. SHARLENE WEBSTER MD [address] [place] [address], [address], [place] - [facility] 01/09/2025 11:14:49
--- OUTSIDE RECORDS SUMMARY | 2025-01-16 15:57 | XMS_ITS | Clinical Summary ---
Author Organization [facility] Address [address] [place] [address] Phone Care Team Providers Care Steel Roller Name Role Phone Cruzito Cannon MD Primary Care Provider [phone] Juan Pablo Andres MD Unavailable Enrique Kerr MD Unavailable [phone] Albert Headley MD Unavailable Allergies Active Allergy Reactions Criticality Noted Date Comments Atorvastatin Other (See Comments) 05/20/2020 Stomach upset and headaches nauseau Constipated . Codeine Nausea And Vomiting 03/21/2020 Hydromorphone Other (See Comments) 03/31/2021 Made headache worse Doxycycline 03/21/2020 Other Reaction(s): OTHER Flu-like symptoms Gabapentin Other (See Comments) 08/06/2022 Vail spacey Hydrochlorothiazide Other (See Comments) 02/05/2017 [place] spacey Meloxicam Diarrhea Medium 02/09/2023 And upset stomach Nortriptyline Other (See Comments) 02/05/2017 [place] spacey Omeprazole Headaches,Pain Low 03/14/2024 Pain in abdomen Other Nausea and/or Vomiting 02/05/2017 Narcotic-felt flushed also Other Reaction(s): Seasonal allergic rhinitis Rosuvastatin Other (See Comments) 08/24/2023 Muscle weakness isabella in legs Loose watery stool Sulfamethoxazole-Trimethopr im Other (See Comments) 06/27/2024 Other Reaction(s): Hot flushes, other Bactrim Alfuzosin Other (See Comments) 01/07/2022 Nauseau, spacy and felt sick Medications Medication-Free Text Take 1 capsule by mouth daily. K2 recommended by diesel fleet mechanic Active multivitamins capsule Take 1 capsule by mouth once a week. Pure O.N.E brand With CoQ10 10% of daily serving Active LORazepam (ATIVAN) 1 MG tablet Take 0.5 tablets by mouth nightly at bedtime as needed (for restless legs). 023 Active ibuprofen (ADVIL,MOTRIN) 200 MG tablet Take 800 mg by mouth 2 (two) times a week. Up to three times weekly Active oxyCODONE HCl 10 mg TabIndications:In creased frequency of headaches,Cervica lgia,Neck pain Take 1 tablet (10 mg total) by mouth every 6 (six) hours as needed. Partial fill ok 30 tablet Active Additional Information Patient not taking.Reported on 12/20/2024 albuterol 90 mcg/actuation inhalerIndication s:Acute non-recurrent maxillary sinusitis,Acute bronchospasm Inhale 2 puffs into the lungs every 6 (six) hours as needed for wheezing. 8 g 1 Active Additional Information Patient not taking.Reported on 12/20/2024 fluticasone propionate (FLONASE) 50 mcg/actuation nasal sprayIndications: Allergic rhinitis, unspecified seasonality, unspecified trigger 2 sprays by Nasal route daily. 16 g 12 025 Active Additional Information Patient taking differently:2 spray NasalDaily as needed, Reported on 12/20/2024 LEVOXYL 75 mcg tabletIndications :Acquired hypothyroidism TAKE ONE TABLET BY MOUTH EVERY MORNING 90 tablet 1 Active pantoprazole (PROTONIX) 20 MG tablet Take 20 mg by mouth every morning. Active oxyCODONE HCl 10 mg TabIndications:Ce rvicalgia Take 1 tablet (10 mg total) by mouth every 6 (six) hours as needed (neck pain). 28 tablet Active famotidine (PEPCID) 40 MG tablet Take 40 mg by mouth every evening. 025 2024 Discontinued rosuvastatin (CRESTOR) 5 MG tabletIndications :ASCVD (arteriosclerotic cardiovascular disease) Take 1 tablet (5 mg total) by mouth daily. 90 tablet 3 025 2024 Discontinued Active Problems Problem Noted Date Diagnosed Date [...] cover. Patient should pursue in the pharmacy [employer] in September. Looking through his history I [...] Encounters Date Type Department Care Team Description 01/01/2025 Telephone [facility] Internal Medicine [address] [place] [address] Cruzito Cannon MD Tramadol 12/20/2024 10:33 AM EDT - 12/20/2024 11:59 PM EDT Hospital Encounter [facility] [place] [address] [place] [address] Cruzito Cannon MD Discharge Disposition: Home or Self Care 12/20/2024 9:30 AM EDT Office Visit [facility] Internal Medicine [address] [place] [address] Cruzito Cannon MD Epigastric pain (Primary Dx); Hypothyroidism, unspecified type; Gastritis without bleeding, unspecified chronicity, unspecified gastritis type 12/20/2024 Orders Only [facility] [address] [facility] [place] [place] [address] Provider, MD Corry 12/19/2024 Telephone [facility] Internal Medicine 40 [facility] [place] [address] Cruzito Cannon MD Medication Question 11/08/2024 10:30 AM EDT Office Visit [facility] Internal [facility] 40 [facility] [place] [address] Cruzito Cannon MD ASCVD (arteriosclerotic cardiovascular disease) (Primary Dx); Cervicalgia; Increased frequency of headaches; Neck pain; Pure hypercholesterolemia; Hypothyroidism, unspecified type; Impaired fasting blood sugar from Last 3 Months Immunizations Immunization Administration Dates Next Due COVID-19 (Pre) Moderna Vaccine, mRNA, PF 1 03/17/2020 COVID-19 (Pre) Pfizer Vaccine, mRNA, PF ,06/01/2020 Influenza High-Dose Quadrivalent Preservative Fr ee IM 12/24/2020 Influenza High-Dose Trivalent Preservative Free IM 03/11/2018 Influenza Quadrivalent Preservative Free IM 05/2014 Influenza Recombinant Jimmie valent Preservative Free IM [...] Sign Reading Time Taken Comments Blood Pressure 104/64 12/20/2024 9:49 AM EDT Pulse 74 12/20/2024 9:49 AM EDT Temperature 36.8 C (98.3 F) 12/20/2024 9:49 AM EDT Respiratory Rate 16 09/28/2024 1:14 PM EDT Oxygen Saturation 98% 12/20/2024 9:49 AM EDT Inhaled Oxygen Concentration - - Weight 80.5 kg (177 lb 6.4 oz) 12/20/2024 9:49 A M EDT Height 179 cm (5' 10.47 ) 12/20/2024 9:49 AM EDT Body Mass Index 25.11 12/20/2024 9:49 AM EDT Plan of Treatment Upcoming Encounters Date Type Department Care Team (Late st Contact Info) Description 02/16/2025 10:30 AM EST Office Visit [facility] [place] [facility] [address] [place] [address] Cruzito Cannon MD 40 [place] [address] 07/18/2025 10:00 AM EDT Office Visit [facility] [place] [facility] [address] [place] [address] Cruzito Cannon MD [address] [place] [address] [email or web address] Health Maintenance Due Date Last Done Comments COLOGUARD 1997 FIT TEST 1997 FOBT 1997 SIGMOIDOSCOPY 1997 VIRTUAL COLONOSCOPY 1997 ZOSTER VACCINES (1 of 2) 2002 INFLUENZA VACCINE (#1) 2024 , 12/07/2019, 03/11/2018, Additional history exists COVID-19 VACCINE ( season) 2024 01/15/2021, 06/22/2020, 06/01/2020 DEPRESSION SCREENING 07/14/2025 07/14/2024 Adult Td,Tdap Booster 12/01/2025 12/02/2015, 003 TSH LEVEL 12/20/2025 12/20/2024, 04/0 05/2024, 10/15/2023, Additional history exists RSV VACCINE (1 - 1-dose 75+ series) 06/21/2027 LIPID PANEL 12/20/2029 12/20/2024, 03/2 09/2024, 12/21/2023, Additional history exists COLONOSCOPY 12/20/2034 12/20/2024, 03/14/2015 COLORECTAL CANCER SCREENING 12/20/2034 HEPATITIS C SCREENING Completed 07/21/2019 PNEUMOCOCCAL VACCINES (50+ years) Completed 02/20/2020, 03/11/2018 SMOKING STATUS SCREENING (Once After 26 Yrs) Completed 12/20/2024 HEPATITIS A VACCINES Aged Out No long er eligible based on patient's age to complete this topic HIB VACCINES Aged Out No longer eligi ble based on patient's age to complete this topic IPV VACCINES Aged Out No longer eligi ble based on patient's age to complete this topic MENINGOCOCCAL VACCINES (ACWY) Aged Out No longer eligible based on patient's age to complete this topic MENINGOCOCCAL VACCINES (B) Aged Out N o longer eligible based on patient's age to complete this topic Medical Devices Implanted Type Area Perfusionist Device Identifier Shelf Expiration Date Model / Serial / Lot Cochlear Implant Procedures Procedure Name Priority Date/Time Associated Diagnosis Comments LIPID PANEL Routine 12/20/2024 10:34 AM EDT Pure hypercholesterolemia COMPREHENSIVE METABOLIC PANEL (CMP) Routine 12/20/2024 10:34 AM EDT Pure hypercholesterolemia Impaired fasting blood sugar HEMOGLOBIN A1C Routine 12/20/2024 10:34 AM EDT Impaired fasting blood sugar CBC AND DIFFERENTIAL Routine 12/20/2024 10:34 AM EDT Increased frequency of headaches TSH WITH REFLEX Routine 12/20/2024 10:34 AM EDT Hypothyroidism, unspecified type OUTSIDE PATHOLOGY Routine 12/20/2024 9:2 7 AM EDT HM COLONOSCOPY FOR RESULT ENTRY ONLY Routine 12/20/2024 9:26 AM EDT OUTSIDE HEPATITIS C VIRUS SCREENING Routine 07/21/2019 from Last 3 Months or Most Recently Relevant to Health Maintenance Results * (ABNORMAL) Comprehensive metabolic panel (12/20/2024 10:34 AM EDT) SODIUM 140 133 - 146 mmol/L [facility] POTASSIUM 4.6 3.3 - 5.1 mmol/L [facility] CHLORIDE 104 96 - 108 mmol/L [facility] CO2 24 21 - 35 mmol/L [facility] BUN 15 6 - 19 mg/dL [facility] CREATININE 1.00 0.5 - 1.5 mg/dL [facility] GLUCOSE 110(H) 70 - 99 mg/dL [facility] ALBUMIN 4.5 3.9 - 4.8 g/dL [facility] TOTAL PROTEIN 7.4 6.5 - 8.0 g/dL [facility] CALCIUM 9.6 8.4 - 10.3 mg/dL [facility] ALKALINE PHOSPHATASE 77 39 - 117 U/L [facility] TOTAL BILIRUBIN 0.8 0.0 - 1.2 mg/dL [facility] AST 19 0 - 37 U/L [facility] ALT 9 0 - 40 U/L [facility] GLOBULIN 2.9 1 - 4.8 g/dL [facility] EGFR 80 >59 mL/min/1.7 3m2 [facility] Comment:Estimated glomerular filtration rate calculated using the CKD-EPI refit equation. ANION GAP 17 10 - 20 mmol/L [facility] Blood 12/20/2024 10:3 4 AM EDT 12/20/2024 10:37 AM EDT us Cruzito Cannon MD LAB BLOOD BKR ORDERABLES Gisela l Result [address] [address] * TSH with reflex (12/20/2024 10:34 AM EDT) TSH 2.18 0.27 - 4.20 uIU/mL [facility] Blood 12/20/2024 10:3 4 AM EDT 12/20/2024 10:37 AM EDT us Cruzito Cannon MD LAB BLOOD BKR ORDERABLES Gisela l Result Performing Organization Address [facility] Co de Phone Number [address] [address] * (ABNORMAL) CBC and differential (12/20/2024 10:34 AM EDT) WBC 4.80 4.00 - 11.00 K/uL [facility] RBC 4.33(L) 4.50 - 5.90 M/uL [facility] HGB 14.3 13.5 - 17.5 g/dL [facility] HCT 42.4 41.0 - 53.0 % [facility] PLT 214 150 - 450 K/uL [facility] MCV 97.9 80.0 - 100.0 fL [facility] MCH 33.0(H) 27.0 - 31.0 pg [facility] MCHC 33.7 32.0 - 36.0 g/dL [facility] RDW 13.3 11.5 - 14.5 % [facility] MPV 11.1 8.4 - 12.0 fL [facility] NRBC 0.00 0.00 /100 WBCs [facility] ABSOLUTE NRBC 0.00 0.00 K/uL [facility] DIFF METHOD Auto [facility] NEUTS 50.4 48.0 - 76.0 % [facility] LYMPHS 34.4 18.0 - 41.0 % [facility] MONOS 10.2 4.0 - 11.0 % [facility] EOS 3.8 0.0 - 5.0 % [facility] BASOS 1.0 0.0 - 1.5 % [facility] Granulocytes, immature (%) 0.2 0.0 - 0.9 % [facility] ABSOLUTE NEUTS 2.42 1.92 - 7.60 K/uL [facility] ABSOLUTE LYMPHS 1.65 0.72 - 4.10 K/uL [facility] ABSOLUTE MONOS 0.49 0.16 - 1.10 K/uL [facility] ABSOLUTE EOS 0.18 0.00 - 0.50 K/uL [facility] ABSOLUTE BASOS 0.05 0.00 - 0.15 K/uL [facility] Granulocytes, immature 0.01 0.00 - 0.09 K/uL [facility] Blood 12/20/2024 10:3 4 AM EDT 12/20/2024 10:37 AM EDT us Cruzito Cannon MD LAB BLOOD BKR ORDERABLES Gisela l Result [facility] [address] [place] [address] * Hemoglobin A1c (12/20/2024 10:34 AM EDT) HEMOGLOBIN A1C 5.6 4.3 - 5.8 % [facility] Blood 12/20/2024 10:3 4 AM EDT 12/20/2024 10:37 AM EDT us Cruzito Cannon MD LAB BLOOD BKR ORDERABLES Gisela l Result Performing Organization Address [facility]/ZIP Co de Phone Number [address] [address] * (ABNORMAL) Lipid panel (12/20/2024 10:34 AM EDT) HDL 72 mg/dL [facility] Comment: Interpretation <40 mg/dL: Low HDL cholesterol (major risk factor for CHD) Greater than or equal to 60 mg/dL: High HDL cholesterol ( negative risk factor for CHD) HDL - cholesterol is affected by a number of factors, e.g. smoking, excerise, hormones, sex and age. CHOLESTEROL 217 0 - 240 mg/dL [facility] TRIGLYCERIDES 94 30 - 160 mg/dL [facility] LDL 126 50 - 129 mg/dL [facility] Comment: LDL levels in terms of risk for coronary heart disease: <100 mg/dL: Optimal 100-129 mg/dL: Near or above optimal 130-159 mg/dL: Borderline high 160-189 mg/dL: High >190 mg/dL: Very High CARDIAC RISK RATIO 3.0(L) 3.4 - 5.0 C [facility] Blood 12/20/2024 10:3 4 AM EDT 12/20/2024 10:38 AM EDT Cruzito Cannon MD LAB BLOOD BKR ORDERABLES Gisela l Result Performing Organization Address [facility]/ZIP Co de Phone Number [address] [address] * Outside Pathology (12/20/2024 9:27 AM EDT) Historical Provider PATHOLOGY ORDERABLES Gisela l Result * HM COLONOSCOPY FOR RESULT ENTRY ONLY (12/20/2024 9:26 AM EDT) Historical Provider HEALTH MAINTENANCE Final Result * Outside Hepatitis C Virus Screening (07/21/2019) Hepatitis C Screening - External Neg us Historical Provider LAB BLOOD ORDERABLES Gisela l Result from Last 3 Months or Most Recently Relevant to Health Maintenance Insurance [employer] MEDEX SUPPLEMENT MEDICARE PART A & B [employer] MED[employer] SUPPLEMENT MEDICARE PART A & B [employer] MED[employer] SUPPLEMENT MEDICARE PART A & B [employer] MEDEX SUPPLEMENT MEDICARE PART A & B [employer] MED[employer] SUPPLEMENT MEDICARE PART A & B [employer] MED[employer] SUPPLEMENT MEDICARE PART A & B Advance Directives For more information, please contact: [phone] (9AM - 5PM [facility], Wednesday-Wednesday) * Full Code (Latest Code Status on File) Date Activated Date Inactivated Comments 07/21/2022 12:29 PM Question Answer Comments Code Status Confirmed With: Patient Care Teams Steel Roller Relationship Specialty Start Date End Date Cruzito Cannon MD [address] [place] [address] [email or web address] PCP - General Internal Medicine 02/05/17 Juan Pablo Andres MD [address] [place] [address] Physical Medicine and Rehabilitation 02/06/20 Enrique Kerr MD [facility] Rosmery Stephenson [address] [address] [email or web address] 02/21/20 Albert Headley MD [facility] [address] [address] Cardiology 03/22/20 Additional Source Comments The information contained in this document represents components of the legal health record. It is not the complete legal health record.[facility]
--- OUTSIDE RECORDS SUMMARY | 2025-01-16 15:57 | XMS_ITS | Encounter Summary ---
Author Organization [facility] Address [address] [place] [address] Phone Care Team Providers Care Air Transportation Provider Name Role Phone Cruzito Cannon MD Primary Care Provider Juan Pablo Andres MD Unavailable Enrique Kerr MD Unavailable [phone] Albert Headley MD Unavailable [phone] Encounter Details Date Type Department Care Team (Late Contact Info) Description 12/16/2018 Procedure Pass [facility] [address] [place] [address] Social History Tobacco Use Types Packs/Day Years [...] 02/16/2025 10:30 AM EST Office Visit [facility] [place] [facility] Internal Medicine [address] [place], [place] [phone] Cruzito Cannon MD [address] [place], [place] [phone] 07/18/2025 10:00 AM EDT Office Visit [facility] Internal Medicine [address] [place] [address] Cruzito Cannon MD [address] [place] [address] documented as of this encounter Visit Diagnoses [...] documented as of this encounter Care Teams Air Transportation Provider Relationship Specialty Start Date End Date Cruzito Cannon MD [address] [place] [address] PCP - General Internal Medicine 02/05/17 Juan Pablo Andres MD [address] [place] [address] Physical Medicine and Rehabilitation 02/06/20 Enrique Kerr MD [address] [place] [address] [email or web address] 02/21/20 Albert Headley MD 100 [facility] 100 [place] [address] Cardiology 03/22/20 documented as of this encounter Additional Source Comments The information contained in this document represents components of the legal health record. It is not the complete legal health record.[facility]
--- OUTSIDE RECORDS SUMMARY | 2025-01-16 15:57 | XMS_ITS | Encounter Summary ---
Author Organization [facility] Address [address] [place] [address] Phone Care Team Providers Care Bodily Injury Adjuster Name Role Phone Cruzito Cannon MD Primary Care Provider [phone] Juan Pablo Andres MD Unavailable [phone] Enrique Kerr MD Unavailable Albert Headley MD Unavailable [phone] Encounter Details Date Type Department Care Team (Late st Contact Info) Description 02/05/2021 Procedure Pass [facility], Ct Scan - [address] [phone] Social History Tobacco Use Types Packs/Day Years [...] Description 02/16/2025 10:30 AM EST Office Visit [facility] Internal Medicine [address] [place], [place] [phone] Cruzito Cannon MD [address] [place], [place] [phone] [email or web address] 07/18/2025 10:00 AM EDT Office Visit [facility] Internal Medicine [address] [place], [place] [phone] Cruzito Cannon MD [address] [place], [place] [phone] [email or web address] documented as of this encounter Visit Diagnoses [...] documented as of this encounter Care Teams Bodily Injury Adjuster Relationship Specialty Start Date End Date Cruzito Cannon MD [address] [place] [address] [email or web address] PCP - General Internal Medicine 02/05/17 Juan Pablo Andres MD [address] [place] [address] Physical Medicine and Rehabilitation 02/06/20 Enrique Kerr MD [facility] Rosmery Stephenson [address] [address] [email or web address] Otolaryngology 02/21/20 Albert Headley MD 100 Rosmery Stephenson [place] [address] [place] [address] Cardiology 03/22/20 documented as of this encounter Additional Source Comments The information contained in this document represents components of the legal health record. It is not the complete legal health record.[facility]
--- OUTSIDE RECORDS SUMMARY | 2025-01-16 15:57 | XMS_ITS | Encounter Summary ---
Author Organization [facility] Address [address] [place] [address] Phone Care Team Providers Care Felt Cementer Name Role Phone Cruzito Cannon MD Primary Care Provider Juan Pablo Andres MD Unavailable [phone] Enrique Kerr MD Unavailable Albert Headley MD Unavailable Encounter Details Date Type Department Care Team (Late Contact Info) Description 03/08/2021 Procedure Pass [facility] [address] [place] [phone] Social History Tobacco Use Types Packs/Day Years [...] 02/16/2025 10:30 AM EST Office Visit [facility] Internal Medicine [address] [place], [place] [phone] Cruzito Cannon MD [address] [place], [place] [phone] 07/18/2025 10:00 AM EDT Office Visit [facility] Internal Medicine [address] [place] [address] Cruzito Cannon MD [address] [place] [address] [email or web address] documented as of this [...] documented as of this encounter Care Teams Felt Cementer Relationship Specialty Start Date End Date Cruzito Cannon MD [address] [place] [address] [email or web address] PCP - General Internal Medicine 02/05/17 Juan Pablo Andres MD [address] [place] [address] Physical Medicine and Rehabilitation 02/06/20 Enrique Kerr MD [address] [place] [address] [place] [address] [email or web address] Otolaryngology 02/21/20 Albert Headley MD [address] [place] [address] [place] [address] Cardiology 03/22/20 documented as of this encounter Additional Source Comments The information contained in this document represents components of the legal health record. It is not the complete legal health record.[facility]
--- OUTSIDE RECORDS SUMMARY | 2025-01-16 15:57 | XMS_ITS | Encounter Summary ---
Author Organization [facility] Address [address] [place] [address] Phone Care Team Providers Care Reproduction Artist Name Role Phone Cruzito Cannon MD Primary Care Provider [phone] Juan Pablo Andres MD Unavailable Enrique Kerr MD Unavailable Albert Headley MD Unavailable [phone] Encounter Details Date Type Department Care Team (Late Contact Info) Description 07/21/2022 Procedure Pass [place] Admitting Dept - [facility] Department [address] [place] [phone] Social History Tobacco Use Types Packs/Day Years [...] Description 02/16/2025 10:30 AM EST Office Visit [facility] Internal Medicine [address] [place] [address] Cruzito Cannon MD [address] [place], [place] [email or web address] 07/18/2025 10:00 AM EDT Office Visit [facility] Internal Medicine [address] [place], [place] [phone] Cruzito Cannon MD [address] [place], [place] [email or web address] documented as of this encounter Visit Diagnoses Not on filedocumented in this encounter Additional Health Concerns Infection Onset Date Last Indicated Resolved Time 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 07/01/2022 06/30/2024 1:21 AM EDT Assessment Noted Time PHQ-2 Depression Total Score: 0 05/01/19 10:54 AM EST documented as of this encounter Care Teams Reproduction Artist Relationship Specialty Start Date End Date Cruzito Cannon MD [address] [place] [address] [email or web address] PCP - General Internal Medicine 02/05/17 Juan Pablo Andres MD [address] [place] [address] Physical Medicine and Rehabilitation 02/06/20 Enrique Kerr MD [address] [place], [place] [address] [address] [address] [email or web address] Otolaryngology 02/21/20 Albert Headley MD [address] [place], [place] [address] [address] [address] Cardiology 03/22/20 documented as of this encounter Additional Source Comments The information contained in this document represents components of the legal health record. It is not the complete legal health record.[facility]
--- OUTSIDE RECORDS SUMMARY | 2025-01-16 15:57 | XMS_ITS | Data Portability ---
Author Organization [place] - [facility], Allergy Address [address] [address] Care Team Providers Care Biosolids Management Technician Name Role Phone CELESTE MORENO Primary Care Provider Assessment Encounter Date Assessment Date Assessment LastModified by Organization Details LastModified Time 07/13/2024 07/13/2024 Right ear has healed well following placement of ossea bone-conduction implant. I suspect that his residual low-level pain is related to sensitivity caused by his underlying migraine phenomenon. He will be meeting with Cate in audiology later today for implant activation. Patient instructed to monitor for redness or pain around the implant magnet site. Not available 07/13/2024 13:11:04 08/14/2024 08/14/2024 74-year-old male presents today for evaluation of recurrent episodes of dysphagia described as the food not going down well, happening 1-2 times per week. He has not been on a PPI but does have some symptoms of reflux and heartburn. Neck exam is normal. Oropharyngeal exam is normal. Flexible laryngoscopy shows some mild cobblestoning and erythema, no obstruction or mass. I did recommend starting a PPI for 6 to 8 weeks. He may decide to see with the upper endoscopy which is scheduled for next week shows first. If the EGD is unremarkable and there is no improvement after use of a PPI, would recommend a swallow study. [email or web address] Not available 08/16/2024 07:08:53 01/09/2025 01/09/2025 Ron's Osia implant site appears [...] a major trigger for his headache symptoms. Not available 01/09/2025 11:14:34 Plan of Treatment [...] Active cochleove stibular M ni re's disease 523322484 Active 2014 Active Meniere's disease, cochleove stibular; Note: Date Diagnosed : 03/27/2014 8:44 AM (386.01) Not Available [facility] 4 02:17:07 Subjectiv e tinnitus 57410608 Active 2014 Subjectiv e tinnitus; Note: Date Diagnosed : 03/27/2014 8:42 AM (388.31) Not Available [facility] 4 02:17:03 Migraine variants 617794285 Active 2014 Migraine variant; Note: Date Diagnosed : 03/27/2014 8:42 AM (346.20) Not Available [facility] 4 02:17:53 Allergic rhinitis 17783183 Active 2014 Allergic rhinitis: Due to other allergen; Note: Date Diagnosed : 05/16/2014 12:01 PM (477.8) Not Available [facility] 4 02:17:30 Vertigo of central origin NOS Active 2015 Vertigo of central origin, unspecifi ed ear; Note: Changed from H81.41 to H81.49 ( 7 1:24 PM) , Date Diagnosed : 06/11/2015 9:19 AM (H81.41) [mapped from ICD9 code: 386.2] Not Available [facility] 4 02:17:30 Dizziness and giddiness 533318504 Active 2015 Dizziness ; Note: Date Diagnosed : 03/27/2014 8:42 AM (780.4) ; Start Date : 5 Dizzine ss and giddiness ; Note: Date Diagnosed : 06/11/2015 9:19 AM (R42) [mapped from ICD9 code: 780.4] Not Available [facility] 4 02:17:05 Seasonal allergic rhinitis 424864478 Active 2015 Other seasonal allergic rhinitis; Note: Date Diagnosed : 06/11/2015 9:19 AM (J30.2) [mapped from ICD9 code: 477.8] Not Available [facility] 4 02:17:26 Tinnitus of right ear 55581512699 08 Active 2015 Tinnitus, right ear; Note: Date Diagnosed : 06/11/2015 9:19 AM (H93.11) [mapped from ICD9 code: 388.31] Not Available [facility] 4 02:17:00 Migraine 32851473 Active 2015 Other migraine, not intractab le, without status migrainos us; Note: Date Diagnosed : 06/11/2015 9:19 AM (G43.809) [mapped from ICD9 code: 346.20] Not Available [facility] 4 02:17:35 Sensorine ural hearing loss 59733259 Active 2015 Sensorine ural hearing loss, unilatera l, right ear, with unrestric jesu hearing on the contralat eral side; Note: Date Diagnosed : 10/21/2015 1:13 PM (H90.41) Not Available [facility] 4 02:17:31 Tinnitus of left ear 46363986278 06 Active 2016 Tinnitus, left ear; Note: Date Diagnosed : 04/30/2016 12:53 PM (H93.12) Not Available [facility] 4 02:17:46 Sensorine ural hearing loss of bilateral ears 570834363 Active 2016 Sensorine ural hearing loss, bilateral ; Note: Date Diagnosed : 08/28/2016 12:20 PM (H90.3) Sensori neural hearing loss, bilateral ; Note: Date Diagnosed : 07/02/2015 1:52 PM (H90.3) ; Start Date : 6 Not Available [facility] 4 02:17:11 M ni re's disease 99120332 Active 2016 Meniere's disease, right ear; Note: Date Diagnosed : 06/11/2015 9:19 AM (H81.01) [mapped from ICD9 code: 386.01] ; Start Date : 6 Meniere 's disease, bilateral ; Note: Date Diagnosed : 09/03/2016 1:23 PM (H81.03) Not Available [facility] 4 02:17:05 Bilateral temporoma ndibular joint pain 07351575091 970009 Active 2017 Arthralgi a of bilateral temporoma ndibular joint; Note: Date Diagnosed : 07/30/2017 9:16 AM (M26.623) Not Available [facility] 4 02:17:25 Otalgia of right ear 5390580191 Active 2017 Otalgia, right ear; Note: Date Diagnosed : 07/30/2017 9:16 AM (H92.01) Not Available [facility] 4 02:17:17 Referred otalgia 81003862 Active 2017 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; Note: Date Diagnosed : 02/09/2018 3:38 PM (388.72) Not Available [facility] 4 02:18:00 Otalgia of left ear 7233741891 Active 2017 Otalgia, left ear; Note: Date Diagnosed : 02/09/2018 3:58 PM (H92.02) Not Available [facility] 4 02:17:05 Impacted cerumen in left ear 46210606418 85215 Active 2017 Impacted cerumen, left ear; Note: Date Diagnosed : 02/09/2018 3:38 PM (H61.22) Not Available [facility] 4 02:17:31 Abnormal auditory perceptio n 44782067 Active 2017 Other abnormal auditory perceptio ns, left ear; Note: Date Diagnosed : 02/09/2018 3:58 PM (H93.292) Not Available [facility] 4 02:17:42 Neck pain 69297352 Active 2019 Cervicalg ia; Note: Date Diagnosed : 04/06/2019 11:43 AM (M54.2) SHARLENE WEBSTER MD [address] [place] [address], [place], [address] [facility] 5 11:11:24 Follow-up visit Active 2019 Encounter for follow-up examinati on after completed treatment for condition s other than malignant neoplasm; Note: Date Diagnosed : 05/12/2019 3:39 PM (Z09) Medical surveilla nce following completed treatment ; Note: Date Diagnosed : 12/13/2015 12:59 PM (Z09) ; Start Date : 6 Not Available [facility] 4 02:16:53 Sudden idiopathi c hearing loss 710548796 Active 2020 Sudden idiopathi c hearing loss, left ear; Note: Date Diagnosed : 10/22/2020 5:03 PM (H91.22) Not Available [facility] 4 02:16:55 Bilateral tinnitus 47811774580 02 Active 2021 Tinnitus, bilateral ; Note: Date Diagnosed : 06/10/2021 2:28 PM (H93.13) Not Available [facility] 4 02:16:58 Vertigo of central origin 99116198 Active 2021 Vertigo of central origin; Note: Date Diagnosed : 03/27/2014 8:42 AM (386.2) ; Start Date : 5 Vertigo of central origin; Note: Date Diagnosed : 06/10/2021 2:24 PM (H81.4) Not Available [facility] 4 02:16:58 Dysfuncti on of eustachia n tube 66450652 Active 2023 SHARLENE WEBSTER MD 100 [facility],[place] [address], [place], [address] , [facility] - [facility] 4 16:36:49 Atypical facial pain 87760054 Active 2024 MAIN CHRISTENSEN MD 100 [facility],[place] [address], [place], [address] , [place] [facility] 5 11:48:35 Dysphagia 68493980 Active 2024 SHARLENE WEBSTER MD 100 [facility],[place] [address], [place], [address] , [facility] - [facility] 5 13:10:34 Gastric reflux 517986092 Active 2024 MIAN CHRISTENSEN MD 100 [facility],[place] [address], [place], [place], [address] , [place] - [facility] 5 14:19:14 Oropharyn geal dysphagia 56922286 Active 2024 MIAN CHRISTENSEN MD [address] [place] [address],[place] [address], [place], [address] , [place] - [facility] 5 14:19:25 Notes:Ulcer of nose (septum) (478.19) [...] Laryngoscopy (Comprehensive) completed MIAN CHRISTENSEN MD 100 [facility],[address], [address], [facility] - [facility] 08/16/2024 07:07:22 06/03/19 25 IMPLANTATION OF ELECTROMAGNETIC BONE CONDUCTION HEARING DEVICE IN TEMPORAL BONE (SURG) completed SHARLENE WEBSTER MD [address] [place] [address],[address], [address], [facility] - [facility] 01/08/2025 14:04:54 05/05/19 25 Telehealth completed SHARLENE WEBSTER MD [address] [place] [address],[address], [address], [facility] - [facility] 05/05/2024 14:53:58 01/31/20 24 Comp Audio with Tymps - 10999 & 79440 completed JOVAN NIETO [address] [place] [address],[address], [address], [facility] - [facility] 01/31/2024 15:46:41 Imaging Results None recorded. Procedure Notes None recorded. Medical Equipment Implant RYAN Issuing Agency Serial Number Lot Number Status Provider Name and Address Organization Details Recorded Time Osia implant FDA [id number], [id number] Y SHARLENE WEBSTER MD [address] [place] [address],[address], [address], [place] - [facility] 06/02/2024 14:01:29 Allergies Allergen ID Allergen Name Allergen Category Reaction Reaction Severity Criticality Documentation Date Start Date Code Code System Note Provider Name and Address Organization Details Recorded Time 27917 Bactrim medicatio n other Not available Not available 07/20/2023 27626 9 RxNorm React ion: unkno wn, unspe cifie d;; Not Available [facility] 00:[facility] Medications Name Sig Start Date Stop Date Status Note LastModified by Organization Details LastModified Time prednison e 10 mg tablet by mouth 06/10 completed Medicati on ID: [id number] D uration Value: 14 Prescri bed By Name: Lacho Monzon nd Name: predniso ne Send Method: E-Prescr [...] elayed release 01/30 completed Medicati on ID: [id number] B rand Name: omeprazo le Send Method: E-Prescr ibed Sub s Allowed: subs OK Medic ationGen ericName : omeprazo le Not Available Not Available Not Available Zofran 8 mg tablet 1 tablet by mouth 12/15 completed Medicati on ID: [id number] Pr escribed By Name: Lacho Monzon nd [...] mg capsule 02/05 completed Medicati on ID: [id number] D uration Value: 30 Brand Name: tamsulos in Send Method: E-Prescr ibed Sub s Allowed: subs OK Medic ationGen ericName : tamsulos in Not Available Not Available Not Available meclizine 25 mg tablet 1 tablet by mouth 12/15 completed Medicati on ID: [id number] Pr escribed By Name: Lacho Monzon nd Name: meclizin e Send Method: E-Prescr ibed Sub s Allowed: subs OK Medic ationGen ericName : meclizin e Not Available Not Available Not Available nortripty line 10 mg capsule 1 capsule by mouth 07/30 completed Medicati on ID: [id number] P rescribe d By Name: Lacho Monzon [...] mg capsule 06/10 completed Medicati on ID: [id number] D uration Value: 30 Brand Name: gabapent [...] as directed 12/15 completed Medicati on ID: [id number] R lissette: () Brand Name: Dyazide Send Method: E-Prescr ibed Sub s Allowed: subs OK Medic ationGen ericName : Dyazide Not Available Not Available Not Available albuterol sulfate HFA 90 mcg/actua tion aerosol inhaler 03/30 completed Medicati on ID: [id number] B rand Name: albutero l sulfate Send Method: E-Prescr ibed Sub s Allowed: subs OK Medic ationGen ericName : albutero l sulfate Not Available Not Available Not Available [place] 5 mg-325 mg tablet 1-2 tablet by mouth 01/30 completed Medicati on ID: [id number] D uration Value: 7 Prescri bed By Name: Lacho Monzon nd Name: [place] Se nd Method: E-Prescr ibed Sub s Allowed: subs OK Medic ationGen ericName : [place] Not Available Not Available Not Available fluticaso ne propionat e 50 mcg/actua tion nasal spray,aicha pension 03/30 completed Medicati on ID: [id number] B rand Name: fluticas one propiona te [...] 24 hr 02/05 completed Medicati on ID: [id number] B rand Name: alfuzosi n Send Method: E-Prescr ibed Sub s Allowed: subs OK Medic ationGen ericName : alfuzosi n Not Available Not Available Not Available oxycodone 10 mg tablet PLEASE SEE ATTACHED FOR DETAILED DIRECTIO NS 07/13 completed Not Available Not Available Not Available Paxlovid 300 mg (150 mg x 2)-100 mg tablets in a dose pack 01/30 completed Medicati on ID: [id number] B rand Name: Paxlovid (EUA) Se nd Method: E-Prescr ibed Sub s Allowed: subs OK Medic ationGen ericName : Paxlovid (EUA) Not Available Not Available Not Available Vitals Date Recorded Body height Body weight Provider Name and Address Organization Details Last Updated DateTime 07/13/2024 177.8 cm 60940.66 g Mary Lou Hendricks [place] - [facility] 07/13/2024 12:52:07 Date Recorded Body height Body mass index (BMI) Body weight Provider Name and Address Organization Details Last Updated DateTime 08/14/2024 179.07 cm 25.7 kg/m2 34117.81 g Ameena Woodson [place] - [facility] 08/14/2024 14:06:35 Date Recorded Body height Body weight Provider Name and Address Organization Details Last Updated DateTime 01/09/2025 179.07 cm 60714.63 g Mary Lou Hendricks [place] - [facility] 01/09/2025 10:33:07 Social History None recorded. Functional Status None recorded. Mental Status None recorded. Family History Nothing Reported. Medical History Condition Response Headaches Y Thyroid Problems Y GERD/Reflux Y High Cholesterol Y Past Encounters Encounter ID Performer Location Encounter Start Date Encounter Closed Date Diagnosis/Indication Diagnosis SNOMED-CT Code Diagnosis ICD10 Code Diagnosis IMO Codes Diagnosis Note [id number] JOVAN NIETO [facility] on [address] [place] [address] 01/31/2024 15:46:23 01/31/2024 17:32:38 Sensorineural hearing loss of bilateral ears 103852509 H90.3 Audiologic al evaluation results: 01/31/2024 Right ear:DNT known profound loss Left ear:Normal sloping to severe sensorineu ral hearing loss with excellent word recognitio n. Tympanomet ry: Left Ear:Type A [id number] SHARLENE WEBSTER MD [facility] on [address] [place] [address] 01/31/2024 16:32:41 01/31/2024 16:42:50 Sensorineural hearing loss of bilateral ears 126546202 H90.3 Audiologic al evaluation results: 01/31/2024 Right ear:DNT known profound loss Left ear:Normal sloping to severe sensorineu ral hearing loss with excellent word recognitio n. Tympanomet ry: Left Ear:Type A Dysfunctio n of eustachian tube 26448986 H68.102 Migraine variants 868654 005 G43.809 I strongly recommend that the patient seek consultati on with a neurologis t who is well versed in treatment of migraine phenomena, particular ly in light of the fact that there are multiple new pharmacolo gic options for treatment of chronic migraine that have not been available in the past. He will speak with his primary care physician about this. [id number] MIAN CHRISTENSEN MD [facility] on [address] [place] [address] 03/30/2024 10:59:12 03/30/2024 12:49:42 Atypical facial pain 71935053 G50.1 [id number] JOVAN WONG [place] 100 [facility] it 100 [place] [address] 04/25/2024 10:50:25 04/26/2024 07:54:13 Sensorineural hearing loss of bilateral ears 351324838 H90.3 [id number] SHARLENE WEBSTER MD [facility] [address] [place] [address] 05/05/2024 08:17:46 05/08/2024 07:31:58 Sensorineural hearing loss 08878694 H90.41 Patient with right single-mayte ed deafness with essentiall y normal hearing in the left ear. The patient has been found to meet the audiologic and anatomic candidacy criteria for placement of right Osia bone conduction implant. Risks and benefits [...] with the contact informatio n for my surgical dental assistant. We will begin the scheduling process and see the patient back at the time of surgery. Patient will not require medical clearance from their primary care provider preoperati vely. [id number] RENEE GARCIA PA-C [facility] [address] [place] [address] 06/09/2024 13:14:42 06/09/2024 13:42:07 Postoperative visit 053719511 Z48.89 [id number] SHARLENE WEBSTER MD [facility] [address] [address] 07/13/2024 12:46:52 07/13/2024 13:11:00 History of tissue/organ recipient 947713091 Z96.29 [id number] Dysphagia 45032717 R13.1 9 [id number] Patient has appointmen t coming up with Dr. Christensen to evaluate dysphagia. He has also an appointmen t with a gastroente rologist in this regard as well. [id number] JOVAN WONG [place] [address] [place] [address] 07/13/2024 12:47:13 07/14/2024 09:08:53 Sensorineural hearing loss 11209093 H90.41 [id number] JOVAN WONG [place] [address] [place] [address] 07/18/2024 10:00:24 07/19/2024 11:21:02 Sensorineural hearing loss of bilateral ears 636547324 H90.3 [id number] MIAN CHRISTENSEN MD [facility] [address] [address] 08/14/2024 14:00:42 08/14/2024 16:07:03 Gastric reflux 805009808 K21.9 [id number] Oropharyng eal dysphagia 33048599 R13.12 [id number] JOVAN WONG [place] [address] [address] 09/22/2024 13:53:24 09/26/2024 21:26:55 Sensorineural hearing loss of bilateral ears 485094196 H90.3 [id number] SHARLENE WEBSTER MD [facility] [address] [address] 01/09/2025 10:27:42 01/09/2025 11:13:34 Migraine 65491580 G43.809 History of tissue/organ recipient 554782916 Z96.29 [id number] Otalgia of right ear 224 6356439 H92.01 Neck pain 73216520 M54.2 [id number] Health Concerns Section Related Observation LastModified by Organization Detai ls LastModified Time None Recorded Concern Status LastModified by Organization Details LastModified Time None Recorded Advance Directives Directive None Recorded Payers Insurance Date Sequence Insurance Name Policy Number Policy Manrique Covered Member ID Manrique Member ID Guarantor Name 01/11/2025 2 BCBS-[place]:[facility] PL[facility] F (MEDICARE SUPPLEMENT) [id number] Ron Cavazos [id number] Ron Cavazos 01/11/2025 1 [place] [employer] Ron Cavazos [id number] Ron Cavazos 01/11/2025 2 [place] [id number] Ron Cavazos [id number] Ron Cavazos Notes Date Note Type Note Provider Name and Address Organization Details Recorded Time 07/13/2024 text/html Patient with profound right-sided sensorineural hearing loss who underwent placement of right ossea bone-conduction implant on 06/02/2024. Patient had some discomfort postoperatively which is overall getting better, but still having nagging pain here and there. He comes in today for postoperative evaluation and implant activation. SHARLENE WEBSTER MD [address], [address], [place] - [facility] 07/13/2024 13:11:51 07/13/2024 text/html Forgot his backpack at home. Rescheduled for another day. JOVAN WONG [address], [address], [place] - [facility] 07/13/2024 13:30:28 07/18/2024 text/html Osia Activation: Connected to software and completed ORA, feedback performing arts road manager would not run, and Direct[employer]. Changes after prescription calculated includes: decreased own voice by two steps and loudness by 1 step Programs: P1: everyday Z0slawbezz but two clicks softer P3:everyday but two click louder Comfortable opening the battery door, inserting battery, and placing device on head. Discussed the battery life and he different beeps they may hear: start up tube, changing programs, and low battery signal. Appointment booked with Camila for August 01 at 11 Appointment to FU with me booked for August 11 CATE OBREGON, JOVAN 100 [facility],[place], [place], [address], [place] [facility] 07/18/2024 10:56:37 08/14/2024 text/html 74 yo M presents for dysphagia eating first few bites because it does not go down, happens 1 or 2 times per weekrice is a triggerno episode trouble breathing but can feel like he is breathing heavilywill gag and then it goes down first noted several months agofather had something similar does have reflux/ heartburn, no PPI feels bruise on cavazos apple, can feel sore when he touches itpreviously thyroid biopsy, looked fine due for colonoscopy and EGD has sore implant, seeing Cate next week MIAN CHRISTENSEN MD 100 [facility],[place] [address], [place], [address], [facility] - [facility] 08/16/2024 07:09:17 09/22/2024 text/html Check on fit of Osia. Still notes pain with or without the device. Is going to talk to Dr Webster about this when he sees him next. [employer] completed using all frequencies. Increased volume on level three. We also changed the beep frequency to high and turned up the volume. Everything seems okay in office. There is slightly more feedback in program three due to the gain being high. CATE OBREGON, JOVAN 100 [facility] [address], [place], [address], [place] [facility] 09/22/2024 14:34:15 01/09/2025 text/html 74-year-old male with underlying chronic [...] light, sound, motion etc. SHARLENE WEBSTER MD [address] [place] [address], [place], [address], [place] [facility] 01/09/2025 11:14:49
--- OUTSIDE RECORDS SUMMARY | 2025-01-16 15:58 | XMS_ITS | Encounter Summary ---
Author Organization [facility] Address [address] [place] [phone] Phone Care Team Providers Care Pipe Washer Name Role Phone Cruzito Cannon MD Primary Care Provider Juan Pablo Andres MD Unavailable Enrique Kerr MD Unavailable Albert Headley MD Unavailable Encounter Details Date Type Department Care Team (Late st Contact Info) Description 12/20/2024 Orders Only [facility] [address] [place] [address] Provider, MD Corry [address] [place] [id number] Social History Tobacco Use Types Packs/Day Years [...] Description 02/16/2025 10:30 AM EST Office Visit [facility] Internal Medicine [address] [place] [address] Cruzito Cannon MD [address] [place] [address] 07/18/2025 10:00 AM EDT Office Visit [facility] Internal Medicine [address] [place] [address] Cruzito Cannon MD [address] [place] [address] documented as of this encounter Procedures Procedure Name Priority Date/Time Associated Diagnosis Comments OUTSIDE PATHOLOGY Routine 12/20/2024 9:2 7 AM EDT HM COLONOSCOPY FOR RESULT ENTRY ONLY Routine 12/20/2024 9:26 AM EDT documented in this encounter Results * Outside Pathology (12/20/2024 9:27 AM EDT) us Historical Provider PATHOLOGY ORDERABLES Gisela l Result * HM COLONOSCOPY FOR RESULT ENTRY ONLY (12/20/2024 9:26 AM EDT) us Historical Provider HEALTH MAINTENANCE Final Result documented in this encounter Visit Diagnoses Not on filedocumented in this encounter Additional Health Concerns Assessment Noted Time PHQ-2 Depression Total Score: 0 07/15/19 25 9:47 AM EDT documented as of this encounter Care Teams Pipe Washer Relationship Specialty Start Date End Date Cruzito Cannon MD [address] [place] [address] [email or web address] PCP - General Internal Medicine 02/05/17 Juan Pablo Andres MD [address] [place] [address] Physical Medicine and Rehabilitation 02/06/20 Enrique Kerr MD [facility] [address] [address] [email or web address] Otolaryngology 02/21/20 Albert Headley MD 100 [facility] [address] [address] Cardiology 03/22/20 documented as of this encounter Additional Source Comments The information contained in this document represents components of the legal health record. It is not the complete legal health record.[facility]
--- OUTSIDE RECORDS SUMMARY | 2025-01-16 15:58 | XMS_ITS | Encounter Summary ---
Author Organization [facility] Address [address] [place] [address] Phone Care Team Providers Care Home Hospice Rn Name Role Phone Cruzito Cannon MD Primary Care Provider Juan Pablo Andres MD Unavailable Enrique Kerr MD Unavailable [phone] Albert Headley MD Unavailable [phone] Encounter Details Date Type Department Care Team (Late st Contact Info) Description 05/07/2021 Ancillary Orders [facility],Outside Imaging [address] [place] [address] System, Provider Not In, [place] [address] Social History Tobacco Use Types Packs/Day Years [...] Description 02/16/2025 10:30 AM EST Office Visit [facility] Internal Medicine [address] [place] [address] Cruzito Cannon MD [address] [place], [place] [phone] 07/18/2025 10:00 AM EDT Office Visit [facility] Internal Medicine [address] [place], [place] [phone] Cruzito Cannon MD [address] [place], [place] [phone] documented as of this encounter Results * [...] documented as of this encounter Care Teams Home Hospice Rn Relationship Specialty Start Date End Date Cruzito Cannon MD [address] [place], [place] [phone] PCP - General Internal Medicine 02/05/17 Juan Pablo Andres MD [address] [place] [address] Physical Medicine and Rehabilitation 02/06/20 Enrique Kerr MD [address] [place] [address] [address] [email or web address] 02/21/20 Albert Headley MD [address] [address] Cardiology 03/22/20 documented as of this encounter Additional Source Comments The information contained in this document represents components of the legal health record. It is not the complete legal health record.[facility]
--- OUTSIDE RECORDS SUMMARY | 2025-01-16 15:58 | XMS_ITS | Encounter Summary ---
Author Organization [facility] Address [address] [place] [phone] Phone Care Team Providers Care Unit Nurse Name Role Phone Cruzito Cannon MD Primary Care Provider Juan Pablo Andres MD Unavailable Enrique Kerr MD Unavailable [phone] Albert Headley MD Unavailable Reason for Visit * Reason Onset Date Comments Tramadol 01/01/2025 Encounter Details Date Type Department Care Team ([facility] Contact Info) Description 01/01/2025 Telephone app[employer]obi [facility] Internal Medicine [address] [place], [place] [phone] Cruzito Cannon MD [address] [place], [place] [phone] [email or web address] Tramadol Social History Tobacco Use Types Packs/Day Years [...] on file documented as of this encounter Progress Notes * Cruzito Cannon MD - 01/01/2025 6:22 PM EDT Spoke to patient. He thought Tramadol was an anti-inflammatory drug. I explained to him what it is and he said he did not want it at this time. He really cannot tolerate anti-inflammatory drugs either as he has been having gastric issues and seeing [facility]. He is now seeing Dr. Yoana Agrawal. He will get in touch with me if he needs something else. * Raul Johns - 01/01/2025 4:37 PM EDT Patient left voicemail that he was seen by pain management who wants to do a nerve block in his neck. States they told him he is loaded with arthritis and a pinched nerve. He states they do not prescribe medication and he was told by a friend of his that Tramadol works for his pain and he is wondering if provider feels this is an option for him. Please advise. documented in this encounter Plan of Treatment Upcoming Encounters Date Type Department Care Team (Late st Contact Info) Description 02/16/2025 10:30 AM EST Office Visit [facility] Internal Medicine [address] [place] [address] Cruzito Cannon MD [address] [place], [place] [email or web address] 07/18/2025 10:00 AM EDT Office Visit [facility] Internal Medicine [address] [place], [place] [phone] Cruzito Cannon MD [address] [place], [place] [email or web address] documented as of this encounter Visit Diagnoses Not on filedocumented in this encounter Additional Health Concerns Assessment Noted Time PHQ-2 Depression Total Score: 0 07/15/19 25 9:47 AM EDT documented as of this encounter Care Teams Unit Nurse Relationship Specialty Start Date End Date Cruzito Cannon MD [address] [place] [address] [email or web address] PCP - General Internal Medicine 02/05/17 Juan Pablo Andres MD [address] [place] [address] Physical Medicine and Rehabilitation 02/06/20 Enrique Kerr MD [address] [place], [place] [address] [address] [address] [email or web address] Otolaryngology 02/21/20 Albert Headley MD [address] [facility] [address] [address] Cardiology 03/22/20 documented as of this encounter Additional Source Comments The information contained in this document represents components of the legal health record. It is not the complete legal health record.[facility]
== END 2025-01-16 14:19 | disposition home or self-care (01) ==
LOC: HO.XRAY 14:18
PROVIDERS: PCP Internal Medicine; Visit Provider Nurse Practitioner
DX: R13.10 Dysphagia, unspecified (principal)
CPT/HCPCS: 74230; 92611

== ENCOUNTER → 2025-01-16 14:30 | Outpatient (BNV) | payer MEDICARE, SELFPAY | PROVIDERS: PCP Internal Medicine; Visit Provider Radiology Diagnostic Ultrasound | DX: R13.10 Dysphagia, unspecified (principal) | CPT/HCPCS: 74230 ==